=== PATIENT | female | born 1990 | race Caucasian/White ===

== ENCOUNTER 2023-06-12 14:37 | Emergency (ER) | payer MEDICAID, SELFPAY ==
[2023-06-12 14:58] VITALS: BP 135/92; PULSE 94; TEMP 36.7; O2SAT 99; BMI 22.5
--- NOTE | 2023-06-12 15:12 | US_ITS ---
The [address] [address] Patient Name: ELIDIA LEMA MRN: [id number] date: 1990 Sex: F Assigned Patient Location: ER Current Patient Location: ER Accession/Order Number: [id number] Exam Date: 06/12/2023 16:05 Report Date: 06/12/2023 17:15 At the request of: SILVA GUAJARDO Procedure: US pelvis transvaginal PROCEDURE: US pelvis transvaginal, US vas organ single comp, 06/12/2023 4:05 PM EDT CLINICAL INDICATIONS: Right pelvic pain, evaluation for adnexal torsion, prior section 2 para 1 LMP 05/16/2023 COMPARISON: None TECHNIQUE: Transabdominal, transvaginal pelvic sonogram, grayscale, color and spectral evaluation. FINDINGS: Uterus: 8.5 x 5.6 x 4.6 cm. The endometrial echo complex is normal 0.8 cm. 1.5 x 1.3 x 1.2 cm hypoechoic intramural ventral body uterine fibroid is seen. Right ovary: 3.9 x 2.8 x 3.7 cm, volume 21 mL. Subcentimeter follicles are seen. A dominant 2.7 x 1.1 x 1.1 cm right ovarian follicle identified. Left ovary: 3.5 x 1.5 x 2.3 cm, volume 6 mL. Normal sonographic morphology. No focal abnormality demonstrated. DUPLEX PELVIC VASCULATURE: There is intact flow within the ovarian tissue bilaterally by color-flow assessment. Arterial and venous spectral tracing is identified from within. Right resistive index 0.47, left 0.59. No significant pelvic free fluid. US/US pelvis transvaginal IMPRESSION: 1. 1.5 cm intramural ventral body uterine fibroid 2. 2.7 cm right ovarian dominant follicle. 3. Normal left ovarian sonographic morphology 4. No sonographic criteria for adnexal torsion 5. No pelvic free fluid Electronically authenticated by: YOKASTA CABRAL Date: 06/12/2023 17:15
--- NOTE | 2023-06-12 15:13 | ED.ABDPAIN1 ---
HPI - Abdominal Pain General Chief Complaint: Abdominal Pain Stated Complaint: RIGHT SIDE PAIN Time Seen by Provider: 06/12/23 15:07 Source: patient Mode of arrival: Wheelchair History of Present Illness HPI narrative: 33-year-old female presents to the emergency department for pain in the right lower abdomen. It started off mild last night and has gotten worse since then. She has a history of endometriosis and has had about 18 abdominal surgeries. She also reports that she had left ovarian torsion and had surgery for it. No vaginal bleeding or dysuria or back pain. She has been nauseous and the pain is severe and continuous. Related Data Previous Rx's ?Medication ?Instructions ?Recorded hydrocodone 5 mg-acetaminophen 325 1 tab PO Q6H PRN pain 5 days #20 06/12/23 mg tablet tabs Allergies Allergy/AdvReac Type Severity Reaction Status Date / Time Penicillins AdvReac Severe Verified 06/12/23 15:01 Sulfa (Sulfonamide AdvReac Unknown Verified 06/12/23 15:01 Antibiotics) Review of Systems ROS Narrative A ten point review of systems is negative except as noted above. Exam Narrative Exam Narrative: Nurses note and vital signs reviewed and patient is not hypoxic. General: The patient appears uncomfortable. She is lying on her right side with her hips and knees flexed Skin: Warm, dry, no pallor noted. There is no rash noted. Head: Normocephalic, atraumatic Eye: Normal conjunctiva, no drainage Ears, Nose, Mouth, and Throat: oral mucosa is moist. Nares patent. Cardiovascular: Regular Rate and Rhythm Respiratory: Patient is in no distress, no accessory muscle use, lungs are clear to auscultation, no wheezing, rales or rhonchi Back: non-tender, no CVA tenderness bilaterally to percussion. GI: Nondistended, tenderness present in the right lower quadrant. Musculoskeletal: No joint swelling Neurological: A&O, normal speech Psychiatric: Cooperative, tearful Constitutional Vital Signs, click to edit/add: Last Vital Signs Temp 98.0 F 06/12/23 14:58 Pulse 94 H 06/12/23 14:58 Resp 20 06/12/23 14:58 BP 135/92 H 06/12/23 14:58 Pulse Ox 99 06/12/23 14:58 O2 Del Method Room Air 06/12/23 14:58 Course Vital Signs Vital signs: Vital Signs Temperature 98.0 F 06/12/23 14:58 Pulse Rate 94 H 06/12/23 14:58 Respiratory Rate 20 06/12/23 14:58 Blood Pressure 135/92 H 06/12/23 14:58 Pulse Oximetry 99 06/12/23 14:58 Oxygen Delivery Method Room Air 06/12/23 14:58 Temperature 98.0 F 06/12/23 14:58 Pulse Rate 94 H 06/12/23 14:58 Respiratory Rate 20 06/12/23 14:58 Blood Pressure 135/92 H 06/12/23 14:58 Pulse Oximetry 99 06/12/23 14:58 Oxygen Delivery Method Room Air 06/12/23 14:58 MDM - Abdominal Pain MDM Narrative Medical decision making narrative: Workup including pelvic ultrasound and CT abdomen is negative. 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 Treatment diagnosis and follow-up were discussed with the patient and her mother. Differential Diagnosis Differential diagnosis: Likely abdominal pain, acute appendicitis, constipation, endometriosis and gastroenteritis Lab Data Attestation: I reviewed the patient's lab results. Labs: Lab Results 06/12/23 06/12/23 Range/Units 15:17 17:46 WBC 11.5 H (4.0-11.0) 10^3/uL RBC 4.24 (4.20-5.40) 10^6/uL Hgb 11.0 L (12.0-16.0) g/dL Hct 34.8 L (36.0-48.0) % MCV 82.1 (81.0-99.0) fL MCH 25.9 L (26.7-34.0) pg MCHC 31.6 (29.9-35.2) g/dL RDW 16.0 H (11.0-15.0) % Plt Count 266 (150-450) 10^3/uL MPV 10.5 (9.5-13.5) fL Neut % (Auto) 80.2 H (43.0-75.0) % Lymph % (Auto) 14.4 L (20.5-60.0) % [place] % (Auto) 4.4 (1.7-12.0) % Eos % (Auto) 0.3 L (0.9-7.0) % Baso % (Auto) 0.4 (0.2-2.0) % Neut # (Auto) 9.3 H (1.4-6.5) 10^3/uL Lymph # (Auto) 1.7 (1.2-3.8) 10^3/uL [place] # (Auto) 0.5 (0.3-0.8) 10^3/uL Eos # (Auto) 0.0 (0.0-0.7) 10^3/uL Baso # (Auto) 0.1 (0.0-0.1) 10^3/uL Abs Immat Gran (auto) 0.03 (0.00-0.03) 10^3/uL Imm/Tot Granulo (auto) 0.3 (0.0-0.5) % Sodium 140 (136-145) mmol/L Potassium 3.9 (3.5-5.1) mmol/L Chloride 103 (98-107) mmol/L Carbon Dioxide 24.1 (21.0-32.0) mmol/L Anion Gap 16.8 BUN 9.0 (7.0-18.0) mg/dL Creatinine 0.68 (0.55-1.02) mg/dL Est GFR ( Amer) >60 (>=60) Est GFR (Non-Af Amer) >60 (>=60) BUN/Creatinine Ratio 13.2 Glucose 94 (74-106) mg/dL Calcium 8.9 (8.5-10.1) mg/dL Serum HCG, Qual Negative (NEGATIVE) Urine Color Lt. yellow (YELLOW) Urine Clarity Clear (CLEAR) Urine pH 5.5 (5.0-9.0) Ur Specific [place] 1.010 (1.005-1.025) Urine Protein Negative (NEG/TRACE) mg/dL Urine Glucose (UA) Negative (NEGATIVE) mg/dL Urine Ketones Trace A (NEGATIVE) mg/dL Urine Occult Blood Negative (NEGATIVE) Urine Nitrite Negative (NEGATIVE) Urine Bilirubin Negative (NEGATIVE) Urine Urobilinogen 0.2 (0.2-1.0) EU/dL Ur Leukocyte Esterase Negative (NEGATIVE) Urine RBC None seen (0-2) #/HPF Urine WBC None seen (NONE SEEN) #/HPF Ur Squamous Epith Cells Few A (NONE/RARE) #/LPF Urine Crystals None seen (None Seen) #/HPF Urine Bacteria None seen (NONE SEEN) #/HPF Urine Casts None seen (NONE SEEN) #/LPF Urine Mucus None seen (NONE SEEN) Imaging Data CT scan - abdomen: Radiologist's impression: ITS Impressions Transvaginal US 06/12/23 15:12 IMPRESSION: 1. 1.5 cm intramural ventral body uterine fibroid 2. 2.7 cm right ovarian dominant follicle. 3. Normal left ovarian sonographic morphology 4. No sonographic criteria for adnexal torsion 5. No pelvic free fluid Electronically authenticated by: YOKASTA CABRAL Date: 06/12/2023 17:15 Abdomen/Pelvis CT 06/12/23 16:31 IMPRESSION: Small area of nonspecific mild segmental right hepatic lobe periportal edema. Normal appendix. Electronically authenticated by: JUVENCIO ROSS Date: 06/12/2023 17:51 Discharge Plan Discharge Stand Alone Forms: Portal Instructions Chief Complaint: Abdominal Pain Clinical Impression: Abdominal pain Patient Disposition: Home, Self-Care Time of Disposition Decision: 18:07 Condition: Good Mode of Transportation: Private Vehicle Prescriptions / Home Meds: New hydrocodone-acetaminophen 5-325 mg tablet 1 tab PO Q6H PRN (Reason: pain) 5 Days Qty: 20 0RF Print Language: Czech Instructions: Abdominal Pain (ED) Additional Instructions: Call Dr. Painter's office in the morning Referrals: Riley Lackey MD [Primary Care Provider] - 1 week
[2023-06-12] MEDS: ONDANSETRON PF 4 MG/2 ML VIAL IV ×2 (15:23→18:43)
[2023-06-12] MEDS: MORPHINE SULFATE 4 MG/ML VIAL IV ×2 (15:23→18:36)
[2023-06-12 15:28] LABS: Basophils Absolute Auto 0.1 10^3/uL (0.0-0.1); Basophils Percent Auto 0.4 % (0.2-2.0); Eosinophils Percent Auto 0.3 % (0.9-7.0); Hematocrit 34.8 % (36.0-48.0); Immature Granulocytes Abs Auto 0.03 10^3/uL (0.00-0.03); Immature Granulocytes Pct Auto 0.3 % (0.0-0.5); Lymphocytes Absolute Auto 1.7 10^3/uL (1.2-3.8); Lymphocytes Percent Auto 14.4 % (20.5-60.0); Mean Corpuscular HGB Conc 31.6 g/dL (29.9-35.2); Mean Corpuscular Hemoglobin 25.9 pg (26.7-34.0); Mean Corpuscular Volume 82.1 fL (81.0-99.0); Mean Platelet Volume 10.5 fL (9.5-13.5); Monocytes Absolute Auto 0.5 10^3/uL (0.3-0.8); Monocytes Percent Auto 4.4 % (1.7-12.0); Neutrophils Absolute Auto 9.3 10^3/uL (1.4-6.5); Neutrophils Percent Auto 80.2 % (43.0-75.0); Platelet Count 266 10^3/uL (150-450); Red Blood Count 4.24 10^6/uL (4.20-5.40); White Blood Count 11.5 10^3/uL (4.0-11.0)
[2023-06-12 15:34] LABS: Anion Gap 16.8; BUN Creatinine Ratio 13.2; Calcium 8.9 mg/dL (8.5-10.1); Carbon Dioxide 24.1 mmol/L (21.0-32.0); Chloride 103 mmol/L (98-107); Estimated GFR (African America >60 (>=60); Estimated GFR (Non-African Ame >60 (>=60); Glucose 94 mg/dL (74-106); Potassium 3.9 mmol/L (3.5-5.1); Sodium 140 mmol/L (136-145)
[2023-06-12 15:56] LABS: HCG Qualitative NEGATIVE (NEGATIVE)
--- NOTE | 2023-06-12 16:31 | CT_ITS ---
The [address] [address] Patient Name: ELIDIA LEMA MRN: [id number] date: 1990 Sex: F Assigned Patient Location: ER Current Patient Location: ER Accession/Order Number: [id number] Exam Date: 06/12/2023 17:02 Report Date: 06/12/2023 17:51 At the request of: SILVA GUAJARDO Procedure: CT abdomen pelvis w con EXAMINATION: CT abdomen pelvis w con, 06/12/2023 2:02 PM PDT HISTORY: Right lower quadrant abdominal pain, neg US COMPARISON: 09/20/2019 TECHNIQUE: CT scan of the abdomen and pelvis was performed with IV contrast. CT dose reduction technique was used, including Automated Exposure Control. FINDINGS: Lung: No significant finding. Liver: Segmental right hepatic lobe. Portal edema, for example series 3 image 16 through 23. Gallbladder: No significant finding. Spleen: No significant finding. Pancreas: No significant finding. Adrenal glands: No significant finding. Kidneys, ureters and bladder: No significant finding. Bowel: Colonic diverticulosis without diverticulitis. No evidence of bowel obstruction. Normal appendix. Peritoneum/retroperitoneum: No significant finding. Lymph nodes: No significant finding. Vessels: As above. Body wall: No significant finding. Reproductive: Right-sided corpus luteal cyst. Bones: No significant finding. CT/CT abdomen pelvis w con IMPRESSION: Small area of nonspecific mild segmental right hepatic lobe periportal edema. Normal appendix. Electronically authenticated by: JUVENCIO ROSS Date: 06/12/2023 17:51
[2023-06-12 17:59] LABS: Bilirubin Urine NEGATIVE (NEGATIVE); Blood Urine NEGATIVE (NEGATIVE); Clarity Urine CLEAR (CLEAR); Color Urine LT. YELLOW (YELLOW); Glucose Urine UA NEGATIVE (NEGATIVE); Ketones Urine TRACE mg/dL (NEGATIVE); Leukocyte Esterase Urine NEGATIVE (NEGATIVE); Nitrite Urine NEGATIVE (NEGATIVE); Protein Urine NEGATIVE (NEG/TRACE); Urobilinogen Urine 0.2 EU/dL (0.2-1.0); pH Urine 5.5 (5.0-9.0)
[2023-06-12 18:01] LABS: Bacteria Urine NONE SEEN #/HPF (NONE SEEN); Cast Seen? NONE SEEN #/LPF (NONE SEEN); Crystals Seen? None Seen #/HPF (None Seen); Mucus Urine NONE SEEN (NONE SEEN); RBC Urine NONE SEEN #/HPF (0-2); Squamous Epithelial Cell Urine FEW #/LPF (NONE/RARE); WBC Urine NONE SEEN #/HPF (NONE SEEN)
[2023-06-12 18:16] VITALS: O2SAT 98
== END 2023-06-12 18:53 | disposition home or self-care (01) ==
PROVIDERS: Emergency Provider Emergency Medicine; PCP Family Medicine
DX: R10.9 Unspecified abdominal pain (principal); Z98.890 Other specified postprocedural states
CPT/HCPCS: 36415; 74177; 76830; 80048; 81001; 84703; 85025; 93975; 96374; 96375; 96376; 99285; Q9967

== ENCOUNTER 2023-07-18 09:59 | Outpatient (OUT) | payer MEDICAID, SELFPAY ==
--- OUTSIDE RECORDS SUMMARY | 2023-07-18 10:27 | XMS_ITS ---
Patient Summarization (C-CDA 2.1 CCD) Created on: July 18, 2023 MICHAEL LEMAN : 1990 Sex: Female Author Organization Sample organization Care Team Providers Care Garment Tag Stringer Name Role Phone System, Provider Not In Primary Care Provider Un available SYSTEM, PROVIDER NOT IN Primary Care Unavaila ble DURGA BREWSTER Consulting Unavailabl e CHAMBERS, DURGA NAVARRO Attending Unavailabl e CHAMBERSDURGA Admitting Unavailabl e KARASIK ., DR LOMELI Attending Unavailabl e SHARMAINE, [facility] Primary Care Unavailable KARASIK ., DR LOMELI Consulting Unavailabl e KARASIK ., DR LOMELI Admitting Unavailabl e ZIEBER, DR MELISSA Perez Consulting Unavailable KARASIK ., DR LOMELI Consulting Unavailabl e KARASIK ., DR LOMELI Admitting Unavailabl e KARASIK ., DR LOMELI Attending Unavailabl e REQUEST, DR NESS LISTED Primary Care Unavaila ble KARASIK ., DR LOMELI Attending Unavailabl e KARASIK ., DR LOMELI Consulting Unavailabl e KARASIK ., DR LOMELI Admitting Unavailabl e NADERER, DR KATIE Kulkarni Primary Care Unavailable KARASIK ., DR LOMELI Attending Unavailabl e SHARMAINE, [facility] Primary Care Unavailable KARASIK ., DR LOMELI Admitting Unavailabl e KARASIK ., DR LOMELI Procedure Practitioner Loretta vailable KARASIK ., DR LOMELI Consulting Unavailabl e DIANA ., DR NORMAN Consulting Unavailable ZIEBER, DR MELISSA Perez Consulting Unavailable ZEKE CONKLIN Consulting Unavailable MELISSA MEJIA Consulting Unavailable ABENA, DR FUAD Perez Consulting Unavailable ABENA, DR FUAD Perez Admitting Unavailable SHARAMINE, [facility] Primary Care Unavailable ABENA, DR FUAD Perez Attending Unavailable SHER THORPE Consulting Unavailable SHER THORPE Admitting Unavailable SHER THORPE Attending Unavailable SHARMAINE, [facility] Primary Care Unavailable SHARMAINE, [facility] Primary Care Unavailable KARASIK ., DR LOMELI Attending Unavailabl e KARASIK ., DR LOMELI Admitting Unavailtobias SCHMID, MAYRA Primary Care Unavailable ERICKA ., DR LOMELI Admitting Unavailtobias e ERICKA ., DR LOMELI Attending Unavailabl e ERICKA ., DR LOMELI Attending Unavailabl e SHARMAINE, MAYRA Primary Care Unavailable KARASIK ., DR LOMELI Consulting Unavailabl e ERICKA ., DR LOMELI Admitting UnavailRADHA Juan Attending Unavailable ESTER ORTIZ Attending Unavailable Allergies Allergy Classification Reported Allergen(s) Allergy Type Date of Onset Reaction(s) Facility (1 source) Codeine Drug Allergy 0 GI Intolerance (3 sources) Penicillins; Translations: [Unknown] Propensity to adverse reactions to drug 3 Anaphylaxis (1 source) Sulfonamides (Antibiotic) Propensity to adverse reactions to drug 0 Hives (1 source) Codeine Drug Allergy 3 [facility] (1 source) Sulfonamides (Antibiotic) Drug allergy (disorder) 3 [facility] Encounters Encounter Date Encounter Type Care Provider Facility Start: 07-05-2023 End: 07-05-2023 ambulatory ESTER ORTIZ Not Available Start: 06-15-2023 End: 06-15-2023 ambulatory RADHA VALENTIN Not Available Start: 05-25-2022 End: 05-26-[address] ARMANI CABRAL . Facility:[facility] Start: 08-24-2021 End: 02-22-2022 ambulatory MAYRA SCHMID Facility:[facility] Start: 08-21-2021 End: 09-08-2021 ambulatory MAYRA SCHMID Facility:[facility] Start: 08-13-2021 End: 08-17-2021 Evaluation and management of inpatient DR ARMANI CABRAL . Facility:[facility] Start: 06-29-2021 End: 06-29-2021 ambulatory SHER THORPE Facility:[facility] Start: 06-29-2021 End: 06-29-[address] FUAD PINEDO Facility:[facility] Start: 06-25-2021 End: 06-26-[address] ARMANI CABRAL . Facility:[facility] Start: 06-24-2021 End: 05-19-[address] ARMANI CABRAL . Facility: Start: 06-09-2021 End: 06-10-[address] ARMANI CABRAL . Facility: Start: 03-08-2019 End: 03-08-2019 Patient encounter procedure PROVIDER NOT IN SYSTEM [facility] Start: 03-08-2019 End: 03-08-2019 Emergency department patient visit Jean-Claude Gannon Work Phone: [facility] Comment on above: Torsion of left ovar y and ovarian pedicle (Primary Dx); Left ovarian cyst Medical Equipment Procedure Code Equipment Code Equipment Origin al Text Equipment Identifier Dates Hemostat 1gm Isauro sta - [id number] FDA Start: 03-08-2019 Medications Current Medications Medication Drug Class(es) Dates Sig (Normalized) Sig (Original) vitamin with Ca-Iron-FA 27-1 mg Tab (1 source) take 1 tablet by once daily vitamin with Ca-Iron-FA 27-1 mg Tab Take 1 tablet by mouth daily . 0 Active Completed/Discontinued Medications Medication Drug Class(es) Dates Sig (Normalized) Sig (Original) acetaminophen 325 mg / HYDROcodone bitartrate 5 mg oral tablet (2 sources) Opioid Agonist Start: 03-08-2019 End: 03-09-2019 take 1 tablet by mouth every four hours as needed HYDROcodone-aceta minophen (NORCO) 5-325 mg per tablet 1 tablet Start: 03-08-2019 End: 03-11-2019 take 1 tablet by mouth every four hours as needed for pain, then take 3 tablets by mouth as needed for pain HYDROcodone-acetaminophen (NORCO) 5-325 mg per tablet Indications: Torsion of left ovary and ovarian pedicle Take 1 (one) tablet by mouth every 4 (four) hours as needed for pain (Days supply per fill: 3) . 18 tablet 0 03/08/2019 03/11/2019 Active calcium chloride 0.0014 meq/ml / potassium chloride 0.004 meq/ml / sodium chloride 0.103 meq/ml / sodium lactate 0.028 meq/ml injectable solution (2 sources) Start: 03-08-2019 End: 03-09-2019 take 100 mL intravenous route every hour 100 mL/hr, Intravenous, Continuous, Starting Jemima 03/08/19 at 1900, PACU (only) Start: 03-08-2019 End: 03-09-2019 lactated Ringers infusion 1 ml HYDROmorphone hydrochloride 1 mg/ml injection (4 sources) Opioid Agonist Start: 03-08-2019 End: 03-08-2019 0.5 mg, Intravenous, Every 5 min PRN, Pain, Starting Jemima 03/08/19 at 1803, For 6 doses, PACU (only) [] Give if fentanyl not effective or not ordered. [] Do not give more than 3 mg total. Start: 03-08-2019 End: 03-08-2019 HYDROmorphone (DILAUDID) 1 m g/mL injection - ADS Override Pull Start: 03-08-2019 End: 03-09-2019 take 0.5 mg intravenous route every two hours as needed HYDROmorphone (DILAUDID) injection 0.5 mg Start: 03-08-2019 End: 03-08-2019 HYDROmorphone (DILAUDID) inj ection 1 mg 1 ml ketorolac tromethamine 30 mg/ml injection (1 source) Nonsteroidal Anti-inflammatory Drug, Cyclooxygenase Inhibitor Start: 03-08-2019 End: 03-08-2019 ketorolac (TORADOL) injection 30 mg Start: 03-08-2019 End: 03-08-2019 ketorolac (TORADOL) injectio n 30 mg 2 ml metoclopramide 5 mg/ml injection (1 source) Dopamine-2 Receptor Antagonist Start: 03-08-2019 End: 03-08-2019 metoclopramide (REGLAN) injection 10 mg 1 ml morphine sulfate 2 mg/ml prefilled syringe (1 source) Opioid Agonist Start: 03-08-2019 End: 03-08-2019 morphine injection 4 mg naloxone (NARCAN) injection 0.1 mg (1 source) Start: 03-08-2019 End: 03-09-2019 naloxone (NARCAN) injection 0.1 mg 2 ml ondansetron 2 mg/ml injection (2 sources) Serotonin-3 Receptor Antagonist Start: 03-08-2019 End: 03-09-2019 take 4 mg intravenous route every six hours as needed ondansetron (ZOFRAN) injection 4 mg Payers Date Payer Category Payer Medicaid [id number] 1990 Unknown [id number] 2.16.84 [id number] 1990 Unknown [id number] 2.16.84 [id number] 1990 Unknown [id number] 2.16.84 [id number] 1990 Unknown [id number] 2.16.84 [id number] 1990 Unknown [id number] 2.16.84 [id number] 1990 Unknown [id number] 2.16.84 [id number] 1990 Unknown [id number] 2.16.84 [id number] 1990 Unknown [id number] 2.16.84 [id number] 1990 Unknown [id number] 2.16.84 [id number] 1990 Unknown [id number] 2.16.84 [id number] 1990 Unknown [id number] 2.16.84 [id number] 1959 Unknown [id number] Plan of Treatment Date Care Activity Detail Author Start: 10-08-2018 Influenza vaccination given SE QUENTIAL INFLUENZA VACCINE (#1) Start: 1993 History and physical examination, annual for health maintenance Wellness Visit Start: 1990 Screening for malign ant neoplasm of cervix PAP SMEAR Start: 1990 Tetanus vaccination TETANUS EVERY 10 YR Procedure on tissue specimen Tis earle Exam Pathology and Cytology STAT Release Upon Ordering for 1 Occurrences starting 03/08/2019 Comment on above: Release Upon Orderin g for 1 Occurrences starting 03/08/2019 Problems Active Problems Problem Classification Problem Date Documented Da te Episodic/Chronic Mood disorders (4 sources) Mood disorders; Translations: [DEPRESSION UNSPECIFIED] Onset: 05-25-2022 Other female genital disorders (1 source) Torsion of ovary; Translations: [Torsion of left ovary and ovarian pedicle] Episodic Ovarian cyst (1 source) Cyst of left ovary; Translations: [Left ovarian cyst] Unclassified (1 source) CONTACT W/AND (SUSP) EXPOS COVID-19; Translations: [CONTACT W/AND (SUSP) EXPOS COVID-19] Onset: 08-24-2021 Past or Other Problems Problem Classification Problem Date Documented Da te Episodic/Chronic Abdominal pain (1 source) Unspecified abdominal pain; Translations: [UNSPECIFIED ABDOMINAL PAIN] Onset: 07-09-2021 Episodic Conditions associated with dizziness or vertigo (4 sources) Dizziness and giddiness; Translations: [DIZZINESS AND GIDDINESS] Onset: 06-29-2021 Episodic Hemorrhage during ; abruptio placenta; placenta previa (4 sources) Low lying placenta NOS or without hemorrhage, unspecified trimester; Translations: [Low lying placenta NOS or without hemorrhage, third trimester] Onset: 06-24-2021 Episodic Other complications of ; puerperium affecting management of mother (3 sources) Abnormality in heart rate and rhythm complicating labor and delivery; Translations: [ABN FETL HEART RATE RHYTHM COMP L AND D] Onset: 08-13-2021 Episodic Other complications of (5 sources) Unspecified infection of urinary tract in , third trimester; Translations: [UNS INF URINARY TRACT PREG 3RD TRI] Onset: 06-29-2021 Episodic Other complications of (5 sources) Other specified related conditions, third trimester; Translations: [OTH SPEC PREG RELATED COND 3RD TRI] Onset: 06-25-2021 Episodic Other and delivery including normal (4 sources) Encounter for care and examination of lactating mother; Translations: [ENC CARE AND EXAM LACTATING MOTHER] Onset: 08-24-2021 Episodic Other screening for suspected conditions (not mental disorders or infectious disease) (4 sources) Encounter for screening for diabetes mellitus; Translations: [ENCOUNTER FOR SCREENING FOR DM] Onset: 06-09-2021 Episodic Residual codes; unclassified (1 source) 35 weeks gestation of ; Translations: [35 WEEKS GESTATION OF ] Onset: 08-24-2021 Episodic Residual codes; unclassified (1 source) 29 weeks gestation of ; Translations: [29 WEEKS GESTATION OF ] Onset: 07-09-2021 Episodic Residual codes; unclassified (1 source) Unspecified blood type, Rh negative; Translations: [UNSPECIFIED BLOOD TYPE RH NEGATIVE] Onset: 06-29-2021 Episodic Residual codes; unclassified (1 source) 28 weeks gestation of ; Translations: [28 WEEKS GESTATION OF ] Onset: 06-30-2021 Episodic Spondylosis; intervertebral disc disorders; other back problems (1 source) Dorsalgia, unspecified; Translations: [DORSALGIA UNSPECIFIED] Onset: 07-09-2021 Episodic Urinary tract infections (1 source) Urinary tract infection, site not specified; Translations: [UTI SITE NOT SPECIFIED] Onset: 07-09-2021 Episodic Procedures Date Procedure Procedure Detail Performing Clinician Start: 08-13-2021 Extraction of Products of Conception, Low Cervical, Open Approach DR ARMANI CABRAL . Start: 03-08-2019 Transvaginal doppler ultrasonography of pelvis Jean-Claude Adam [employer] Work Phone: Start: 03-08-2019 Choriogonadotropin ( test) [Presence] in Urine Jean-Claudekeisha Adam [employer] Work Phone: Start: 03-08-2019 Urinalysis Jean-Claude Adam [employer] Work Phone: Start: 03-08-2019 Basic metabolic 2000 panel - Serum or Plasma Jean-Claudekeisha Adam [employer] Work Phone: Start: 03-08-2019 Complete blood count with white cell differential, automated Jean-Claude Adam [employer]gal Work Phone: Start: 03-08-2019 Complete blood count with white cell differential, manual Jean-Claude Adam [employer] Work Phone: Results Test Name Value Interpretation Reference Range Facility TSHon 05-25-2022 TSH 1.146 uIU/mL Normal 0.358-3.740 [facility] Comment on above: Performed By: #### C BC #### [facility] [address] [place] [address] Dr. Vale Russell ANTIBODY ID PANELon 08-20-19 ANTIBODY ID PANEL Antibody ID Anti-D Blood Bank Notes possibly due to rhogam given on 06/26/21 Normal [facility] Comment on above: Performed By: #### C BC #### [facility] [address] [place] [address] Dr. Vale Russell CBC AUTO DIFFon 08-14-2021 BASO # 0.0 103/ul Normal 0.0-0.1 [facility] Comment on above: Performed By: #### C BC #### [facility] [address] [place] [address] Dr. Vale Russell Basophils/100 WBC (Bld) 0.2 % Normal 0.2-2.0 [facility] Comment on above: Performed By: #### C BC #### [facility] [address] [place] [address] Dr. Vale Russell EO # 0.0 103/ul Normal 0.0-0.7 [facility] Comment on above: Performed By: #### C BC #### [facility] [address] [place] [address] Dr. Vale Russell Eosinophils/100 WBC (Bld) 0.2 % Critically low 0.9-7.0 [facility] Comment on above: Performed By: #### C BC #### [facility] [address] [place] [address] Dr. Vale Russell Erythrocyte distribution width (RBC) [Ratio] 13.5 % Normal 11.0-15.0 [facility] Comment on above: Performed By: #### C BC #### [facility] [address] [place] [address] Dr. Vale Russell Hematocrit (Bld) [Volume fraction] 29.9 % Critically low 36.0-48.0 [facility] Comment on above: Performed By: #### C BC #### [facility] [address] [place] [address] Dr. Vale Russell Hemoglobin (Bld) [Mass/Vol] 10.1 g/dL Critically low 12.0-16.0 [facility] Comment on above: Performed By: #### C BC #### [facility] [address] [address] [address] Vale Russell IG # 0.13 10e3/ul Critically high 0.00-0.03 [facility] Comment on above: Performed By: #### C BC #### [facility] [address] [address] [address] Vale Russell IG % 0.8 % Critically high 0.0-0.5 [facility] Comment on above: Performed By: #### C BC #### [facility] [address] [address] [address] Vale Russell LYMPH # 1.8 103/ul Normal 1.2-3.8 [facility] Comment on above: Performed By: #### C BC #### [facility] [address] [place] [address] Dr. Vale Russell Lymphocytes/100 WBC (Bld) 11.0 % Critically low 20.5-60.0 [facility] Comment on above: Performed By: #### C BC #### [facility] [address] [place] [address] Dr. Vale Russell MANUAL DIFF REQ NO Normal [facility] Comment on above: Performed By: #### C BC #### [facility] [address] [place] [address] Dr. Vale Russell MCH (RBC) [Entitic mass] 31.2 pg Normal 26.7-34.0 [facility] Comment on above: Performed By: #### C BC #### [facility] [address] [place] [address] Dr. Vale Russell MCHC (RBC) [Mass/Vol] 33.8 g/dL Normal 29.9-35.2 [facility] Comment on above: Performed By: #### C BC #### [facility] [address] [place] [address] Dr. Vale Russell MCV (RBC) [Entitic vol] 92.3 fL Normal 81.0-99.0 [facility] Comment on above: Performed By: #### C BC #### [facility] [address] [address] [address] Vale Russell MONO # 1.0 103/ul Critically high 0.3-0.8 [facility] Comment on above: Performed By: #### C BC #### [facility] [address] [place] [address] Dr. Vale Russell Monocytes/100 WBC (Bld) 6.3 % Normal 1.7-12.0 [facility] Comment on above: Performed By: #### C BC #### [facility] [address] [place] [address] Dr. Vale Russell NEUT # 13.4 103/ul Critically high 1.4-6.5 [facility] Comment on above: Performed By: #### C BC #### [facility] [address] [place] [address] Dr. Vale Russell Neutrophils/100 WBC (Bld) 81.5 % Critically high 43.0-75.0 [facility] Comment on above: Performed By: #### C BC #### [facility] [address] [place] [address] Dr. Vale Russell Platelet mean volume (Bld) [Entitic vol] 10.2 fL Normal 9.5-13.5 [facility] Comment on above: Performed By: #### C BC #### [facility] [address] [place] [address] Dr. Vale Russell PLT 162 103/ul Normal 150-450 [facility] Comment on above: Performed By: #### C BC #### [facility] [address] [place] [address] Dr. Vale Russell RBC 3.24 106/ul Critically low 4.20-5.40 [facility] Comment on above: Performed By: #### C BC #### [facility] [address] [place] [address] Dr. Vale Russell WBC 16.4 103/ul Critically high 4.0-11.0 [facility] Comment on above: Performed By: #### C BC #### [facility] [address] [place] [address] Dr. Vale Russell CBC AUTO DIFFon 08-13-2021 BASO # 0.0 103/ul Normal 0.0-0.1 [facility] Comment on above: Performed By: #### C BC #### [facility] [address] [address] [address] Vale Russell Basophils/100 WBC (Bld) 0.3 % Normal 0.2-2.0 [facility] Comment on above: Performed By: #### C BC #### [facility] [address] [address] [address] Vale Russell EO # 0.1 103/ul Normal 0.0-0.7 [facility] Comment on above: Performed By: #### C BC #### [facility] [address] [place] [address] Dr. Vale Russell Eosinophils/100 WBC (Bld) 1.1 % Normal 0.9-7.0 [facility] Comment on above: Performed By: #### C BC #### [facility] [address] [place] [address] Dr. Vale Russell Erythrocyte distribution width (RBC) [Ratio] 13.3 % Normal 11.0-15.0 [facility] Comment on above: Performed By: #### C BC #### [facility] [address] [place] [address] Dr. Vale Russell Hematocrit (Bld) [Volume fraction] 36.4 % Normal 36.0-48.0 [facility] Comment on above: Performed By: #### C BC #### [facility] [address] [place] [address] Dr. Vale Russell Hemoglobin (Bld) [Mass/Vol] 12.1 g/dL Normal 12.0-16.0 [facility] Comment on above: Performed By: #### C BC #### [facility] [address] [place] [address] Dr. Vale Russell IG # 0.12 10e3/ul Critically high 0.00-0.03 [facility] Comment on above: Performed By: #### C BC #### [facility] [address] [place] [address] Dr. Vale Russell IG % 1.1 % Critically high 0.0-0.5 [facility] Comment on above: Performed By: #### C BC #### [facility] [address] [place] [address] Dr. Vale Russell LYMPH # 1.4 103/ul Normal 1.2-3.8 [facility] Comment on above: Performed By: #### C BC #### [facility] [address] [place] [address] Dr. Vale Russell Lymphocytes/100 WBC (Bld) 12.8 % Critically low 20.5-60.0 [facility] Comment on above: Performed By: #### C BC #### [facility] [address] [place] [address] Dr. Vale Russell MANUAL DIFF REQ NO Normal [facility] Comment on above: Performed By: #### C BC #### [facility] [address] [place] [address] Dr. Vale Russell MCH (RBC) [Entitic mass] 30.6 pg Normal 26.7-34.0 [facility] Comment on above: Performed By: #### C BC #### [facility] [address] [place] [address] Dr. Vale Russell MCHC (RBC) [Mass/Vol] 33.2 g/dL Normal 29.9-35.2 [facility] Comment on above: Performed By: #### C BC #### [facility] [address] [place] [address] Dr. Vale Russell MCV (RBC) [Entitic vol] 92.2 fL Normal 81.0-99.0 [facility] Comment on above: Performed By: #### C BC #### [facility] [address] [place] [address] Dr. Vale Russell MONO # 0.4 103/ul Normal 0.3-0.8 [facility] Comment on above: Performed By: #### C BC #### [facility] [address] [place] [address] Dr. Vale Russell Monocytes/100 WBC (Bld) 3.6 % Normal 1.7-12.0 [facility] Comment on above: Performed By: #### C BC #### [facility] [address] [place] [address] Dr. Vale Russell NEUT # 8.7 103/ul Critically high 1.4-6.5 [facility] Comment on above: Performed By: #### C BC #### [facility] [address] [place] [address] Dr. Vale Russell Neutrophils/100 WBC (Bld) 81.1 % Critically high 43.0-75.0 [facility] Comment on above: Performed By: #### C BC #### [facility] [address] [place] [address] Dr. Vale Russell Platelet mean volume (Bld) [Entitic vol] 10.2 fL Normal 9.5-13.5 [facility] Comment on above: Performed By: #### C BC #### [facility] [address] [place] [address] Dr. Vale Russell PLT 134 103/ul Critically low 150-450 [facility] Comment on above: Performed By: #### C BC #### [facility] [address] [place] [address] Dr. Vale Russell RBC 3.95 106/ul Critically low 4.20-5.40 [facility] Comment on above: Performed By: #### C BC #### [facility] [address] [place] [address] Dr. Vale Russell WBC 10.7 103/ul Normal 4.0-11.0 [facility] Comment on above: Performed By: #### C BC #### [facility] [address] [place] [address] Dr. Vale Russell [facility]on SARS-CoV-2 (COVID-19) RNA VIGNESH+probe Ql (Unsp spec) Not detected Normal NOT DETECTED [facility] Comment on above: Result Comment: When diagnostic testing is negative, the possibility of a false negative should be considered in the context of a patient's recent exposures and the presence of clinical signs and symptoms consistent with SARS-CoV-2. This test is not yet approved or cleared by the [place] FDA. When there are no FDA-approved or cleared tests available, and other criteria are met, FDA can make tests available under an emergency access mechanism called an Emergency Use Authorization (EUA). The EUA for this test is supported by the [place] of Health and Human Service's declaration that circumstances exist to justify the emergency use of in vitro diagnostics for the detection and/or diagnosis of the virus that causes COVID-19. This EUA will remain in effect for the duration of the COVID-19 declaration justifying emergency of IVDs, unless it is terminated or revoked by the FDA (after which the test may no longer be used). Performed By: #### C VDTBH #### [facility] [address] [place] [address] Dr. Vale Russell DRUG SCREEN RAPID (URINE)on 08-13-2021 AMP Negative Normal NEGATIVE [facility] Comment on above: Performed By: #### D RUGRPD #### [facility] [address] [place] [address] Dr. Vale Russell BAR Negative Normal NEGATIVE [facility] Comment on above: Performed By: #### D RUGRPD #### [facility] [address] [place] [address] Dr. Vale Russell BUP Negative Normal NEGATIVE [facility] Comment on above: Performed By: #### D RUGRPD #### [facility] [address] [place] [address] Dr. Vale Russell BZO Negative Normal NEGATIVE [facility] Comment on above: Performed By: #### D RUGRPD #### [facility] [address] [place] [address] Dr. Vale Russell HANH Negative Normal NEGATIVE [facility] Comment on above: Performed By: #### D RUGRPD #### [facility] [address] [place] [address] Dr. Vale Russell CUT-OFFS SEE BELOW Normal [facility] Comment on above: Result Comment: AMP (Amphetamine): 500ng/mL, BAR (Barbituates): 200 ng/mL, BZO (Benzodiazepines): 150 ng/mL, BUP (Buprenorphine): 10 ng/mL, HANH (Cocaine): 150 ng/mL, mAMP (Methamphetamine): 500 ng/mL, MTD (Methadone): 200 ng/mL, OPI (Opiates): 100 ng/mL, OXY (Oxycodone): 100 ng/mL, PCP (Phencyclidine): 25 ng/mL, PPX (Propoxyphene): 300 ng/mL, THC (Cannabinoids): 50 ng/mL, TCA (Trycyclic Antidepressants): 300 ng/mL Performed By: #### D RUGRPD #### [facility] [address] [place] [address] Dr. Vale Russell DRUG CUT HEADER DRUG CLASS TEST SYST EM CUT-OFF CONCENTRATIONS ARE FOLLOWS: Normal [facility] Comment on above: Performed By: #### D RUGRPD #### [facility] [address] [place] [address] Dr. Vale Russell mAMP Negative Normal NEGATIVE [facility] Comment on above: Performed By: #### D RUGRPD #### [facility] [address] [place] [address] Dr. Vale Russell MTD Negative Normal NEGATIVE [facility] Comment on above: Performed By: #### D RUGRPD #### [facility] [address] [place] [address] Dr. Vale Russell OPI Negative Normal NEGATIVE [facility] Comment on above: Performed By: #### D RUGRPD #### [facility] [address] [place] [address] Dr. Vale Russell OXY Negative Normal NEGATIVE [facility] Comment on above: Performed By: #### D RUGRPD #### [facility] [address] [place] [address] Dr. Vale Russell PCP Negative Normal NEGATIVE [facility] Comment on above: Performed By: #### D RUGRPD #### [facility] [address] [place] [address] Dr. Vale Russell PPX Negative Normal NEGATIVE [facility] Comment on above: Performed By: #### D RUGRPD #### [facility] [address] [place] [address] Dr. Vale Russell TCA Negative Normal NEGATIVE [facility] Comment on above: Performed By: #### D RUGRPD #### [facility] [address] [place] [address] Dr. Vale Russell THC Negative Normal NEGATIVE [facility] Comment on above: Performed By: #### D RUGRPD #### [facility] [address] [place] [address] Dr. Vale Russell TYPE AND SCREENon 08-13-2021 TYPE AND SCREEN Negative Normal [facility] Comment on above: Performed By: #### T NS #### [facility] [address] [place] [address] Dr. Vale Russell UA (CLEAN/CATCH) [employer] PROFESSOR/MICRO I F IND.on 08-13-2021 Bilirubin Ql (U) Negative Normal NEGATIVE [facility] Comment on above: Performed By: #### D RUGRPD #### [facility] [address] [place] [address] Dr. Vale Russell Clarity (U) CLEAR Normal CLEAR [facility] Comment on above: Performed By: #### D RUGRPD #### [facility] [address] [place] [address] Dr. Vale Russell Color (U) LT. YELLOW Normal YELLOW [facility] Comment on above: Performed By: #### D RUGRPD #### [facility] [address] [place] [address] Dr. Vale Russell Glucose Ql (U) Negative Normal NEGATIVE [facility] Comment on above: Performed By: #### D RUGRPD #### [facility] [address] [place] [address] Dr. Vale Russell Hemoglobin Ql (U) SMALL Abnormal NEGATIVE [facility] Comment on above: Performed By: #### D RUGRPD #### [facility] [address] [place] [address] Dr. Vale Russell Ketones Ql (U) Negative Normal NEGATIVE [facility] Comment on above: Performed By: #### D RUGRPD #### [facility] [address] [place] [address] Dr. Vale Russell LEUKOCYTES LARGE Abnormal NEGATIVE [facility] Comment on above: Performed By: #### D RUGRPD #### [facility] [address] [place] [address] Dr. Vale Russell Nitrite Ql (U) Negative Normal NEGATIVE [facility] Comment on above: Performed By: #### D RUGRPD #### [facility] [address] [place] [address] Dr. Vale Russell pH (U) 6.0 [pH] Normal 5-9 [facility] Comment on above: Performed By: #### D RUGRPD #### [facility] [address] [place] [address] Dr. Vale Russell SPEC GRAVITY 1.015 Normal 1.005-<=1.025 [facility] Comment on above: Performed By: #### D RUGRPD #### [facility] [address] [place] [address] Dr. Vale Russell UA PROTEIN Negative Normal NEGATIVE/ TRACE [facility] Comment on above: Performed By: #### D RUGRPD #### [facility] [address] [place] [address] Dr. Vale Russell UR MICRO IND INDICATED Normal [facility] Comment on above: Performed By: #### D RUGRPD #### [facility] [address] [place] [address] Dr. Vale Russell Urobilinogen Qn (U) 0.2 {Carlie'U}/dL Normal 0.2 - 1. 0 [facility] Comment on above: Performed By: #### D RUGRPD #### [facility] [address] [place] [address] Dr. Vale Russell URINE MICROSCOPIC ONLYon BACTERIA TRACE Abnormal NONE SEEN [facility] Comment on above: Performed By: #### D RUGRPD #### [facility] [address] [place] [address] Dr. Vale Russell Bacteria identified Cx Nom (U) NOT INDICATED Normal [facility] Comment on above: Performed By: #### D RUGRPD #### [facility] [address] [address] [address] Vale Russell CAST NONE SEEN Normal NONE SEEN [facility] Comment on above: Performed By: #### D RUGRPD #### [facility] [address] [place] [address] Dr. Vale Russell Crystals LM Nom (Urine sed) NONE SEEN Normal NONE SEEN [facility] Comment on above: Performed By: #### D RUGRPD #### [facility] [address] [place] [address] Dr. Vale Russell Epithelial cells LM Ql (Urine sed) FEW Abnormal NONE SEEN /RARE [facility] Comment on above: Performed By: #### D RUGRPD #### [facility] [address] [place] [address] Dr. Vale Russell MUCOUS NONE SEEN Normal NONE SEEN [facility] Comment on above: Performed By: #### D RUGRPD #### [facility] [address] [place] [address] Dr. Vale Russell RBC 2-5 Abnormal 0-2 [facility] Comment on above: Performed By: #### D RUGRPD #### [facility] [address] [place] [address] Dr. Vale Russell WBC 5-10 Abnormal NONE SEEN [facility] Comment on above: Performed By: #### D RUGRPD #### [facility] [address] [place] [address] Dr. Vale Russell US PREG BIOPHY W NON STRESSo n 08-13-2021 US PREG BIOPHY W NON STRESS EXAMINATION: US PREG BIOPHY W NON STRESS HISTORY: heart deceleration COMPARISON: No relevant comparison available. TECHNIQUE: Ultrasound biophysical profile was performed. FINDINGS: BREATHING MOVEMENTS: 2.0 GROSS BODY MOVEMENTS: 2.0 TONE: 2.0 QUALITATIVE AMNIOTIC FLUID VOLUME: 2.0 PRESENTATION: Cephalic HEART RATE: 133.0 bpm bpm. AMNIOTIC FLUID VOLUME: 18.2 cm GESTATIONAL AGE: 35 weeks 3 days CONCLUSION: Total biophysical profile score 8.0. Electronically authenticated by: MELISSA GOLDSTEIN Date: 2021-08-13 07:38 Normal [facility] US PREG PLACENTAon US PREG PLACENTA EXAMINATION: US PREG PLACENTA HISTORY: heart deceleration COMPARISON: Ultrasound placenta 06/24/2021 FINDINGS: PLACENTA: Posterior, grade 2, with lower margin 7.8 cm from os. No evidence of abruption or subchorionic hematoma. CERVIX LENGTH: Not measured. HEART RATE: 136 bpm OTHER: JASON 18.2 cm IMPRESSION: 1. Posterior placenta without previa or acute abnormality. Numerous calcifications consistent with grade 2. 2. Single live intrauterine with normal JASON. 3. No nuchal cord on today's study. Electronically authenticated by: MELISSA GOLDSTEIN Date: 2021-08-13 07:42 Normal [facility] CBC AUTO DIFFon 06-29-2021 BASO # 0.0 103/ul Normal 0.0-0.1 [facility] Comment on above: Performed By: #### C BC #### [facility] [address] [place] [address] Dr. Vale Russell Basophils/100 WBC (Bld) 0.2 % Normal 0.2-2.0 [facility] Comment on above: Performed By: #### C BC #### [facility] [address] [place] [address] Dr. Vale Russell EO # 0.1 103/ul Normal 0.0-0.7 [facility] Comment on above: Performed By: #### C BC #### [facility] [address] [place] [address] Dr. Vale Russell Eosinophils/100 WBC (Bld) 1.1 % Normal 0.9-7.0 [facility] Comment on above: Performed By: #### C BC #### [facility] [address] [place] [address] Dr. Vale Russell Erythrocyte distribution width (RBC) [Ratio] 13.0 % Normal 11.0-15.0 [facility] Comment on above: Performed By: #### C BC #### [facility] [address] [place] [address] Dr. Vale Russell Hematocrit (Bld) [Volume fraction] 37.3 % Normal 36.0-48.0 [facility] Comment on above: Performed By: #### C BC #### [facility] [address] [address] [address] Vale Russell Hemoglobin (Bld) [Mass/Vol] 12.3 g/dL Normal 12.0-16.0 [facility] Comment on above: Performed By: #### C BC #### [facility] [address] [address] [address] Vale Russell IG # 0.11 10e3/ul Critically high 0.00-0.03 [facility] Comment on above: Performed By: #### C BC #### [facility] [address] [place] [address] Dr. Vale Russell IG % 0.9 % Critically high 0.0-0.5 [facility] Comment on above: Performed By: #### C BC #### [facility] [address] [place] [address] Dr. Vale Russell LYMPH # 2.0 103/ul Normal 1.2-3.8 [facility] Comment on above: Performed By: #### C BC #### [facility] [address] [place] [address] Dr. Vale Russell Lymphocytes/100 WBC (Bld) 16.0 % Critically low 20.5-60.0 [facility] Comment on above: Performed By: #### C BC #### [facility] [address] [place] [address] Dr. Vale Russlel MANUAL DIFF REQ NO Normal [facility] Comment on above: Performed By: #### C BC #### [facility] [address] [place] [address] Dr. Vale Russell MCH (RBC) [Entitic mass] 30.7 pg Normal 26.7-34.0 [facility] Comment on above: Performed By: #### C BC #### [facility] [address] [place] [address] Dr. Vale Russell MCHC (RBC) [Mass/Vol] 33.0 g/dL Normal 29.9-35.2 [facility] Comment on above: Performed By: #### C BC #### [facility] [address] [address] [address] Vale Russell MCV (RBC) [Entitic vol] 93.0 fL Normal 81.0-99.0 [facility] Comment on above: Performed By: #### C BC #### [facility] [address] [address] [address] Vale Russell MONO # 0.8 103/ul Normal 0.3-0.8 [facility] Comment on above: Performed By: #### C BC #### [facility] [address] [address] [address] Vale Russell Monocytes/100 WBC (Bld) 6.2 % Normal 1.7-12.0 [facility] Comment on above: Performed By: #### C BC #### [facility] [address] [address] [address] Vale Russell NEUT # 9.5 103/ul Critically high 1.4-6.5 [facility] Comment on above: Performed By: #### C BC #### [facility] [address] [address] [address] Vale Russell Neutrophils/100 WBC (Bld) 75.6 % Critically high 43.0-75.0 [facility] Comment on above: Performed By: #### C BC #### [facility] [address] [address] [address] Vale Russell Platelet mean volume (Bld) [Entitic vol] 9.9 fL Normal 9.5-13.5 [facility] Comment on above: Performed By: #### C BC #### [facility] [address] [address] [address] Vale Russell PLT 167 103/ul Normal 150-450 [facility] Comment on above: Performed By: #### C BC #### [facility] [id number] Vale Russell RBC 4.01 106/ul Critically low 4.20-5.40 [facility] Comment on above: Performed By: #### C BC #### [facility] [address] [place] [address] Dr. Vale Russell WBC 12.5 103/ul Critically high 4.0-11.0 [facility] Comment on above: Performed By: #### C BC #### [facility] [address] [place] [address] Dr. Vale Russell CULTURE URINEon 06-29-2021 CULTURE URINE Culture Observations : MODERATE GROWTH OF MIXED GENITAL CHU. NO POTENTIAL PATHOGENS SEEN. Normal [facility] Comment on above: Performed By: #### C BC #### [facility] [address] [place] [address] Dr. Vale Russell ER URINE PROFILEon Bilirubin Ql (U) Negative Normal NEGATIVE [facility] Comment on above: Performed By: #### Brielle BAEZ UMICRO #### [facility] [address] [place] [address] Dr. Vale Russell Clarity (U) CLEAR Normal CLEAR [facility] Comment on above: Performed By: #### Brielle BAEZ UMICRO #### [facility] [address] [place] [address] Dr. Vale Russell Color (U) LT. YELLOW Normal YELLOW [facility] Comment on above: Performed By: #### Brielle BAEZ UMICRO #### [facility] [address] [place] [address] Dr. Vale PATINOBonilla A micrscopic examination will be performed if indicated. Normal [facility] Comment on above: Performed By: #### Brielle BAEZ UMICRO #### [facility] [address] [place] [address] Dr. Vale Russell Glucose Ql (U) Negative Normal NEGATIVE [facility] Comment on above: Performed By: #### LISSETTE ELKINSRO #### [facility] [address] [place] [address] Dr. Vale Russell Hemoglobin Ql (U) Negative Normal NEGATIVE [facility] Comment on above: Performed By: #### Brielle BAEZ UMKHADARRO #### [facility] [address] [place] [address] Dr. Vale Russell Ketones Ql (U) Negative Normal NEGATIVE [facility] Comment on above: Performed By: #### Brielle BAEZ UMICRO #### [facility] [address] [place] [address] Dr. Vale Russell LEUKOCYTES MODERATE Abnormal NEGATIVE [facility] Comment on above: Performed By: #### Brielle BAEZ UMICRO #### [facility] [address] [place] [address] Dr. Vale Russell Nitrite Ql (U) Negative Normal NEGATIVE [facility] Comment on above: Performed By: #### Brielle BAEZ UMICRO #### [facility] [address] [place] [address] Dr. Vale Russell pH (U) 6.5 [pH] Normal 5-9 [facility] Comment on above: Performed By: #### Brielle BAEZ UMICRO #### [facility] [address] [place] [address] Dr. Vale Russell SPEC GRAVITY <=1.005 Abnormal 1.005-<=1.025 [facility] Comment on above: Performed By: #### Brielle BAEZ UMICRO #### [facility] [address] [place] [address] Dr. Vale Russell UA PROTEIN Negative Normal NEGATIVE/ TRACE [facility] Comment on above: Performed By: #### Brielle BAEZ UMICRO #### [facility] [address] [place] [address] Dr. Vale Russell UR MICRO IND INDICATED Normal [facility] Comment on above: Performed By: #### Brielle BAEZ UMICRO #### [facility] [address] [place] [address] Dr. Vale Russell Urobilinogen Qn (U) 0.2 {Carlie'U}/dL Normal 0.2 - 1. 0 [facility] Comment on above: Performed By: #### Brielle BAEZ UMICRO #### [facility] [address] [place] [address] Dr. Vale Russell PROF 14(COMP METB)on 022 Albumin [Mass/Vol] 3.0 g/dL Critically low 3.4-5.0 [facility] Comment on above: Performed By: #### C MP #### [facility] [address] [place] [address] Dr. Vale Russell Albumin/Globulin [Mass ratio] 0.8 {ratio} Normal [facility] Comment on above: Performed By: #### C MP #### [facility] [address] [address] [address] Vale Russell ALP [Catalytic activity/Vol] 86 U/L Normal 46-116 [facility] Comment on above: Performed By: #### C MP #### [facility] [address] [place] [address] Dr. Vale Russell ALT [Catalytic activity/Vol] 21 U/L Normal 14-59 [facility] Comment on above: Performed By: #### C MP #### [facility] [address] [place] [address] Dr. Vale Russell Anion gap [Moles/Vol] 11.1 mmol/L Normal [facility] Comment on above: Performed By: #### C MP #### [facility] [address] [place] [address] Dr. Vale Russell AST [Catalytic activity/Vol] 16 U/L Normal 15-37 [facility] Comment on above: Performed By: #### C MP #### [facility] [address] [place] [address] Dr. Vale Russell Bilirubin [Mass/Vol] 0.3 mg/dL Normal 0.2-1.0 [facility] Comment on above: Performed By: #### C MP #### [facility] [address] [place] [address] Dr. Vale Russell Calcium [Mass/Vol] 9.0 mg/dL Normal 8.5-10.1 [facility] Comment on above: Performed By: #### C MP #### [facility] [address] [place] [address] Dr. Vale Russell Chloride [Moles/Vol] 106 mmol/L Normal 98-107 [facility] Comment on above: Performed By: #### C MP #### [facility] [address] [address] [address] Vale Russell CO2 [Moles/Vol] 25.6 mmol/L Normal 21.0-32.0 [facility] Comment on above: Performed By: #### C MP #### [facility] [address] [address] [address] Vale Russell Creatinine [Mass/Vol] 0.60 mg/dL Normal 0.55-1.02 [facility] Comment on above: Performed By: #### C MP #### [facility] [address] [address] [address] aVle Russell EGFR-AF [place] >60 Normal >=60 [facility] Comment on above: Performed By: #### C MP #### [facility] [address] [place] [address] Dr. Vale Russell EGFR-NON AF [place] >60 Normal >=60 [facility] Comment on above: Performed By: #### C MP #### [facility] [address] [place] [address] Dr. Vale Russell Globulin (S) [Mass/Vol] 3.8 g/dL Normal [facility] Comment on above: Performed By: #### C MP #### [facility] [address] [place] [address] Dr. Vale Russell Glucose [Mass/Vol] 79 mg/dL Normal 74-106 [facility] Comment on above: Performed By: #### C MP #### [facility] [address] [place] [address] Dr. Vale Russell Potassium [Moles/Vol] 3.7 mmol/L Normal 3.5-5.1 [facility] Comment on above: Performed By: #### C MP #### [facility] [address] [place] [address] Dr. Vale Russell Protein [Mass/Vol] 6.8 g/dL Normal 6.4-8.2 [facility] Comment on above: Performed By: #### C MP #### [facility] [address] [address] [address] Vale Russell Sodium [Moles/Vol] 139 mmol/L Normal 136-145 [facility] Comment on above: Performed By: #### C MP #### [facility] [address] [place] [address] Dr. Vale Russell Urea nitrogen [Mass/Vol] 9.0 mg/dL Normal 7.0-18.0 [facility] Comment on above: Performed By: #### C MP #### [facility] [address] [place] [address] Dr. Vale Russell Urea nitrogen/Creatinine [Mass ratio] 15.0 mg/mg Normal [facility] Comment on above: Performed By: #### C MP #### [facility] [address] [place] [address] Dr. Vale Russell URINE MICROSCOPIC ONLYon BACTERIA TRACE Abnormal NONE SEEN [facility] Comment on above: Performed By: #### Brielle BAEZ UMICRO #### [facility] [address] [place] [address] Dr. Vale Russell Bacteria identified Cx Nom (U) INDICATED Normal [facility] Comment on above: Performed By: #### Brielle BAEZ UMICRO #### [facility] [address] [place] [address] Dr. Vale Russell CAST NONE SEEN Normal NONE SEEN [facility] Comment on above: Performed By: #### Brielle BAEZ UMICRO #### [facility] [address] [place] [address] Dr. Vale Russell Crystals LM Nom (Urine sed) NONE SEEN Normal NONE SEEN [facility] Comment on above: Performed By: #### Brielle BAEZ UMICRO #### [facility] [address] [place] [address] Dr. Vale Russell Epithelial cells LM Ql (Urine sed) FEW Abnormal NONE SEEN /RARE [facility] Comment on above: Performed By: #### Brielle BAEZ UMICRO #### [facility] [address] [place] [address] Dr. Vale Russell MUCOUS NONE SEEN Normal NONE SEEN [facility] Comment on above: Performed By: #### Brielle BAEZ UMICRO #### [facility] [address] [place] [address] Dr. Vale Russell RBC 2-5 Abnormal 0-2 [facility] Comment on above: Performed By: #### E SASHA UMICRO #### [facility] [address] [place] [address] Dr. Vale Russell WBC 50-75 Abnormal NONE SEEN [facility] Comment on above: Performed By: #### E SASHA UMICRO #### [facility] [address] [place] [address] Dr. Vale Russell RHOGAMon 06-26-2021 RHOGAM Status Information Issued Quantity 1 Product ID Rh Immune Globulin Lot Number [id number] Issue Date/Time [id number] Normal [facility] Comment on above: Performed By: #### R HOG #### [facility] [address] [place] [address] Dr. Vale Russell TYPE AND SCREENon 06-25-2021 TYPE AND SCREEN Negative Normal [facility] Comment on above: Performed By: #### C BC #### [facility] [address] [place] [address] Dr. Vale Russell US PREG TVon 06-24-2021 US PREG TV EXAMINATION: US PREG PLACENTA, US PREG TV HISTORY: Low lying placenta COMPARISON: Ultrasound anatomy 04/28/2021 FINDINGS: Presentation: Cephalic Placenta: Posterior with lower margin 4.8 cm from os. Heart rate: 154 bpm Cervix: 4.8 cm, closed. Gestational age: 28 weeks, 2 days YING: 09/14/2021 IMPRESSION: 1. Single live intrauterine . 2. Posterior placenta which is no longer low-lying. Electronically authenticated by: MELISSA GOLDSTEIN Date: 2021-06-24 09:07 Normal [facility] GLUCOSE - 1HRon 06-09-2021 Glucose [Mass/Vol] 130 mg/dL Critically high 74-106 [facility] Comment on above: Performed By: #### C BC #### [facility] [address] [place], [place] [id number] Dr. Vale Russell HEMOGRAM AND PLATELon 2021 Hematocrit (Bld) [Volume fraction] 35.6 % Critically low 36.0-48.0 [facility] Comment on above: Performed By: #### H H #### [facility] [address] [place] [address] Dr. Vale Russell Hemoglobin (Bld) [Mass/Vol] 11.8 g/dL Critically low 12.0-16.0 [facility] Comment on above: Performed By: #### H H #### [facility] [address] [place] [address] Dr. Vale Russell MCH (RBC) [Entitic mass] 31.0 pg Normal 26.7-34.0 [facility] Comment on above: Performed By: #### H H #### [facility] [address] [place] [address] Dr. Vale Russell MCHC (RBC) [Mass/Vol] 33.1 g/dL Normal 29.9-35.2 [facility] Comment on above: Performed By: #### H H #### [facility] [address] [place] [address] Dr. Vale Russell MCV (RBC) [Entitic vol] 93.4 fL Normal 81.0-99.0 [facility] Comment on above: Performed By: #### H H #### [facility] [address] [place] [address] Dr. Vale Russell PLT 180 103/ul Normal 150-450 [facility] Comment on above: Performed By: #### H H #### [facility] [address] [place] [address] Dr. Vale Russell RBC 3.81 106/ul Critically low 4.20-5.40 [facility] Comment on above: Performed By: #### H H #### [facility] [address] [place] [address] Dr. Vale Russell WBC 10.1 103/ul Normal 4.0-11.0 [facility] Comment on above: Performed By: #### H H #### [facility] [address] [address] [address] Vale Russell Consenton 12-03-2020 Consent [id number]. 00CD:127 [facility] Registrationon 12-03-2020 Registration [id number]. 00CD:127 [facility] CNCOon 05-05-2020 CNCO Letter Text Normal [facility] CNOVon 05-05-2020 CNOV Office Visit (REIAV) GIANELIDIA MARIN ([id number]) 1990 F Date Time Provider Department 05/05/20 8:45 AM MEG RODRIGUEZ During your visit today, we recorded the following information about you: Pulse Blood pressure Weight Height 73/minute 126/74 57.2 kg 1.6 m Last Period 05/04/20 Ara Handy MD 05/05/2020 6:04 PM Signed [facility] Date: 05/05/2020 Consultation Requested By: Dr Yuli Pulliam Elidia Lema is a 30 year old female presenting with the following history: HISTORY OF PRESENT ILLNESS: Elidia Lema is a 30 year old female with Refer to us by Dr. Pulliam for stage 4 endometriosis s/p 4 surgery. +bowel involvement. S/p lupron injection from -01/2020. She just have 1 normal period in April. Here to discuss about TTC. Irregular period. has 3 children from previous relationship. Started TTC May 2018. August 2018 Obstetric History T0 L0 SAB1 TAB0 Ectopic0 Multiple0 Live Births0 Fertility Evaluations and Treatments: Eval Checklist Results Date Comments HSG Hysteroscopy Laparoscopy OPK (Ovulation Predictor Kit) Ovarian [place] Saline Ultrasound Semen Analysis Ultrasound Other (See comments) MENSTRUAL HISTORY: Menarche Age: [age] year old Length of Cycle: qvaries, alot of breakthrough bleeding Irregular Days: 4-5 days Menstrual Flow: Light Menstrual Symptoms: Breast Tenderness,Mood Changes,Bloating,Cramp ing Patient's last menstrual period was 05/04/2020. PAST MEDICAL HISTORY Diagnosis Date - Endometriosis PAST SURGICAL HISTORY Procedure Laterality Date - PAST SURGICAL HISTORY OF 09/2019 ruptured pelvic cysts - PAST SURGICAL HISTORY OF 02/2019 ruptured pelvic cyst - PAST SURGICAL HISTORY OF ~2003, ~2014, 10/2018 pelvic surgery - removal of endometrosis - PAST SURGICAL HISTORY OF Bilateral 2017 breast implants - PAST SURGICAL HISTORY OF 10/05/2019 ROBOTIC FULGURATION OR EXCISION OF LESIONS OF THE OVARY PELVIC VISCERA OR PERITONEAL SURFACE BY ANY METHOD - PAST SURGICAL HISTORY OF 10/05/2019 CHROMOTUBATION OVIDUCT No family history on file. 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 - ibuprofen (MOTRIN) 600 mg tablet Take 1 tablet by mouth every 6 hours as needed for Pain. - acetaminophen (TYLENOL EXTRA STRENGTH) 500 mg tablet Take 2 tablets by mouth every 6 hours as needed for Pain. (Patient taking differently: Take 1,000 mg by mouth as needed for Pain. ) - ondansetron orally disintegrating (ZOFRAN ODT) 4 mg disintegrating tablet Take 4 mg by mouth every 8 hours as needed for Nausea/Vomiting. No current facility-administered medications on file prior to visit. ALLERGIES: Penicillins, Sulfa (Sulfonamide Antibiotics), and Codeine [facility] PAP Results: Normal Date: 2017 Comments: due for another pap exam in 05-06-2020 HPV Results: Negative Date: 2017 Blood Type: O NEGATIVE No results found for this basename: violeta hopper ASSESSMENT: Assessment: endometriosis, here to discuss fertility options. PLAN: Discuss with pt of options. I think it is reasonable to start TTC on her own. We discuss possible start fertility med vs. IVF after TTC for 3-6 months. Pt to call as needed. I spent 20 minutes in the visit, with more than 50% of the total wlvv-od-sqek time of the visit in counseling / coordination of care. Consultation requested by Dr. Pulliam for an opinion regarding endometriosis and my recommendations will be communicated back to the requesting physician by way of shared Medical record or letter via US mail , MD norton -Ara Handy, MD Ara Handy, MD Ara Handy MD 05/05/2020 9:25 AM Signed Consider clomid IUI or IVF if you are not by August. Dear Elidia, Thank you for seeing me today at the [facility]. I want to welcome you to my practice and answer some frequently asked questions. I know that we have discussed several things today and it can be overwhelming. I hope this information will help answer some of your questions. 1. How mami (more content not included)... Normal [facility] CONSULT PROGon 05-05-2020 CONSULT PROG HNO ID: [id number] Author: Meg Rodriguez Service: ? Author Type: Physician Type: Consult Progress Note Filed: 05/05/2020 6:04 PM Note Text: [facility] Date: 05/05/2020 Consultation Requested By: Dr Yuli Pulliam Elidia Lema is a 30 year old female presenting with the following history: HISTORY OF PRESENT ILLNESS: Elidia Lema is a 30 year old female with Refer to us by Dr. Pulliam for stage 4 endometriosis s/p 4 surgery. +bowel involvement. S/p lupron injection from -01/2020. She just have 1 normal period in April. Here to discuss about TTC. Irregular period. has 3 children from previous relationship. Started TTC May 2018. SAB August 2018 Obstetric History T0 L0 SAB1 TAB0 Ectopic0 Multiple0 Live Births0 Fertility Evaluations and Treatments: Eval Checklist Results Date Comments HSG Hysteroscopy Laparoscopy OPK (Ovulation Predictor Kit) Ovarian [place] Saline Ultrasound Semen Analysis Ultrasound Other (See comments) MENSTRUAL HISTORY: Menarche Age: [age] year old Length of Cycle: qvaries, alot of breakthrough bleeding Irregular Days: 4-5 days Menstrual Flow: Light Menstrual Symptoms: Breast Tenderness,Mood Changes,Bloating,Cramp ing Patient's last menstrual period was 05/04/2020. PAST MEDICAL HISTORY Diagnosis Date - Endometriosis PAST SURGICAL HISTORY Procedure Laterality Date - PAST SURGICAL HISTORY OF 09/2019 ruptured pelvic cysts - PAST SURGICAL HISTORY OF 02/2019 ruptured pelvic cyst - PAST SURGICAL HISTORY OF ~2003, ~2014, 10/2018 pelvic surgery - removal of endometrosis - PAST SURGICAL HISTORY OF Bilateral 2017 breast implants - PAST SURGICAL HISTORY OF 10/05/2019 ROBOTIC FULGURATION OR EXCISION OF LESIONS OF THE OVARY PELVIC VISCERA OR PERITONEAL SURFACE BY ANY METHOD - PAST SURGICAL HISTORY OF 10/05/2019 CHROMOTUBATION OVIDUCT No family history on file. 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 - ibuprofen (MOTRIN) 600 mg tablet Take 1 tablet by mouth every 6 hours as needed for Pain. - acetaminophen (TYLENOL EXTRA STRENGTH) 500 mg tablet Take 2 tablets by mouth every 6 hours as needed for Pain. (Patient taking differently: Take 1,000 mg by mouth as needed for Pain. ) - ondansetron orally disintegrating (ZOFRAN ODT) 4 mg disintegrating tablet Take 4 mg by mouth every 8 hours as needed for Nausea/Vomiting. No current facility-administered medications on file prior to visit. ALLERGIES: Penicillins, Sulfa (Sulfonamide Antibiotics), and Codeine [facility] PAP Results: Normal Date: 2017 Comments: due for another pap exam in 05-06-2020 HPV Results: Negative Date: 2017 Blood Type: O NEGATIVE No results found for this basename: rubqnt,vzvg ASSESSMENT: Assessment: endometriosis, here to discuss fertility options. PLAN: Discuss with pt of options. I think it is reasonable to start TTC on her own. We discuss possible start fertility med vs. IVF after TTC for 3-6 months. Pt to call as needed. I spent 20 minutes in the visit, with more than 50% of the total qvei-nt-hoev time of the visit in counseling / coordination of care. Consultation requested by Dr. Pulliam for an opinion regarding endometriosis and my recommendations will be communicated back to the requesting physician by way of shared Medical record or letter via US mail , MD signature -MD Ara Fritz MD [facility]COon 04-14-2020 CNCO Letter Text [facility]OVon 04-14-2020 CNOV Office Visit (GMIGFV ) GIANTANIAELIDIA ([id number]) 1990 F Date Time Provider Department 04/14/20 1:30 PM YULI PULLIAM GMIGFV During your visit today, we recorded the following information about you: Blood pressure Weight Height Last Period 122/62 56.2 kg 1.6 m 04/05/20 Yuli Pulliam MD 04/14/2020 2:04 PM Signed Elidia Lema is a 30 year old female who presents for a follow up for endometriosis. HPI: 30yo with hx of endometriosis and CPP Pt travels from [place] and receives primary starchmaker care with her local provider. Underwent RA-lsc excision fo endo in Sep Has been on Lupron post-op (monthly injections) Last injection end of Jan. Had irreg bleeding while on Lupron. Had first period in Mar - heavy bleeding (states normal for her) Some pain with menses - but improved from pre-op. States period was manageable. Desires and is TTC Has been tracking menses and ovulation with OPKs and ankit. Past month + ovulation days immediately following menses. She expresses concern regarding ovulation timing, and expediting given severity of pain off suppression. PAST MEDICAL HISTORY Diagnosis Date - Endometriosis PAST SURGICAL HISTORY Procedure Laterality Date - PAST SURGICAL HISTORY OF 09/2019 ruptured pelvic cysts - PAST SURGICAL HISTORY OF 02/2019 ruptured pelvic cyst - PAST SURGICAL HISTORY OF ~2003, ~2014, 10/2018 pelvic surgery - removal of endometrosis - PAST SURGICAL HISTORY OF Bilateral 2017 breast implants No family history on file. Social History Tobacco Use - Smoking status: Never Smoker - Smokeless tobacco: Never Used Substance Use Topics - Alcohol use: Yes Comment: Social - 2 drinks per month - Drug use: Never Current Outpatient Medications Medication Sig - 25/iron fum/folic/dha (-1 ORAL) Take by mouth. - ibuprofen (MOTRIN) 600 mg tablet Take 1 tablet by mouth every 6 hours as needed for Pain. - acetaminophen (TYLENOL EXTRA STRENGTH) 500 mg tablet Take 2 tablets by mouth every 6 hours as needed for Pain. - ondansetron orally disintegrating (ZOFRAN ODT) 4 mg disintegrating tablet DIS 1 T ON THE TONGUE Q 6 H PRN - polyethylene glycol 3350 (MIRALAX, GLYCOLAX) 17 gram/dose powder DISSOLVE 1 CAPFUL (17 GRAMS) IN 4 TO 8 OUNCES OF LIQUID AND DRINK SOLUTION ONCE DAILY NEEDED FOR CONSTIPATION - docusate sodium (COLACE) 100 mg capsule Take 1 capsule by mouth twice daily. - traMADol 200 mg 24 hr tablet TK 1 T PO QD No current facility-administered medications for this visit. Allergies As of Date: 04/14/2020 Allergen Noted Reaction PENICILLINS 08/23/2019 Anaphylaxis SULFA (SULFONAMIDE ANTIBIOTICS) 08/23/2019 Hives Fully Assessed 04/14/2020 I have reviewed, confirmed, and edited as needed the patient's HPI, history and review of systems. Yuli Pulliam MD EXAM: BP 122/62 Ht 5' 3 (1.60m) Wt 124 lb (56.2kg) LMP 04/05/2020 BMI 21.97 kg/(m2). GENERAL: pleasant, female in no apparent distress HEENT: Normocephalic, atraumatic CHEST: Normal inspiratory effort PELVIC: deferred NEURO: alert and oriented x3,exam grossly non-focal EXTREMITIES: normal ASSESSMENT AND PLAN: Encounter Diagnosis ICD-10-CM 1. Endometriosis N80.9 CONSULT TO INFERTILITY CLINIC 2. Chronic pelvic pain in female R10.2 CONSULT TO INFERTILITY CLINIC G89.29 - Endometriosis - stable. Discontinued Lupron due to desire to conceive. - Discussed intra-op findings including dye spill with chromopertubation - Preconception counseling. Encouraged to continue PNV - ENRICO referral for further eval/management in context of severe endometriosis. I spent a total of 30 minutes on the date of the service which included preparing to see the patient, reiv-no-egnj patient care, completing clinical documentation and counseling and educating the patient/family/caregiv er Medical Decision Making Yuli Pulliam MD Referring Provider: SELF [200] Allergies As of Date: 04/14/2020 Noted Allergy Reaction PENICILLINS 08/23/2019 10 - Anaphylaxis SULFA (SULFONAMIDE ANTIBIOTICS) 08/23/2019 4 - Hives Date Reviewed: 04/14/2020 Reviewed by: Sandhya (Rn) WILL Adrian - Fully Assessed Reason for Visit: Established Patient [175] Primary Visit Diagnosis:Endometriosi s [N80.9] Other Visit Diagnosis:Chronic pelvic pain in female [R10.2, G89.29] Order(s):CONSULT TO INFERTILITY CLINIC [[id number]] Order #: [id number]: 1 FUTURE Prescriptions as of 04/14/2020 Sig: -1 ORAL Take by mouth. IBUPROFEN 600 MG TABLET Take 1 tablet by mouth every * ACETAMINOPHEN 500 MG TABLET Take 2 tablets by mouth every* ONDANSETRON 4 MG DISINTEGRATI* DIS 1 T ON THE TONGUE Q 6 H P* DOCUSATE SODIUM 100 MG CAPSULE Take 1 capsule by mouth twice* Problem List As Of Date 04/14/2020 Noted Resolved Endometriosis [N80.9] Medications Discontinued During This Encounter Pr (more content not included)... Normal [facility] BMPon 03-08-2019 Anion gap [Moles/Vol] 12 mmol/L 10 - 20 mmol/L Calcium [Mass/Vol] 8.9 mg/dL 8.4 - 10. 2 mg/dL Chloride [Moles/Vol] 104 mmol/L 98 - 108 mmol/L Creatinine [Mass/Vol] 0.85 mg/dL 0.4 - 1.1 mg/dL GFR/1.73 sq M predicted among non-blacks MDRD (S/P/Bld) [Vol rate/Area] The eGFR should be used for monitoring renal function only and not for medication dosing. GFR/1.73 sq M.predicted CKD-EPI (S/P/Bld) [Vol rate/Area] 93 >=60 mL/min/1.73 m2 Glucose [Mass/Vol] 136 mg/dL High 65 - 99 mg/dL [facility] HCO3 [Moles/Vol] 25 mmol/L 21 - 32 mmol/L [facility] Potassium [Moles/Vol] 3.6 mmol/L 3.5 - 5.1 mmol/L Sodium [Moles/Vol] 137 mmol/L 135 - 145 mmol/L Urea nitrogen [Mass/Vol] 11 mg/dL 8 - 25 mg/dL Urea nitrogen/Creatinine [Mass ratio] 12.9 mg/mg CBC WITH AUTO DIFFERENTIALon 03-08-2019 Basophils (Bld) [#/Vol] 0.03 10*3/uL Basophils/100 WBC (Bld) 0.2 % Eosinophils (Bld) [#/Vol] 0.03 10*3/uL Eosinophils/100 WBC (Bld) 0.2 % Erythrocyte distribution width (RBC) [Entitic vol] 14.0 % 11.6 - 14.8 % Hematocrit (Bld) [Volume fraction] 40.3 % 36 - 46 % Hemoglobin (Bld) [Mass/Vol] 13.3 g/dL 12 - 16 g/dL Immature granulocytes (Bld) [#/Vol] 0.05 10*3/uL Immature granulocytes/100 WBC (Bld) 0.40 % Comment on above: The IG parameter is the percentage of metamyelocytes, myelocytes, and promyelocytes. Lymphocytes (Bld) [#/Vol] 1.64 10*3/uL Lymphocytes/100 WBC (Bld) 12.6 % MCH (RBC) [Entitic mass] 29.0 pg 26 - 34 pg MCHC (RBC) [Mass/Vol] 33.0 g/dL 31 - 37 g/dL MCV (RBC) [Entitic vol] 87.8 fL 80 - 100 fL Monocytes (Bld) [#/Vol] 0.73 10*3/uL Monocytes/100 WBC (Bld) 5.6 % Neutrophils (Bld) [#/Vol] 10.50 10*3/uL High Neutrophils/100 WBC (Bld) 81.0 % Nucleated RBC (Bld) [#/Vol] 0.00 10*3/uL Nucleated RBC/100 WBC (Bld) [Ratio] 0.0 % Platelet mean volume (Bld) [Entitic vol] 10.2 fL 9 - 15.5 fL Platelets (Bld) [#/Vol] 235 10*3/uL RBC (Bld) [#/Vol] 4.59 10*6/uL [facility] WBC (Bld) [#/Vol] 12.98 10*3/uL [facility] Otheron 03-08-2019 Interpretation and review of laboratory results Abnormal URINALYSISon 03-08-2019 Bacteria Auto Ql (U) Rare Abnormal None Seen /hpf Bilirubin Ql (U) Negative Negative [facility] Clarity Refractometry automated (U) Hazy Abnormal Clear Color (U) Yellow Colorless, Yellow Crystals.amorphous Computer assisted (U) [#/Area] Many Abnormal None Seen, Rare /hpf Epithelial cells.squamous Auto (Urine sed) [#/Area] 1 Glucose Auto test strip (U) [Mass/Vol] Negative Negative mg/dL Hemoglobin Auto test strip Ql (U) Small Abnormal Negative Interpretation and review of laboratory results Abnormal Ketones (U) [Mass/Vol] >=80 Abnormal Negative mg/dL Leukocyte esterase Auto test strip Ql (U) Negative Negative Nitrite Auto test strip Ql (U) Negative Negative pH (U) 6.0 [pH] Protein (U) [Mass/Vol] Negative Negative mg/dL RBC Auto (Urine sed) [#/Area] 5 High Specific gravity (U) [Rel density] 1.027 High Urobilinogen (U) [Mass/Vol] <2.0 <2.0 mg/dL Microscopic examination is performed on all urinalysis samples and only positive findings are reported. The test for blood on the chemical analytic portion of urinalysis may also be positive due to hemoglobinuria and myoglobinuria and if red blood cells are present they are quantified by microscopic examination. [facility] PELVIC TRANSVAGINAL WITH COLOR FLOWon 03-08-2019 Appearance (U) Enlarged globular appearance of the left ovary measuring 9.0 x 4.8 x 5.1 cm with an associated 3.7 x 2.8 x 3.7 cm cystic structure. The aldridge-scale findings are suspicious for left ovarian torsion. There is arterial and venous blood flow within the anterior periphery of the left ovary, however, this may be associated with blood flow within paraovarian varices or the twisted suspensory ligament as there is no blood flow on color Doppler imaging centrally within the left ovary. Critical results were called by Dr. Buck Paul to Dr. JEAN-CLAUDE GANNON on 03/08/2019 at 12:58. [employer] Workstation ID: [id number] [facility] PELVIC TRANSVAGINAL WITH COLOR FLOW EXAMINATION: US PELVIC TRANSVAGINAL WITH COLOR FLOW HISTORY: ORDERING SYSTEM PROVIDED HISTORY: Concern about ovarian torsion, ovarian cyst or other intrapelvic processes, TECHNOLOGIST PROVIDED HISTORY: Illness/Other Reason for exam: Pelvic pain since this AM-hx endometriosis-pelvic surgery for cysts Cancer History: unknown Surgery, RadiationHistory: pelvic-endometriosis Encounter Type: Ongoing Additional signs and symptoms: no ORDERING SYSTEM PROVIDED DIAGNOSIS CODES: COMPARISON: None. TECHNIQUE: Multiple aldridge-scale sonographic images of the pelvic viscera were obtained. Color and spectral Doppler imaging was performed for dedicated evaluation of the ovarian vasculature. FINDINGS: The uterus measures 6.9 x 4.1 x 4.6 cm. Uterine myometrium is homogeneous. Endometrium measures 8 mm in thickness. The right ovary measures 4.1 x 3.8 x 3.4 cm. There is a 3.2 x 1.7 x 2.7 cm right ovarian follicle. Normal arterial and venous blood flow to the right ovary and color and spectral Doppler imaging. Enlarge relatively homogeneously hyperechoic left ovary measuring 9.0 x 4.8 x 5.1 cm with an associated 3.7 x 2.8 x 3.7 cm cystic structure with beaking towards the left ovary. There is arterial and venous blood flow at the periphery of the left ovary, however, this may be within the feeding vessels or surrounding varices as there is no significant color Doppler flow more centrally within the left ovary. No free fluid in the pelvis. IMPRESSION: Enlarged globular appearance of the left ovary measuring 9.0 x 4.8 x 5.1 cm with an associated 3.7 x 2.8 x 3.7 cm cystic structure. The aldridge-scale findings are suspicious for left ovarian torsion. There is arterial and venous blood flow within the anterior periphery of the left ovary, however, this may be associated with blood flow within paraovarian varices or the twisted suspensory ligament as there is no blood flow on color Doppler imaging centrally within the left ovary. Critical results were called by Dr. Buck Paul to Dr. JEAN-CLAUDE GANNON on 03/08/2019 at 12:58. [employer] Workstation ID: [id number] Dictated by: BUCK PAUL on TueMar 08, 2019 12:58:47 PM EST Transcribed by: PATT OROZCO on TueMar 08, 2019 1:22:21 PM EST Finalized by: BUCK PAUL on TueMar 08, 2019 1:35:11 PM EST Normal [facility] Comment on above: Order Comment: Injur y/Trauma or Illness?:Illness/Other How long have you had these symptoms (acute/chronic)?:Acute Reason for exam?:Pelvic pain since this AM-hx endometiosis - pelvic surgery for cysts History of cancer?:unknown Surgeries, chemotherapy, or radiation?:pelvic-endometriosis Type of Exam?:Ongoing Additional signs and symptoms?:no Interface, Rad In Willam ji Speechq - 03/08/2019 1:37 PM EST EXAMINATION: US PELVIC TRANSVAGINAL WITH COLOR FLOW HISTORY: ORDERING SYSTEM PROVIDED HISTORY: Concern about ovarian torsion, ovarian cyst or other intrapelvic processes, TECHNOLOGIST PROVIDED HISTORY: Illness/Other Reason for exam: Pelvic pain since this AM-hx endometriosis-pelvic surgery for cysts Cancer History: unknown Surgery, RadiationHistory: pelvic-endometriosis Encounter Type: Ongoing Additional signs and symptoms: no ORDERING SYSTEM PROVIDED DIAGNOSIS CODES: COMPARISON: None. TECHNIQUE: Multiple aldridge-scale sonographic images of the pelvic viscera were obtained. Color and spectral Doppler imaging was performed for dedicated evaluation of the ovarian vasculature. FINDINGS: The uterus measures 6.9 x 4.1 x 4.6 cm. Uterine myometrium is homogeneous. Endometrium measures 8 mm in thickness. The right ovary measures 4.1 x 3.8 x 3.4 cm. There is a 3.2 x 1.7 x 2.7 cm right ovarian follicle. Normal arterial and venous blood flow to the right ovary and color and spectral Doppler imaging. Enlarge relatively homogeneously hyperechoic left ovary measuring 9.0 x 4.8 x 5.1 cm with an associated 3.7 x 2.8 x 3.7 cm cystic structure with beaking towards the left ovary. There is arterial and venous blood flow at the periphery of the left ovary, however, this may be within the feeding vessels or surrounding varices as there is no significant color Doppler flow more centrally within the left ovary. No free fluid in the pelvis. IMPRESSION: Enlarged globular appearance of the left ovary measuring 9.0 x 4.8 x 5.1 cm with an associated 3.7 x 2.8 x 3.7 cm cystic structure. The aldridge-scale findings are suspicious for left ovarian torsion. There is arterial and venous blood flow within the anterior periphery of the left ovary, however, this may be associated with blood flow within paraovarian varices or the twisted suspensory ligament as there is no blood flow on color Doppler imaging centrally within the left ovary. Critical results were called by Dr. Buck Paul to Dr. JEAN-CLAUDE GANNON on 03/08/2019 at 12:58. [employer] Workstation ID: [id number] EXAMINATION: US PELV IC TRANSVAGINAL WITH COLOR FLOW HISTORY: ORDERING SYSTEM PROVIDED HISTORY: Concern about ovarian torsion, ovarian cyst or other intrapelvic processes, TECHNOLOGIST PROVIDED HISTORY: Illness/Other Reason for exam: Pelvic pain since this AM-hx endometriosis-pelvic surgery for cysts Cancer History: unknown Surgery, RadiationHistory: pelvic-endometriosis Encounter Type: Ongoing Additional signs and symptoms: no ORDERING SYSTEM PROVIDED DIAGNOSIS CODES: COMPARISON: None. TECHNIQUE: Multiple aldridge-scale sonographic images of the pelvic viscera were obtained. Color and spectral Doppler imaging was performed for dedicated evaluation of the ovarian vasculature. FINDINGS: The uterus measures 6.9 x 4.1 x 4.6 cm. Uterine myometrium is homogeneous. Endometrium measures 8 mm in thickness. The right ovary measures 4.1 x 3.8 x 3.4 cm. There is a 3.2 x 1.7 x 2.7 cm right ovarian follicle. Normal arterial and venous blood flow to the right ovary and color and spectral Doppler imaging. Enlarge relatively homogeneously hyperechoic left ovary measuring 9.0 x 4.8 x 5.1 cm with an associated 3.7 x 2.8 x 3.7 cm cystic structure with beaking towards the left ovary. There is arterial and venous blood flow at the periphery of the left ovary, however, this may be within the feeding vessels or surrounding varices as there is no significant color Doppler flow more centrally within the left ovary. No free fluid in the pelvis. Urine Pregnancyon 03-08-2019 HCG ( test) Ql (U) Negative Negative Interpretation and review of laboratory results Normal Basic Metabolic Panelon Calcium mass conc 9.2 mg/dL Normal 8.2-10.2 [facility] Comment on above: Performed By: #### D DIMER, CBC, BMP, CK, CKMB, TROP #### [facility] [address] [id number] [place] Chloride molar conc 106 mmol/L Normal 95-114 [facility] Comment on above: Performed By: #### D DIMER, CBC, BMP, CK, CKMB, TROP #### [facility] [address] [place] [address] [place] CO2 molar conc 23.4 mmol/L Normal 22.0-30.0 [facility] Comment on above: Performed By: #### D DIMER, CBC, BMP, CK, CKMB, TROP #### [facility] [address] [place] [address] [place] Creatinine mass conc 0.70 mg/dL Normal 0.44-1.03 [facility] Comment on above: Performed By: #### D DIMER, CBC, BMP, CK, CKMB, TROP #### [facility] [address] [id number] [place] Creatinine mass conc 98.5083165945 mg/dL Normal [facility] Comment on above: Result Comment: PERF ORMED BY: [place] [address] PATHOLOGIST [employer] SHERYL NOLAND M.D. Performed By: #### D DIMER, CBC, BMP, CK, CKMB, TROP #### [address] Estimated GFR ( Margaret > 60 Normal [facility] Comment on above: Result Comment: GFR estimated reference range: According to KDOQI guidelines, <60 ml/min/1.73m2 is sufficient to diagnose a patient with chronic kidney disease. Performed By: #### D DIMER, CBC, BMP, CK, CKMB, TROP #### [address] Estimated GFR (Non- Am > 60 Normal [facility] Comment on above: Performed By: #### D DIMER, CBC, BMP, CK, CKMB, TROP #### [address] Glucose mass conc 91 mg/dL Normal 70-100 [facility] Comment on above: Result Comment: [place] Glucose Reference Range is dependent on time and content of last meal. Glucose of more than 200 mg/dL in a nonstressed, ambulatory subject supports the diagnosis of Diabetes Mellitus. ADA recommended reference range Performed By: #### D DIMER, CBC, BMP, CK, CKMB, TROP #### [address] Potassium molar conc 3.4 mmol/L Low 3.5-5.1 [facility] Comment on above: Performed By: #### D DIMER, CBC, BMP, CK, CKMB, TROP #### [address] Sodium molar conc 142 mmol/L Normal 136-146 [facility] Comment on above: Performed By: #### D DIMER, CBC, BMP, CK, CKMB, TROP #### [address] Urea nitrogen mass conc 3 mg/dL Low 9-23 [facility] Comment on above: Performed By: #### D DIMER, CBC, BMP, CK, CKMB, TROP #### [address] Complete Blood Count Auto Di ffon 06-14-2018 Basophils #/vol (Bld) 0.0 10*3/uL Normal 0.0-0.2 [facility] Comment on above: Result Comment: PERF ORMED BY: [place] [address] PATHOLOGIST [employer] SHERYL NOLAND M.D. Performed By: #### D DIMER, CBC, BMP, CK, CKMB, TROP #### [address] Basophils/100 WBC (Bld) 0.2 % Normal . [facility] Comment on above: Performed By: #### D DIMER, CBC, BMP, CK, CKMB, TROP #### [address] Eosinophils #/vol (Bld) 0.1 10*3/uL Normal 0.0-0.45 [facility] Comment on above: Performed By: #### D DIMER, CBC, BMP, CK, CKMB, TROP #### [address] Eosinophils/100 WBC (Bld) 0.8 % Normal . [facility] Comment on above: Performed By: #### D DIMER, CBC, BMP, CK, CKMB, TROP #### [address] Erythrocyte distribution width Ratio (RBC) 14.4 % Normal 11.9-15.3 [facility] Comment on above: Performed By: #### D DIMER, CBC, BMP, CK, CKMB, TROP #### [address] Hematocrit Volume Fraction (Bld) 39.3 % Normal 34.0-46.4 [facility] Comment on above: Performed By: #### D DIMER, CBC, BMP, CK, CKMB, TROP #### [address] Hemoglobin mass conc (Bld) 13.3 g/dL Normal 11.8-15.4 [facility] Comment on above: Performed By: #### D DIMER, CBC, BMP, CK, CKMB, TROP #### [address] Lymphocytes #/vol (Bld) 2.0 10*3/uL Normal 1.00-4.8 [facility] Comment on above: Performed By: #### D DIMER, CBC, BMP, CK, CKMB, TROP #### [address] Lymphocytes/100 WBC (Bld) 22.8 % Normal . [facility] Comment on above: Performed By: #### D DIMER, CBC, BMP, CK, CKMB, TROP #### [address] MCH Entitic mass (RBC) 33.7 g/dL Normal 32.0-35.0 [facility] Comment on above: Performed By: #### D DIMER, CBC, BMP, CK, CKMB, TROP #### [address] [facility] Entitic mass (RBC) 29.6 pg Normal 24.7-34.3 [facility] Comment on above: Performed By: #### D DIMER, CBC, BMP, CK, CKMB, TROP #### [address] MCV Entitic volume (RBC) 87.7 fL Normal 80-100 [facility] Comment on above: Performed By: #### D DIMER, CBC, BMP, CK, CKMB, TROP #### [address] Monocytes #/vol (Bld) 0.6 10*3/uL Normal 0.0-0.8 [facility] Comment on above: Performed By: #### D DIMER, CBC, BMP, CK, CKMB, TROP #### [address] Monocytes/100 WBC (Bld) 6.6 % Normal . [facility] Comment on above: Performed By: #### D DIMER, CBC, BMP, CK, CKMB, TROP #### [address] Neutrophils #/vol (Bld) 6.2 10*3/uL Normal 1.8-7.7 [facility] Comment on above: Performed By: #### D DIMER, CBC, BMP, CK, CKMB, TROP #### [address] Neutrophils/100 WBC (Bld) 69.6 % Normal . [facility] Comment on above: Performed By: #### D DIMER, CBC, BMP, CK, CKMB, TROP #### [address] Nucleated RBC/100 WBC Ratio (Bld) 0.1 % Normal 0-0.5 [facility] Comment on above: Performed By: #### D DIMER, CBC, BMP, CK, CKMB, TROP #### [address] Platelet mean volume Entitic volume (Bld) 8.6 fL Normal 6.3-10.7 [facility] Comment on above: Performed By: #### D DIMER, CBC, BMP, CK, CKMB, TROP #### [address] Platelets #/vol (Bld) 225 10*3/uL Normal 150-450 [facility] Comment on above: Performed By: #### D DIMER, CBC, BMP, CK, CKMB, TROP #### [address] RBC #/vol (Bld) 4.49 10*6/uL Normal 3.60-5.00 [facility] Comment on above: Performed By: #### D DIMER, CBC, BMP, CK, CKMB, TROP #### [address] WBC #/vol (Bld) 8.9 10*3/uL Normal 4.5-11.0 [facility] Comment on above: Performed By: #### D DIMER, CBC, BMP, CK, CKMB, TROP #### [facility] [address] Creatine Kinaseon 06-14-2018 CK enzyme act/vol 52 U/L Normal 22-269 [facility] Comment on above: Performed By: #### D DIMER, CBC, BMP, CK, CKMB, TROP #### [facility] [address] Creatinine Kinase MBon 06-14 CK.MB mass conc 1.5 ng/mL Normal 0.00-2.50 [facility] Comment on above: Performed By: #### D DIMER, CBC, BMP, CK, CKMB, TROP #### [address] CK.MB mass conc 0.8 ng/mL Normal 0.6-6.3 [facility] Comment on above: Performed By: #### D DIMER, CBC, BMP, CK, CKMB, TROP #### [address] D-Dimer High Sensitivityon 0 06-14-2018 D-Dimer High Sensitivity < 200 Normal 0-243 [facility] Comment on above: Result Comment: The reference range for D-dimer is <243 ng/mL D-dimer units. D-dimer results must be used in conjunction with a clinical pretest probability (PTP) assessment model for deep vein thrombosis (DVT) and pulmonary embolism (PE). Results <230 ng/mL d-dimer units can be used as a negative predictor in patients with low or moderate probability for DVT/PE. Results above the exclusion threshold of 230 ng/ml D-dimer units for DVT/PE may indicate the need for further diagnostic testing. D-Dimer can be increased in hospitalized patients due to co-morbid conditions. PERFORMED BY: [place] [address] PATHOLOGIST [employer] SHERYL NOLAND M.D. Performed By: #### D DIMER, CBC, BMP, CK, CKMB, TROP #### [facility] [address] [place] [address] ECG 12 lead ECGon 06-14-2018 ECG 12 lead ECG [facility] [address] Electrocardiograph Report Signed Patient: Elidia Hill MR#: [id number] 76 : 1990 Acct:[id number] Age/Sex: 28 / F ADM Date: 06/14/18 Loc: ER Room: Type: [facility] ER Attending Dr: Ordering Provider: Siri Pinedo MD Date of Service: 06/14/18 ECG/ECG 12 lead ECG: Chest Pain Copies to: Test Reason : Blood Pressure : / mmHG Vent. Rate : 106 BPM Atrial Rate : 106 BPM P-R Int : 136 ms QRS Dur : 080 ms QT Int : 362 ms P-R-T Axes : 084 078 060 degrees QTc Int : 480 ms Sinus tachycardia Biatrial enlargement Abnormal ECG No previous ECGs available Confirmed by SIRI PINEDO MD ([id number]) on 06/14/2018 10:43:05 PM Referred By: Electronically Signed By:SIRI PINEDO MD Transcribed By: MUS Dictated By: Siri Pinedo MD 06/14/181919 Signed By: 06/14/18 2243 Normal [facility] Troponin I(TnI)on 06-14-2018 Troponin I.cardiac mass conc ng/mL Normal 0-0.02 [facility] Comment on above: Result Comment: [place] Cut off value > or equal to 0.03 ng/mL in conjunction with clinical conditions of myocardial infarction. (www.escardio.org/guidelines) PERFORMED BY: [place] [address] PATHOLOGIST [employer] SHERYL NOLAND M.D. Performed By: #### D DIMER, CBC, BMP, CK, CKMB, TROP #### [facility] [address] [place] [address] [place] XR chest 2V*on 06-14-2018 XR chest 2V* [facility] [place] [address] XRay Report Signed Patient: Elidia Hill MR#: [id number] [birth year] : 1990 Acct:[id number] Age/Sex: 28 / F ADM Date: 06/14/18 Loc: ER Room: Type: [facility] ER Attending Dr: Ordering Provider: Siri Pinedo MD Date of Service: 06/14/18 XR/XR chest 2V*: Chest Pain Copies to: Siri Pinedo MD 2 view chest COMPARISON: 05/18/2018 HISTORY: Chest pain with radiation into the left shoulder. Started yesterday. Cardiac and mediastinal silhouettes are stable. No vascular congestion. No acute lung process, pleural effusion or pneumothorax is seen. Pectus excavatum deformity identified. XR/XR chest 2V* IMPRESSION: No acute cardiopulmonary disease. Impression dictated by: Riki Mack M.D.06/14/2018 8:08 PM Dictation Location: [id number] Transcribed By: [facility] 06/14/182007 Dictated By: Riki Mack DO 06/14/182001 Signed By: 06/14/182007 [facility] XR chest 2V*on 05-18-2018 XR chest 2V* [facility] [place] [address] [place], [place] [id number] XRay Report Signed Patient: Elidia Hill MR#: [id number] : 1990 Acct:[id number] Age/Sex: 28 / F ADM Date: 05/18/18 Loc: XDUCLY Room: Type: [facility] CLI Attending Dr: Ranjana SCHULTZ Ordering Provider: Ranjana Durant Date of Service: 05/18/18 XR/XR chest 2V*: Painful cough Copies to: Ranjana Durant Chest 05/18/2018. CLINICAL DATA: Cough and shortness of breath. FINDINGS: 2 views of the chest were obtained and are compared with a prior study 10/20/2011. The cardiac silhouette is normal in size. The pulmonary vasculature is within normal limits. No pulmonary consolidation or collapse is identified. No pneumothorax or pleural effusion is seen. XR/XR chest 2V* IMPRESSION: No acute cardiopulmonary disease. Impression dictated by: Buck Miranda Jr., M.D.05/18/2018 5:42 PM Dictation Location: [facility] Transcribed By: [facility] 05/18/18 1742 Dictated By: Buck Miranda MD 05/18/18 1738 Signed By: 05/18/18 174 [facility] Social History Date Type Detail Facility Start: 03-08-2019 Tobacco smoking status NHIS Never sm oker Start: 03-08-2019 Alcohol intake Lifetime non-d watson (finding) Start: 03-08-2019 History SDOH Alcohol Frequency 1 Sex Assigned At Not on file [facility] Vital Signs Date Time Vital Sign Value Performing Clinician Faci lity 03-08-2019 21:22-0500 Body Temperature 98.49 [degF] [facility] 03-08-2019 21:22-0500 BP Diastolic 80 mm[Hg] [facility] 03-08-2019 21:22-0500 BP Systolic 122 mm[Hg] [facility] 03-08-2019 21:22-0500 Pulse (Heart Rate) 96 /min [facility] 03-08-2019 21:22-0500 Pulse Oximetry 95 % [facility] 03-08-2019 21:22-0500 Respiratory Rate 14 /min [facility] 03-08-2019 16:27-0500 BMI (Body Mass Index) 23.9 kg/m2 [facility] 03-08-2019 16:27-0500 Body weight 61.2 kg [facility] 03-08-2019 16:27-0500 Height 160 cm [facility] Progress note 04-14-2020 Note Date & Type Note Facility 04-14-2020 Note HNO ID: [id number] Author: Yuli Pulliam Service: ? Author Type: Physician Type: Progress Notes Filed: 04/14/2020 2:04 PM Note Text: Elidia Lema is a 30 year old female who presents for a follow up for endometriosis. HPI: 30yo with hx of endometriosis and CPP Pt travels from [place] and receives primary starchmaker care with her local provider. Underwent RA-lsc excision fo endo in Sep Has been on Lupron post-op (monthly injections) Last injection end of Jan. Had irreg bleeding while on Lupron. Had first period in Mar - heavy bleeding (states normal for her) Some pain with menses - but improved from pre-op. States period was manageable. Desires and is TTC Has been tracking menses and ovulation with OPKs and ankit. Past month + ovulation days immediately following menses. She expresses concern regarding ovulation timing, and expediting given severity of pain off suppression. PAST MEDICAL HISTORY Diagnosis Date - Endometriosis PAST SURGICAL HISTORY Procedure Laterality Date - PAST SURGICAL HISTORY OF 09/2019 ruptured pelvic cysts - PAST SURGICAL HISTORY OF 02/2019 ruptured pelvic cyst - PAST SURGICAL HISTORY OF ~2003, ~2014, 10/2018 pelvic surgery - removal of endometrosis - PAST SURGICAL HISTORY OF Bilateral 2017 breast implants No family history on file. Social History Tobacco Use - Smoking status: Never Smoker - Smokeless tobacco: Never Used Substance Use Topics - Alcohol use: Yes Comment: Social - 2 drinks per month - Drug use: Never Current Outpatient Medications Medication Sig - 25/iron fum/folic/dha (-1 ORAL) Take by mouth. - ibuprofen (MOTRIN) 600 mg tablet Take 1 tablet by mouth every 6 hours as needed for Pain. - acetaminophen (TYLENOL EXTRA STRENGTH) 500 mg tablet Take 2 tablets by mouth every 6 hours as needed for Pain. - ondansetron orally disintegrating (ZOFRAN ODT) 4 mg disintegrating tablet DIS 1 T ON THE TONGUE Q 6 H PRN - polyethylene glycol 3350 (MIRALAX, GLYCOLAX) 17 gram/dose powder DISSOLVE 1 CAPFUL (17 GRAMS) IN 4 TO 8 OUNCES OF LIQUID AND DRINK SOLUTION ONCE DAILY NEEDED FOR CONSTIPATION - docusate sodium (COLACE) 100 mg capsule Take 1 capsule by mouth twice daily. - traMADol 200 mg 24 hr tablet TK 1 T PO QD No current facility-administered medications for this visit. Allergies As of Date: 04/14/2020 Allergen Noted Reaction PENICILLINS 08/23/2019 Anaphylaxis SULFA (SULFONAMIDE ANTIBIOTICS) 08/23/2019 Hives Fully Assessed 04/14/2020 I have reviewed, confirmed, and edited as needed the patient's HPI, history and review of systems. Yuli Pulliam MD EXAM: BP 122/62 Ht 5' 3 (1.60m) Wt 124 lb (56.2kg) LMP 04/05/2020 BMI 21.97 kg/(m2). GENERAL: pleasant, female in no apparent distress HEENT: Normocephalic, atraumatic CHEST: Normal inspiratory effort PELVIC: deferred NEURO: alert and oriented x3,exam grossly non-focal EXTREMITIES: normal ASSESSMENT AND PLAN: Encounter Diagnosis ICD-10-CM 1. Endometriosis N80.9 CONSULT TO INFERTILITY CLINIC 2. Chronic pelvic pain in female R10.2 CONSULT TO INFERTILITY CLINIC G89.29 - Endometriosis - stable. Discontinued Lupron due to desire to conceive. - Discussed intra-op findings including dye spill with chromopertubation - Preconception counseling. Encouraged to continue PNV - ENRICO referral for further eval/management in context of severe endometriosis. I spent a total of 30 minutes on the date of the service which included preparing to see the patient, [id number] patient care, completing clinical documentation and counseling and educating the patient/family/caregiver Medical Decision Making Yuli Pulliam MD [facility] Summary Purpose Family History No Family History Records FoundNo Family History Records FoundNo Family History Records FoundNo Family History Records FoundNo Family History Records FoundNo Family History Records Found Advance Directives No Advanced Directives Records FoundDocuments on File Type Date 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 PT able to eat and take pain medication without nausea/emesis. Pt voids without difficulty. Ambulates around room. Family at bedside to take pt home. * Pretty Walker RN - 03/08/2019 7:30 PM EST Return to room from PACU, up to bathroom, voids without difficulty. Assist to bed, repositions selffor comfort. VS and assessment obtained. documented in this encounter Assessments Diagnosis Torsion of left ovary and ovarian pedicle Left ovarian cyst Other and unspecified ovarian cyst Additional Source Comments INFORMATION SOURCE (unrecogn ized section and content) DATE CREATED AUTHOR 06/29/2018 [facility] DATE CREATED AUTHOR AUTHOR'S ORGANIZ ATION 03/15/2019 [facility] DATE CREATED AUTHOR AUTHOR'S ORGANIZ ATION 12/04/2020 [facility] DATE CREATED AUTHOR AUTHOR'S ORGANIZ ATION 04/01/2021 [facility] DATE CREATED AUTHOR AUTHOR'S ORGANIZ ATION 05/30/2022 [facility] DATE CREATED AUTHOR AUTHOR'S ORGANIZ ATION 07/05/2023 [facility] EPIC Reason for Visit (unrecogniz ed section and content) Reason Comments Pelvic Pain STARTED THIS AM Durga Brewster MD - 03/08/2019 5:26 PM Durga Angeles MD - 03/08/2019 5:23 PM EST H&P Notes (unrecognized sect ion and content) INTERVAL HISTORY AND PHYSICAL Patient Name: Elidia Hill Admit Date: MR #: [id number] : 1990 The H&P has been reviewed and the patient has been examined. I concur with the findings of the H&P. There are no significant changes. It is appropriate to proceed with the planned procedure. Durga Brewster MD 03/08/2019 5:26 PM Assessment/Plan: Assessment: 29yo with left ovarian torsion for laparoscopic left cystectomy/possible LSO. Plan: 1. Discussed the risk of surgery including loss of left ovary, and the risks of general anesthetic including NV, CVA, sudden or even reaction to anesthetic medications. The patient understands the risks, any and all questions were answered to the patient's satisfaction. 2. Discussed endometriosis diagnosis 3. Follow up: 1 week. Date of Surgery Update (To be completed by Attending Surgeon day of surgery.) There have been no significant clinical changes since the completion of the above H&P. Subjective Elidia Hill is a 29 y.o. female who presents for evaluation of LLQ pain. The pain is described as severe and is 10/10 in intensity. Onset was several hours ago. Symptoms have been gradually worsening since. Aggravating factors: movement. Alleviating factors: rest. Associated symptoms: cramping. The patient denies . The following portions of the patient's history were reviewed and updated as appropriate: allergies, current medications, past family history, past medical history, past social history, past surgical history and problem list. Review of Systems Pertinent items are noted in HPI. Objective BP 123/74 Pulse 97 Temp 98.3 F (36.8 C) Resp 16 Ht 5' 3 Wt 61.2 kg (134 lb 14.7 oz) LMP 03/08/2019 SpO2 100% BMI 23.90 kg/m General: alert, appears stated age and cooperative Skin: normal Eyes: conjunctivae/corneas clear. PERRL, EOM's intact. Fundi benign. Mouth: MMM no lesions Lymph Nodes: Cervical, supraclavicular, and axillary nodes normal. Lungs: clear to auscultation bilaterally Heart: regular rate and rhythm, S1, S2 normal, no murmur, click, rub or gallop Abdomen: soft, non-tender; bowel sounds normal; no masses, no organomegaly and tender and mildly distended CVA: absent Genitourinary: defer exam Extremities: extremities normal, atraumatic, no cyanosis or edema Neurologic: negative Psychiatric: normal mood, behavior, speech, dress, and thought processes documented in this encounter Taj Rojas RN - 03/08/2019 1:30 PM Yesi Thomas RN - 03/08/2019 12:00 PM Yesi Thomas RN - 03/08/2019 11:43 AM Jean-Claude Mckeon MD - 03/08/2019 10:53 AM EST ED Notes (unrecognized secti on and content) Called report to Patricia SOLIS OB ULTRASOUND STAFF NOTIFIED THAT THIS PT HAS BEEN MEDICATED TWICE FOR PAIN AND NAUSEA AND IS NOW ABLE TO HAVE ULTRASOUND COMPLETED - SHE AGREED TO OBTAIN PT BHAVANA PT VOMITED SMALL AMOUNT INTO EMESIS BAG - C/O CONTINUED PELVIC PAIN 08/16 - THAT MORPHINE JUST TOOK THE EDGE OFF - DR GANNON MADE AWARE - NEW ORDERS FOR MEDS RECEIVED ED PROVIDER NOTE [facility] EMERGENCY DEPARTMENT NAME: Elidia Hill AGE: 29 y.o. : 1990 VISIT DATE: 03/08/2019 CSN: [id number] PCP: Provider Not in System Chief Complaint Patient presents with Pelvic Pain STARTED THIS AM This is a 29-year-old who states she has a history of endometriosis and history of ovarian cyst brought into the emergency room from work via EMS for acute nontraumatic mid to lower abdominal pain which started this morning and seems to have progressively gotten worse. The majority of the pain is now below the umbilicus where patient is holding her hand. Patient states she has been nauseous and vomited early this morning. She states she is currently in her. Patient denies history of ovarian torsion. Patient denies history of sexually transmitted disease. She denies dysuria flank or lower back pain pain Past Medical History: Diagnosis Date Endometriosis Past Surgical History: Procedure Laterality Date LAPROSCOPE 2019 History reviewed. No pertinent family history. Social History Socioeconomic History Marital status: Single Spouse name: Not on file Number of children: Not on file Years of education: Not on file Highest education level: Not on file Occupational History Not on file Social Needs Financial resource strain: Not on file Food insecurity Worry: Not on file Inability: Not on file Transportation needs Medical: Not on file Non-medical: Not on file Tobacco Use Smoking status: Never Smoker Smokeless tobacco: Never Used Substance and Sexual Activity Alcohol use: Never Frequency: Never Drug use: Never Sexual activity: Not on file Lifestyle Physical activity Days per week: Not on file Minutes per session: Not on file Stress: Not on file Relationships Social connections Talks on phone: Not on file Gets together: Not on file Attends jainism service: Not on file Active member of club or organization: Not on file Attends meetings of clubs or organizations: Not on file Relationship status: Not on file Other Topics Concern Not on file Social History Narrative Not on file No current outpatient medications on file prior to encounter. Allergies Allergen Reactions Codeine GI Intolerance Penicillins Sulfa (Sulfonamide Antibiotics) Review of Systems Constitutional: Negative for chills and fever. Gastrointestinal: Positive for abdominal pain, nausea and vomiting. Negative for diarrhea. Genitourinary: Positive for vaginal bleeding. All other systems reviewed and are negative. Patient Vitals for the past 24 hrs: BP Temp Temp src Pulse Resp SpO2 Height Weight 03/08/19 1147 120/81 65 12 100 % 03/08/19 1103 (!) 142/93 97.5 F (36.4 C) Oral 63 14 100 % 03/08/19 1058 5' 3 61.2 kg (135 lb) Physical Exam Vitals signs and nursing note reviewed. Constitutional: General: She is not in acute distress. Appearance: Normal appearance. She is not ill-appearing, toxic-appearing or diaphoretic. HENT: Head: Normocephalic and atraumatic. Neck: Musculoskeletal: Normal range of motion and neck supple. No neck rigidity or muscular tenderness. Cardiovascular: Rate and Rhythm: Normal rate and regular rhythm. Pulses: Normal pulses. Heart sounds: Normal heart sounds. No murmur. No friction rub. Pulmonary: Effort: Pulmonary effort is normal. No respiratory distress. Breath sounds: Normal breath sounds. No stridor. No wheezing, rhonchi or rales. Chest: Chest wall: No tenderness. Abdominal: General: Abdomen is flat. Palpations: Abdomen is soft. Tenderness: There is no right CVA tenderness or left CVA tenderness. Hernia: No hernia is present. Comments: Decreased bowel sounds on auscultation. Significant mid to lower abdominal tenderness on the slightest touch of patient's abdominal area with patient certainly crying Musculoskeletal: Normal range of motion. General: No swelling or deformity. Neurological: General: No focal deficit present. Laboratory & Radiographic Imaging (if done): Results for orders placed or performed during the hospital encounter of 03/08/19 BMP Result Value Ref Range Sodium 137 135 - 145 mmol/L Potassium 3.6 3.5 - 5.1 mmol/L Chloride 104 98 - 108 mmol/L Bicarbonate 25 21 - 32 mmol/L Anion Gap 12 10 - 20 mmol/L Glucose 136 (H) 65 - 99 mg/dL BUN 11 8 - 25 mg/dL Creatinine 0.85 0.40 - 1.10 mg/dL eGFR 93 >=60 mL/min/1.73 m2 BUN/Creatinine Ratio 12.9 10.0 - 20.0 Calcium 8.9 8.4 - 10.2 mg/dL CBC Auto Differential Result Value Ref Range WBC 12.98 (H) 4.50 - 11.00 K/mcL RBC 4.59 4.00 - 5.20 M/mcL Hemoglobin 13.3 12.0 - 16.0 g/dL Hematocrit 40.3 36.0 - 46.0 % MCV 87.8 80.0 - 100.0 fL MCH 29.0 26.0 - 34.0 pg MCHC 33.0 31.0 - 37.0 g/dL Platelets 235 150 - 400 K/mcL RDW - CV 14.0 11.6 - 14.8 % MPV 10.2 9.0 - 15.5 fL Neutrophils 81.0 % Lymphocytes 12.6 % Monocytes 5.6 % Eosinophils 0.2 % Basophils 0.2 % IG Percent 0.40 % Neutrophils Abs 10.50 (H) 1.70 - 7.00 K/mcL Lymphocytes Abs 1.64 0.90 - 4.00 K/mcL Monocytes Abs 0.73 0.30 - 0.90 K/mcL Eosinophils Abs 0.03 0.00 - 0.50 K/mcL Basophils Abs 0.03 0.00 - 0.30 K/mcL IG Absolute 0.05 0.00 - 0.30 K/mcL Nucleated RBC 0.0 % Nucleated RBC Abs 0.00 0.00 - 0.00 K/mcL US Pelvic Transvaginal With Color Flow Non-public Result Enlarged globular appearance of the left ovary measuring 9.0 by 4.8 x 5.1 cm with associated 3.7 x 2.8 x 3.7 cm cystic structure. The grayscale findings are suspicious for left ovarian torsion. There is arterial and venous blood flow within the anterior periphery of the left ovary, however, this may be associated with blood flow within paraovarian varices or the twisted suspensory ligament as there is no blood flow on color Doppler imaging centrally within the left ovary. Critical results were called by Dr. Buck Paul to Dr. JEAN-CLAUDE GANNON on 03/08/2019 at 12:58. Workstation ID: [id number] Procedures MDM Number of Diagnoses or Management Options Left ovarian cyst: Torsion of left ovary and ovarian pedicle: Diagnosis management comments: Patient presents emergency room with complaints of acute severe rather sudden onset of mid to lower abdominal pain worse at the suprapubic to below the umbilicus. She has a rather dramatic pain reaction to the slightest touch on the abdominal wall but there is no obvious abdominal wall rigidity or involuntary guarding. Patient is currently in her menstrual period raising the possibility of. Related to cram as a cause of her symptoms. Other causes such as ovarian torsion, ovarian cyst or endometrial related pain or other acute intrapelvic processes are concerned. PID seems less likely due to the fact that patient states this symptoms started rather suddenly and she is afebrile. So basic labs along with pelvic ultrasound with color Doppler obtained and patient received Zofran for nauseous feeling as well as morphine 4 mg IV push for pain control. Radiologist states the ultrasound consistent with left ovarian torsion with left ovarian cyst. Patient's OB service is at [facility], Dr. Cabral. After consultation with appeals court associate justice on-call, Dr. Brewster patient is admitted under her care and is sent to OB floor as ordered by Dr. Brewster. Patient still me now the pain is better after the Dilaudid. Patient discussed with work-up finding i.e. possible left ovarian torsion which can potentially lead to necrosis of the left ovary and loss of the organ. The patient has been informed that they may have pre-hypertension or hypertension based on a blood pressure reading in the Emergency Department. I recommend that the patient call the primary care provider listed on their discharge instructions or a physician of their choice as soon as possible to arrange follow-up in the next 4 weeks for further evaluation of possible pre-hypertension or hypertension. . Clinical Impression: 1. Torsion of left ovary and ovarian pedicle 2. Left ovarian cyst ED Disposition ED Disposition Condition Comment Hospitalize Phone call required?: No Follow-up Information Follow-up information has not been specified. Contact information for after-discharge care Follow-up information has not been specified. Jean-Claude Gannon MD 03/08/19 1312 HISTORY OF ENDOMETRIOSIS - PAIN IN LOWER ABD/ PELVIC AREA - STARTED MENSES THIS AM AND PAIN BEGAN THEREAFTER Bed: 19 Expected date: Expected time: Means of arrival: Comments: EMS documented in this encounter Quick Note - Pretty Walker RN - 03/08/2019 9:50 PM ESTQuick Note - Pretty Walker RN - 03/08/2019 9:35 PM ESTED Attestation Note - Jean-Claude Gannon MD - 03/08/2019 7:48 PM EST Miscellaneous Notes (unrecog nized section and content) Discharge home ambulatory with family driving. In stable condition. Discharge instructions reviewed with pt. Family already got script for pt. PT verbalizes understanding. IV d/c. Pt to dress for d/c. ED Attestation I was in the emergency department available for consultation Brief Post Operative Note Patient Name: Elidia Hill : 1990 (29 y.o.) Date of Service: 03/08/2019 CSN: [id number] Procedure(s): Left Ovarian Cystectomy, Lysis of Adhesions Pre-Operative Diagnoses: * Left Ovarian Torsion Post-Operative Diagnoses: Surgeon(s) and Role: * Durga Brewster MD - Primary Anesthesiologist: Pedro Dejesus MD COOK STARCH: Radha López CRNA; Shy Ahn CRNA Director Of Physical Security: Radha Juan RN; Ara Cervantes RN Scrub Person: Bridget Joya RN Nurse Float: Radha Andrews RN Operative findings: bilateral ovarian cysts, pelvic adhesions Intra and immediate post-operative complications: none Type of anesthesia used: General Estimated blood loss: 5 mL Estimated urine output: Refer to surgical log 100 mL Specimen(s): ID Type Source Tests Collected by Time Destination A : Portion Left Ovary Tissue Ovary, Left TISSUE EXAM Durga Brewster MD 03/08/2019 1752 Implant(s): Implant Name Type Inv. Item Serial No. Service Crew Leader Lot No. LRB No. Used Action HEMOSTAT 1GM AMANDA - [id number] HEMOSTAT 1GM AMANDA [id number] Left 1 Implanted Drain(s): * No LDAs found * Wound(s): Wound 03/08/19 Surgical Wound Vagina (Active) Wound 03/08/19 Surgical Wound Abdomen Left (Active) Durga Brewster MD 03/08/2019 6:00 PM documented in this encounter FOR RECORDS PERTAINING TO PATIENTS WHO ARE OR HAVE BEEN ENROLLED IN A CHEMICAL DEPENDENCY/SUBSTANCEABUSE PROGRAM, SOME INFORMATION MAY BE OMITTED. This clinical summary was aggregated from multiple sources. Caution should be exercised in using it in the provision of clinical care. This summary normalizes information from multiple sources, and as a consequence, information in this document may materially change the coding, format and clinical context of patient data. In addition, data may be omitted in some cases. CLINICAL DECISIONS SHOULD BE BASED ON THE PRIMARY CLINICAL RECORDS. [email or web address] provides no warranty or guarantee of the accuracy or completeness of information in this document.
== END 2023-07-18 10:00 | disposition home or self-care (01) ==
LOC: PST 10:00
PROVIDERS: PCP Family Medicine; Visit Provider Obstetrics & Gynecology
DX: Z01.818 Encounter for other preprocedural examination (principal); R10.2 Pelvic and perineal pain; N80.9 Endometriosis, unspecified; N92.0 Excessive and frequent menstruation with regular cycle

== ENCOUNTER 2023-07-28 06:13 | Day surgery (SDC) | payer MEDICAID, SELFPAY ==
[2023-07-18 10:06] VITALS: BP 118/78; PULSE 110; TEMP 36.3; O2SAT 100; BMI 23.1
[2023-07-28] VITALS (14 sets, daily range): BP systolic 106–135; BP diastolic 53–87; PULSE 55–84; TEMP 36.1–36.8; O2SAT 97–100; BMI 22.7
--- OUTSIDE RECORDS SUMMARY | 2023-07-28 06:17 | XMS_ITS | CCD ---
Author Organization [facility] Care Team Providers Care Engine Hostler Name Role Phone System, Provider Not In Primary Care Provider Un available SYSTEM, PROVIDER NOT IN Primary Care Unavaila ble DURGA BREWSTER Consulting Unavailabl e IMANI, DURGA NAVARRO Attending Unavailabl e DURGA BREWSTER Admitting Unavailabl e KARASIK ., DR LOMELI Attending Unavailabl e SHARMAINE, [facility] Primary Care Unavailable KARASIK ., DR LOMELI [...] ., DR LOMELI Attending Unavailabl e SHARMAINE, [facility] Primary Care Unavailable KARASIK ., DR LOMELI Admitting Unavailabl e KARASIK ., DR LOMELI Procedure Practitioner Loretta vailable KARASIK ., DR LOMELI Consulting Unavailabl e DIANA ., DR NORMAN Consulting Unavailable ZIEBER, DR MELISSA Perez Consulting Unavailable ZEKE CONKLIN Consulting Unavailable MELISSA MEJIA Consulting Unavailable ABENA, DR FUAD Perez Consulting Unavailable ABENA, DR FUAD Perez Admitting Unavailable SHARMAINE, MAYRA Primary Care Unavailable ABENA, DR FUAD Perez Attending Unavailable SHER THORPE Consulting Unavailable SHER THORPE Admitting Unavailable SHER THORPE Attending Unavailable SHARMAINE, [facility] Primary Care Unavailable SHARMAINE, [facility] Primary Care Unavailable KARASIK ., DR LOMELI Attending Unavailabl e KARASIK ., DR LOMELI Admitting Andrey SCHMID [facility] Primary [facility] Unavailable KARFRANKLIN ., DR LOMELI Admitting Andrey CABRAL ., [facility] LOMELI [facility] Un[facility] KARASIK ., DR LOMELI Consulting [facility] CAB[facility]AL ., [facility] LOMELI [facility] Attending Unavailable ESTER ORTIZ Attending Unavailable Allergies Allergy Classification Reported Allergen(s) Allergy Type Date of Onset Reaction(s) Facility (1 source) Codeine Drug Allergy [address] [facility] (3 sources) Penicillins; Translations: [Unknown] Propensity to adverse reactions to drug [address] [facility] (1 source) Sulfonamides (Antibiotic) Propensity to adverse reactions to drug [address] [facility] (1 source) Codeine Drug Allergy 3 [facility] (1 source) Sulfonamides (Antibiotic) Drug allergy (disorder) 3 [facility] Medications Current Medications Medication Drug Class(es) Dates Sig (Normalized) Sig (Original) vitamin with Ca-Iron-FA 27-1 mg Tab (1 source) take 1 tablet by saqib th once daily vitamin with Ca-Iron-FA 27-1 mg [...] as needed ondansetron (ZOFRAN) injection 4 mg Problems Active Problems Problem Classification Problem Date [...] [UTI SITE NOT SPECIFIED] Onset: 07-09-2021 Episodic Results Test Name Value Interpretation Reference Range Facility TSHon 05-25-2022 TSH 1.146 uIU/mL Normal 0.358-3.740 [facility] Comment on above: Performed By: #### C BC #### [facility] [address] [place] [address] Dr. Vale Russell ANTIBODY ID PANELon 08-20-19 ANTIBODY ID PANEL Antibody ID Anti-D Blood Bank Notes possibly due to rhogam given on 06/26/21 Normal [facility] Comment on above: Performed By: #### C BC #### [facility] [address] [place] [address] Dr. Vale Russell CBC AUTO DIFFon 08-14-2021 BASO # 0.0 103/ul Normal 0.0-0.1 [facility] Comment on above: Performed By: #### C BC #### [facility] [address] [place] [address] Dr. Vale Russell Basophils/100 WBC (Bld) 0.2 % Normal 0.2-2.0 [facility] Comment on above: Performed By: #### C BC #### [facility] [address] [address] [address] Vale Russell EO # 0.0 103/ul Normal 0.0-0.7 [facility] Comment on above: Performed By: #### C BC #### [facility] [address] [address] [address] Vale Russell Eosinophils/100 WBC (Bld) 0.2 % Critically low 0.9-7.0 [facility] Comment on above: Performed By: #### C BC #### [facility] [address] [place] [address] Dr. Vale Russell Erythrocyte distribution width (RBC) [Ratio] 13.5 % Normal 11.0-15.0 [facility] Comment on above: Performed By: #### C BC #### [facility] [address] [place] [address] Dr. Vale Russell Hematocrit (Bld) [Volume fraction] 29.9 % Critically low 36.0-48.0 [facility] Comment on above: Performed By: #### C BC #### [facility] [address] [place] [address] Dr. Vale Russell Hemoglobin (Bld) [Mass/Vol] 10.1 g/dL Critically low 12.0-16.0 [facility] Comment on above: Performed By: #### C BC #### [facility] [address] [place] [address] Dr. Vale Russell IG # 0.13 10e3/ul Critically high 0.00-0.03 [facility] Comment on above: Performed By: #### C BC #### [facility] [address] [place] [address] Dr. Vale Russell IG % 0.8 % Critically high 0.0-0.5 [facility] Comment on above: Performed By: #### C BC #### [facility] [address] [place] [address] Dr. Vale Russell LYMPH # 1.8 103/ul Normal 1.2-3.8 [facility] Comment on above: Performed By: #### C BC #### [facility] [address] [address] [address] Vale Russell Lymphocytes/100 WBC (Bld) 11.0 % Critically low 20.5-60.0 [facility] Comment on above: Performed By: #### C BC #### [facility] [address] [place] [address] Dr. Vale Russell MANUAL DIFF REQ NO Normal [facility] Comment on above: Performed By: #### C BC #### [facility] [address] [place] [address] Dr. Vale Russell MCH (RBC) [Entitic mass] 31.2 pg Normal 26.7-34.0 [facility] Comment on above: Performed By: #### C BC #### [facility] [address] [place] [address] Dr. Vale Russell MCHC (RBC) [Mass/Vol] 33.8 g/dL Normal 29.9-35.2 [facility] Comment on above: Performed By: #### C BC #### [facility] [address] [place] [address] Dr. Vale Russell MCV (RBC) [Entitic vol] 92.3 fL Normal 81.0-99.0 [facility] Comment on above: Performed By: #### C BC #### [facility] [address] [place] [address] Dr. Vale Russell MONO # 1.0 103/ul Critically high 0.3-0.8 [facility] Comment on above: Performed By: #### C BC #### [facility] [address] [place] [address] Dr. Vale Russell Monocytes/100 WBC (Bld) 6.3 % Normal 1.7-12.0 [facility] Comment on above: Performed By: #### C BC #### [facility] [address] [place] [address] Dr. Vale Russell NEUT # 13.4 103/ul Critically high 1.4-6.5 [facility] Comment on above: Performed By: #### C BC #### [facility] [address] [place] [address] Dr. Vale Russell Neutrophils/100 WBC (Bld) 81.5 % Critically high 43.0-75.0 [facility] Comment on above: Performed By: #### C BC #### [facility] [address] [place] [address] Dr. Vale Russell Platelet mean volume (Bld) [Entitic vol] 10.2 fL Normal 9.5-13.5 [facility] Comment on above: Performed By: #### C BC #### [facility] [address] [place] [address] Dr. Vale Russell PLT 162 103/ul Normal 150-450 [facility] Comment on above: Performed By: #### C BC #### [facility] [address] [place] [address] Dr. Vale Russell RBC 3.24 106/ul Critically low 4.20-5.40 [facility] Comment on above: Performed By: #### C BC #### [facility] [address] [place] [address] Dr. Vale Russell WBC 16.4 103/ul Critically high 4.0-11.0 [facility] Comment on above: Performed By: #### C BC #### [facility] [address] [place] [address] Dr. Vale Russell CBC AUTO DIFFon 08-13-2021 BASO # 0.0 103/ul Normal 0.0-0.1 [facility] Comment on above: Performed By: #### C BC #### [facility] [address] [place] [address] Dr. Vale Russell Basophils/100 WBC (Bld) 0.3 % Normal 0.2-2.0 [facility] Comment on above: Performed By: #### C BC #### [facility] [address] [place] [address] Dr. Vale Russell EO # 0.1 103/ul Normal 0.0-0.7 [facility] Comment on above: Performed By: #### C BC #### [facility] [address] [place] [address] Dr. Vale Russell Eosinophils/100 WBC (Bld) 1.1 % Normal 0.9-7.0 [facility] Comment on above: Performed By: #### C BC #### [facility] [address] [place] [address] Dr. Vale Russell Erythrocyte distribution width (RBC) [Ratio] 13.3 % Normal 11.0-15.0 [facility] Comment on above: Performed By: #### C BC #### [facility] [address] [place] [address] Dr. Vale Russell Hematocrit (Bld) [Volume fraction] 36.4 % Normal 36.0-48.0 [facility] Comment on above: Performed By: #### C BC #### [facility] [address] [place] [address] Dr. Vale Russell Hemoglobin (Bld) [Mass/Vol] 12.1 g/dL Normal 12.0-16.0 [facility] Comment on above: Performed By: #### C BC #### [facility] [address] [place] [address] Dr. Vale Russell IG # 0.12 10e3/ul Critically high 0.00-0.03 [facility] Comment on above: Performed By: #### C BC #### [facility] [address] [place] [address] Dr. Vale Russell IG % 1.1 % Critically high 0.0-0.5 [facility] Comment on above: Performed By: #### C BC #### [facility] [address] [place] [address] Dr. Vale Russell LYMPH # 1.4 103/ul Normal 1.2-3.8 [facility] Comment on above: Performed By: #### C BC #### [facility] [address] [place] [address] Dr. Vale Russell Lymphocytes/100 WBC (Bld) 12.8 % Critically low 20.5-60.0 [facility] Comment on above: Performed By: #### C BC #### [facility] [address] [place] [address] Dr. Vale Russell MANUAL DIFF REQ NO Normal [facility] Comment on above: Performed By: #### C BC #### [facility] [address] [place] [address] Dr. Vale Russell MCH (RBC) [Entitic mass] 30.6 pg Normal 26.7-34.0 [facility] Comment on above: Performed By: #### C BC #### [facility] [address] [place] [address] Dr. Vale Russell MCHC (RBC) [Mass/Vol] 33.2 g/dL Normal 29.9-35.2 [facility] Comment on above: Performed By: #### C BC #### [facility] [address] [place] [address] Dr. Vale Russell MCV (RBC) [Entitic vol] 92.2 fL Normal 81.0-99.0 [facility] Comment on above: Performed By: #### C BC #### [facility] [address] [place] [address] Dr. Vale Russell MONO # 0.4 103/ul Normal 0.3-0.8 [facility] Comment on above: Performed By: #### C BC #### [facility] [address] [place] [address] Dr. Vale Russell Monocytes/100 WBC (Bld) 3.6 % Normal 1.7-12.0 [facility] Comment on above: Performed By: #### C BC #### [facility] [address] [place] [address] Dr. Vale Russell NEUT # 8.7 103/ul Critically high 1.4-6.5 [facility] Comment on above: Performed By: #### C BC #### [facility] [address] [place] [address] Dr. Vale Russell Neutrophils/100 WBC (Bld) 81.1 % Critically high 43.0-75.0 [facility] Comment on above: Performed By: #### C BC #### [facility] [address] [place] [address] Dr. Vale Russell Platelet mean volume (Bld) [Entitic vol] 10.2 fL Normal 9.5-13.5 [facility] Comment on above: Performed By: #### C BC #### [facility] [address] [place] [address] Dr. Vale Russell PLT 134 103/ul Critically low 150-450 [facility] Comment on above: Performed By: #### C BC #### [facility] [address] [id number] [address] Vale Russell RBC 3.95 106/ul Critically low 4.20-5.40 [facility] Comment on above: Performed By: #### C BC #### [facility] [address] [place], [place] [id number] Dr. Vale Russell WBC 10.7 103/ul Normal 4.0-11.0 [facility] Comment on above: Performed By: #### C BC #### [facility] [address] [place] [address] Dr. Vale Russell Covid-19 PCR ([facility])on SARS-CoV-2 (COVID-19) RNA VIGNESH+probe Ql (Unsp spec) Not detected Normal NOT DETECTED [facility] Comment on above: Result Comment: When diagnostic [...] for this test is supported by the [place] of Health and Human Service's declaration that [...] used). Performed By: #### C VDTBH #### [facility] [address] [address] [address] Vale Russell DRUG SCREEN RAPID (URINE)on 08-13-2021 AMP Negative Normal NEGATIVE [facility] Comment on above: Performed By: #### D RUGRPD #### [facility] [address] [address] [address] Vale Russell BAR Negative Normal NEGATIVE [facility] Comment on above: Performed By: #### D RUGRPD #### [facility] [address] [address] [address] Vale Russell BUP Negative Normal NEGATIVE [facility] Comment on above: Performed By: #### D RUGRPD #### [facility] [address] [place] [address] Dr. Vale Russell BZO Negative Normal NEGATIVE [facility] Comment on above: Performed By: #### D RUGRPD #### [facility] [address] [place] [address] Dr. Vale Russell HANH Negative Normal NEGATIVE [facility] Comment on above: Performed By: #### D RUGRPD #### [facility] [address] [address] [address] Vale Russell CUT-OFFS SEE BELOW Normal [facility] Comment on above: Result Comment: AMP [...] ng/mL Performed By: #### D RUGRPD #### [facility] [address] [place] [address] Dr. Vale Russell DRUG CUT HEADER DRUG CLASS TEST SYST EM CUT-OFF CONCENTRATIONS ARE FOLLOWS: Normal [facility] Comment on above: Performed By: #### D RUGRPD #### [facility] [address] [place] [address] Dr. Vale Russell mAMP Negative Normal NEGATIVE [facility] Comment on above: Performed By: #### D RUGRPD #### [facility] [address] [place] [address] Dr. Vale Russell MTD Negative Normal NEGATIVE [facility] Comment on above: Performed By: #### D RUGRPD #### [facility] [address] [place] [address] Dr. Vale Russell OPI Negative Normal NEGATIVE [facility] Comment on above: Performed By: #### D RUGRPD #### [facility] [address] [place] [address] Dr. Vale Russell OXY Negative Normal NEGATIVE [facility] Comment on above: Performed By: #### D RUGRPD #### [facility] [address] [place] [address] Dr. Vale Russell PCP Negative Normal NEGATIVE [facility] Comment on above: Performed By: #### D RUGRPD #### [facility] [address] [place] [address] Dr. Vale Russell PPX Negative Normal NEGATIVE [facility] Comment on above: Performed By: #### D RUGRPD #### [facility] [address] [place] [address] Dr. Vale Russell TCA Negative Normal NEGATIVE [facility] Comment on above: Performed By: #### D RUGRPD #### [facility] [address] [place] [address] Dr. Vale Russell THC Negative Normal NEGATIVE [facility] Comment on above: Performed By: #### D RUGRPD #### [facility] [address] [place] [address] Dr. Vale Russell TYPE AND SCREENon 08-13-2021 TYPE AND SCREEN Negative Normal [facility] Comment on above: Performed By: #### T NS #### [facility] [address] [place] [address] Dr. Vale Russell UA (CLEAN/CATCH) DIRECTOR EMERGENCY DEPARTMENT/MICRO I F IND.on 08-13-2021 Bilirubin Ql (U) Negative Normal NEGATIVE [facility] Comment on above: Performed By: #### D RUGRPD #### [facility] [address] [place] [address] Dr. Vale Russell Clarity (U) CLEAR Normal CLEAR [facility] Comment on above: Performed By: #### D RUGRPD #### [facility] [address] [place] [address] Dr. Vale Russell Color (U) LT. YELLOW Normal YELLOW [facility] Comment on above: Performed By: #### D RUGRPD #### [facility] [address] [place] [address] Dr. Vale Russell Glucose Ql (U) Negative Normal NEGATIVE [facility] Comment on above: Performed By: #### D RUGRPD #### [facility] [address] [place] [address] Dr. Vale Russell Hemoglobin Ql (U) SMALL Abnormal NEGATIVE [facility] Comment on above: Performed By: #### D RUGRPD #### [facility] [address] [place] [address] Dr. Vale Russell Ketones Ql (U) Negative Normal NEGATIVE [facility] Comment on above: Performed By: #### D RUGRPD #### [facility] [address] [place] [address] Dr. Vale Russell LEUKOCYTES LARGE Abnormal NEGATIVE [facility] Comment on above: Performed By: #### D RUGRPD #### [facility] [address] [place] [address] Dr. Vale Russell Nitrite Ql (U) Negative Normal NEGATIVE [facility] Comment on above: Performed By: #### D RUGRPD #### [facility] [address] [place] [address] Dr. Vale Russell pH (U) 6.0 [pH] Normal 5-9 [facility] Comment on above: Performed By: #### D RUGRPD #### [facility] [address] [place] [address] Dr. Vale Russell SPEC GRAVITY 1.015 Normal 1.005-<=1.025 [facility] Comment on above: Performed By: #### D RUGRPD #### [facility] [address] [place] [address] Dr. Vale Russell UA PROTEIN Negative Normal NEGATIVE/ TRACE [facility] Comment on above: Performed By: #### D RUGRPD #### [facility] [address] [place] [address] Dr. Vale Russell UR MICRO IND INDICATED Normal [facility] Comment on above: Performed By: #### D RUGRPD #### [facility] [address] [place] [address] Dr. Vale Russell Urobilinogen Qn (U) 0.2 {Carlie'U}/dL Normal 0.2 - 1. 0 [facility] Comment on above: Performed By: #### D RUGRPD #### [facility] [address] [place] [address] Dr. Vale Russell URINE MICROSCOPIC ONLYon BACTERIA TRACE Abnormal NONE SEEN [facility] Comment on above: Performed By: #### D RUGRPD #### [facility] [address] [place] [address] Dr. Vale Russell Bacteria identified Cx Nom (U) NOT INDICATED Normal [facility] Comment on above: Performed By: #### D RUGRPD #### [facility] [address] [place] [address] Dr. Vale Russell CAST NONE SEEN Normal NONE SEEN [facility] Comment on above: Performed By: #### D RUGRPD #### [facility] [address] [place] [address] Dr. Vale Russell Crystals LM Nom (Urine sed) NONE SEEN Normal NONE SEEN [facility] Comment on above: Performed By: #### D RUGRPD #### [facility] [address] [place] [address] Dr. Vale Russell Epithelial cells LM Ql (Urine sed) FEW Abnormal NONE SEEN /RARE [facility] Comment on above: Performed By: #### D RUGRPD #### [facility] [address] [address] [address] Vale Russell MUCOUS NONE SEEN Normal NONE SEEN [facility] Comment on above: Performed By: #### D RUGRPD #### [facility] [address] [address] [address] Vale Russell RBC 2-5 Abnormal 0-2 [facility] Comment on above: Performed By: #### D RUGRPD #### [facility] [address] [address] [address] Vale Russell WBC 5-10 Abnormal NONE SEEN [facility] Comment on above: Performed By: #### D RUGRPD #### [facility] [address] [address] [address] Vale Russell US PREG BIOPHY W [...] MELISSA GOLDSTEIN Date: 2021-08-13 07:38 Normal [facility] US PREG PLACENTAon US PREG PLACENTA EXAMINATION: [...] MELISSA GOLDSTEIN Date: 2021-08-13 07:42 Normal [facility] CBC AUTO DIFFon 06-29-2021 BASO # 0.0 103/ul Normal 0.0-0.1 [facility] Comment on above: Performed By: #### C BC #### [facility] [address] [address] [address] Vale Russell Basophils/100 WBC (Bld) 0.2 % Normal 0.2-2.0 [facility] Comment on above: Performed By: #### C BC #### [facility] [address] [address] [address] Vale Russell EO # 0.1 103/ul Normal 0.0-0.7 [facility] Comment on above: Performed By: #### C BC #### [facility] [address] [place] [address] Dr. Vale Russell Eosinophils/100 WBC (Bld) 1.1 % Normal 0.9-7.0 [facility] Comment on above: Performed By: #### C BC #### [facility] [address] [place] [address] Dr. Vale Russell Erythrocyte distribution width (RBC) [Ratio] 13.0 % Normal 11.0-15.0 [facility] Comment on above: Performed By: #### C BC #### [facility] [address] [place] [address] Dr. Vale Russell Hematocrit (Bld) [Volume fraction] 37.3 % Normal 36.0-48.0 [facility] Comment on above: Performed By: #### C BC #### [facility] [address] [place] [address] Dr. Vale Russell Hemoglobin (Bld) [Mass/Vol] 12.3 g/dL Normal 12.0-16.0 [facility] Comment on above: Performed By: #### C BC #### [facility] [address] [place] [address] Dr. Vale Russell IG # 0.11 10e3/ul Critically high 0.00-0.03 [facility] Comment on above: Performed By: #### C BC #### [facility] [address] [place] [address] Dr. Vale Russell IG % 0.9 % Critically high 0.0-0.5 [facility] Comment on above: Performed By: #### C BC #### [facility] [address] [place] [address] Dr. Vale Russell LYMPH # 2.0 103/ul Normal 1.2-3.8 [facility] Comment on above: Performed By: #### C BC #### [facility] [address] [place] [address] Dr. Vale Russell Lymphocytes/100 WBC (Bld) 16.0 % Critically low 20.5-60.0 [facility] Comment on above: Performed By: #### C BC #### [facility] [address] [place] [address] Dr. Vale Russell MANUAL DIFF REQ NO Normal [facility] Comment on above: Performed By: #### C BC #### [facility] [address] [place] [address] Dr. Vale Russell MCH (RBC) [Entitic mass] 30.7 pg Normal 26.7-34.0 [facility] Comment on above: Performed By: #### C BC #### [facility] [address] [place] [address] Dr. Vale Russell MCHC (RBC) [Mass/Vol] 33.0 g/dL Normal 29.9-35.2 [facility] Comment on above: Performed By: #### C BC #### [facility] [address] [place] [address] Dr. Vale Russell MCV (RBC) [Entitic vol] 93.0 fL Normal 81.0-99.0 [facility] Comment on above: Performed By: #### C BC #### [facility] [address] [place] [address] Dr. Vale Russell MONO # 0.8 103/ul Normal 0.3-0.8 [facility] Comment on above: Performed By: #### C BC #### [facility] [address] [place] [address] Dr. Vale Russell Monocytes/100 WBC (Bld) 6.2 % Normal 1.7-12.0 [facility] Comment on above: Performed By: #### C BC #### [facility] [address] [address] [address] Vale Russell NEUT # 9.5 103/ul Critically high 1.4-6.5 [facility] Comment on above: Performed By: #### C BC #### [facility] [address] [address] [address] Vale Russell Neutrophils/100 WBC (Bld) 75.6 % Critically high 43.0-75.0 [facility] Comment on above: Performed By: #### C BC #### [facility] [address] [address] [address] Vale Russell Platelet mean volume (Bld) [Entitic vol] 9.9 fL Normal 9.5-13.5 [facility] Comment on above: Performed By: #### C BC #### [facility] [address] [address] [address] Vale Russell PLT 167 103/ul Normal 150-450 [facility] Comment on above: Performed By: #### C BC #### [facility] [address] [address] [address] Vale Russell RBC 4.01 106/ul Critically low 4.20-5.40 [facility] Comment on above: Performed By: #### C BC #### [facility] [address] [address] [address] Vale Russell WBC 12.5 103/ul Critically high 4.0-11.0 [facility] Comment on above: Performed By: #### C BC #### [facility] [address] [address] [address] Vale Russell CULTURE URINEon 06-29-2021 CULTURE URINE Culture Observations : MODERATE GROWTH OF MIXED GENITAL CHU. NO POTENTIAL PATHOGENS SEEN. Normal [facility] Comment on above: Performed By: #### C BC #### [facility] [address] [address] [address] Vale Russell ER URINE PROFILEon Bilirubin Ql (U) Negative Normal NEGATIVE [facility] Comment on above: Performed By: #### Brielle BAEZ UMICRO #### [facility] [address] [place] [address] Dr. Vale Russell Clarity (U) CLEAR Normal CLEAR [facility] Comment on above: Performed By: #### Brielle BAEZ UMICRO #### [facility] [address] [place] [address] Dr. Vale Russell Color (U) LT. YELLOW Normal YELLOW [facility] Comment on above: Performed By: #### Brielle BAEZ UMICRO #### [facility] [address] [place] [address] Dr. Vale BAINS A micrscopic examination will be performed if indicated. Normal [facility] Comment on above: Performed By: #### Brielle BAEZ UMICRO #### [facility] [address] [place] [address] Dr. Vale Russell Glucose Ql (U) Negative Normal NEGATIVE [facility] Comment on above: Performed By: #### Brielle BAEZ UMICRO #### [facility] [address] [place] [address] Dr. Vale Russell Hemoglobin Ql (U) Negative Normal NEGATIVE [facility] Comment on above: Performed By: #### LISSETTE ELKINSRO #### [facility] [address] [place] [address] Dr. Vale Russell Ketones Ql (U) Negative Normal NEGATIVE [facility] Comment on above: Performed By: #### LISSETTE ELKINSRO #### [facility] [address] [place] [address] Dr. Vale Russell LEUKOCYTES MODERATE Abnormal NEGATIVE [facility] Comment on above: Performed By: #### LISSETTE ELKINSRO #### [facility] [address] [place] [address] Dr. Vale Russell Nitrite Ql (U) Negative Normal NEGATIVE [facility] Comment on above: Performed By: #### Brielle BAEZ UMICRO #### [facility] [address] [place] [address] Dr. Vale Russell pH (U) 6.5 [pH] Normal 5-9 [facility] Comment on above: Performed By: #### LISSETTE ELKINSRO #### [facility] [address] [place] [address] Dr. Vale Russell SPEC GRAVITY <=1.005 Abnormal 1.005-<=1.025 [facility] Comment on above: Performed By: #### LISSETTE ELKINSRO #### [facility] [address] [place] [address] Dr. Vale Russell UA PROTEIN Negative Normal NEGATIVE/ TRACE [facility] Comment on above: Performed By: #### SUSY ELKINSICRO #### [facility] [address] [place] [address] Dr. Vale Russell UR MICRO IND INDICATED Normal [facility] Comment on above: Performed By: #### LISSETTE ELKINSRO #### [facility] [address] [place] [address] Dr. Vale Russell Urobilinogen Qn (U) 0.2 {Carlie'U}/dL Normal 0.2 - 1. 0 [facility] Comment on above: Performed By: #### LISSETTE ELKINSRO #### [facility] [address] [place] [address] Dr. Vale Russell PROF 14(COMP METB)on 022 Albumin [Mass/Vol] 3.0 g/dL Critically low 3.4-5.0 [facility] Comment on above: Performed By: #### C MP #### [facility] [address] [place] [address] Dr. Vale Russell Albumin/Globulin [Mass ratio] 0.8 {ratio} Normal [facility] Comment on above: Performed By: #### C MP #### [facility] [address] [place] [address] Dr. Vale Russell ALP [Catalytic activity/Vol] 86 U/L Normal 46-116 [facility] Comment on above: Performed By: #### C MP #### [facility] [address] [place] [address] Dr. Vale Russell ALT [Catalytic activity/Vol] 21 U/L Normal 14-59 [facility] Comment on above: Performed By: #### C MP #### [facility] [address] [place] [address] Dr. Vale Russell Anion gap [Moles/Vol] 11.1 mmol/L Normal [facility] Comment on above: Performed By: #### C MP #### [facility] [address] [address] [address] Vale Russell AST [Catalytic activity/Vol] 16 U/L Normal 15-37 [facility] Comment on above: Performed By: #### C MP #### [facility] [address] [address] [address] Vale Russell Bilirubin [Mass/Vol] 0.3 mg/dL Normal 0.2-1.0 [facility] Comment on above: Performed By: #### C MP #### [facility] [address] [place] [address] Dr. Vale Russell Calcium [Mass/Vol] 9.0 mg/dL Normal 8.5-10.1 [facility] Comment on above: Performed By: #### C MP #### [facility] [address] [place] [address] Dr. Vale Russell Chloride [Moles/Vol] 106 mmol/L Normal 98-107 [facility] Comment on above: Performed By: #### C MP #### [facility] [address] [address] [address] Vale Russell CO2 [Moles/Vol] 25.6 mmol/L Normal 21.0-32.0 [facility] Comment on above: Performed By: #### C MP #### [facility] [address] [place] [address] Dr. Vale Russell Creatinine [Mass/Vol] 0.60 mg/dL Normal 0.55-1.02 [facility] Comment on above: Performed By: #### C MP #### [facility] [address] [address] [address] Vale Russell EGFR-AF CITIZEN [place] >60 Normal >=60 [facility] Comment on above: Performed By: #### C MP #### [facility] [address] [address] [address] Vale Russell EGFR-NON AF CITIZEN OF [place] >60 Normal >=60 [facility] Comment on above: Performed By: #### C MP #### [facility] [address] [address] [address] Vale Russell Globulin (S) [Mass/Vol] 3.8 g/dL Normal [facility] Comment on above: Performed By: #### C MP #### [facility] [address] [address] [address] Vale Russell Glucose [Mass/Vol] 79 mg/dL Normal 74-106 The [facility] Comment on above: Performed By: #### C MP #### [facility] [address] [address] [address] Vale Russell Potassium [Moles/Vol] 3.7 mmol/L Normal 3.5-5.1 [facility] Comment on above: Performed By: #### C MP #### [facility] [address] [address] [address] Vale Russell Protein [Mass/Vol] 6.8 g/dL Normal 6.4-8.2 The [facility] Comment on above: Performed By: #### C MP #### [facility] [address] [address] [address] Vale Russell Sodium [Moles/Vol] 139 mmol/L Normal 136-145 The [facility] Comment on above: Performed By: #### C MP #### [facility] [address] [address] [address] Vale Russell Urea nitrogen [Mass/Vol] 9.0 mg/dL Normal 7.0-18.0 [facility] Comment on above: Performed By: #### C MP #### [facility] [address] [address] [address] Vale Russell Urea nitrogen/Creatinine [Mass ratio] 15.0 mg/mg Normal [facility] Comment on above: Performed By: #### C MP #### [facility] [address] [place] [address] Dr. Vale Russell URINE MICROSCOPIC ONLYon BACTERIA TRACE Abnormal NONE SEEN [facility] Comment on above: Performed By: #### LISSETTE ELKINSRO #### [facility] [address] [place] [address] Dr. Vael Russell Bacteria identified Cx Nom (U) INDICATED Normal [facility] Comment on above: Performed By: #### Brielle BAEZ UMICRO #### [facility] [address] [place] [address] Dr. Vale Russell CAST NONE SEEN Normal NONE SEEN [facility] Comment on above: Performed By: #### Brielle BAEZ UMICRO #### [facility] [address] [place] [address] Dr. Vale Russell Crystals LM Nom (Urine sed) NONE SEEN Normal NONE SEEN [facility] Comment on above: Performed By: #### SUSY ELKINSICRO #### [facility] [address] [place] [address] Dr. Vale Russell Epithelial cells LM Ql (Urine sed) FEW Abnormal NONE SEEN /RARE [facility] Comment on above: Performed By: #### SUSY ELKINSICRO #### [facility] [address] [place] [address] Dr. Vale Russell MUCOUS NONE SEEN Normal NONE SEEN [facility] Comment on above: Performed By: #### LISSETTE ELKINSRO #### [facility] [address] [place] [address] Dr. Vale Russell RBC 2-5 Abnormal 0-2 [facility] Comment on above: Performed By: #### Brielle BAEZ UMICRO #### [facility] [address] [place] [address] Dr. Vale Russell WBC 50-75 Abnormal NONE SEEN [facility] Comment on above: Performed By: #### Brielle BAEZ UMICRO #### [facility] [address] [place] [address] Dr. Vale Russell RHOGAMon 06-26-2021 RHOGAM Status Information Issued Quantity 1 Product ID Rh Immune Globulin Lot Number [id number] Issue Date/Time [id number] Normal [facility] Comment on above: Performed By: #### R HOG #### [facility] [address] [place] [address] Dr. Vale Russell TYPE AND SCREENon 06-25-2021 TYPE AND SCREEN Negative Normal [facility] Comment on above: Performed By: #### C BC #### [facility] [address] [place] [address] Dr. Vale Russell US PREG TVon 06-24-2021 [...] by: MELISSA GOLDSTEIN Date: 2021-06-24 09:07 Normal [facility] GLUCOSE - 1HRon 06-09-2021 Glucose [Mass/Vol] 130 mg/dL Critically high 74-106 [facility] Comment on above: Performed By: #### C BC #### [facility] [address] [place] [address] Dr. Vale Russell HEMOGRAM AND PLATELon 2021 Hematocrit (Bld) [Volume fraction] 35.6 % Critically low 36.0-48.0 [facility] Comment on above: Performed By: #### H H #### [facility] [address] [place] [address] Dr. Vale Russell Hemoglobin (Bld) [Mass/Vol] 11.8 g/dL Critically low 12.0-16.0 [facility] Comment on above: Performed By: #### H H #### [facility] [address] [place] [address] Dr. Vale Russell MCH (RBC) [Entitic mass] 31.0 pg Normal 26.7-34.0 [facility] Comment on above: Performed By: #### H H #### [facility] [address] [address] [address] Vale Russell MCHC (RBC) [Mass/Vol] 33.1 g/dL Normal 29.9-35.2 [facility] Comment on above: Performed By: #### H H #### [facility] [address] [address] [address] Vale Russell MCV (RBC) [Entitic vol] 93.4 fL Normal 81.0-99.0 [facility] Comment on above: Performed By: #### H H #### [facility] [address] [address] [address] Vale Russell PLT 180 103/ul Normal 150-450 [facility] Comment on above: Performed By: #### H H #### [facility] [address] [place] [address] Dr. Vale Russell RBC 3.81 106/ul Critically low 4.20-5.40 [facility] Comment on above: Performed By: #### H H #### [facility] [address] [address] [address] Vale Russell WBC 10.1 103/ul Normal 4.0-11.0 [facility] Comment on above: Performed By: #### H H #### [facility] [address] [place] [address] Dr. Vale Russell Consenton 12-03-2020 Consent [id number] 03 [id number]. 00CD:[address] [facility] Registrationon 12-03-2020 Registration [id number] 03 [id number]. 00CD:[address] [facility] CNCOon 05-05-2020 CNCO Letter Text Normal [facility] CNOVon 05-05-2020 CNOV Office Visit (REIAV) ELIDIA LEMA ([id number]) 1990 F Date Time Provider Department 05/05/20 8:45 AM MEG RODRIGUEZ During your visit today, we recorded the following information about you: Pulse Blood pressure Weight Height 73/minute 126/74 57.2 kg 1.6 m Last Period 05/04/20 Ara Handy MD 05/05/2020 6:04 PM Signed [facility] Date: 05/05/2020 Consultation Requested By: [...] Hysteroscopy Laparoscopy OPK (Ovulation Predictor Kit) O[facility] [place] Ultrasound Semen Analysis Ultrasound Other (See [...] pelvic cyst - PAST SURGICAL HISTORY OF ~2004, ~2015, 10/2018 pelvic surgery - removal of endometrosis [...] MRN: Partner's Ethnicity: Partner's Race: White Occupation: [employer] Legally ?: Yes Years together: 6 months, [...] with more than 50% of the total ummr-uj-qcul time of the visit in counseling / coordination of care. Consultation requested by Dr. Pulliam for an opinion regarding endometriosis and my recommendations will be communicated back to the requesting physician by way of shared Medical record or letter via [place] mail , MD signature -MD Ara Fritz MD Julie Tan, MD 05/05/2020 9:25 AM Signed Consider clomid IUI or IVF if you are not by August. Dear Elidia, Thank you for seeing me today at the [facility]. I want to welcome you to my practice and answer some frequently asked questions. I know that we have discussed several things today and it can be overwhelming. I hope this information will help answer some of your questions. 1. How mami (more content not included)... Normal [facility] CONSULT PROGon 05-05-2020 CONSULT PROG HNO ID: [id number] Author: Meg Rodriguez Service: ? Author Type: Physician Type: Consult Progress Note Filed: 05/05/2020 6:04 PM Note Text: [facility] Date: 05/05/2020 Consultation Requested By: [...] Hysteroscopy Laparoscopy OPK (Ovulation Predictor Kit) Ovarian [place] Ultrasound Semen Analysis Ultrasound Other (See [...] pelvic cyst - PAST SURGICAL HISTORY OF ~2004, ~2015, 10/2018 pelvic surgery - removal of endometrosis [...] MRN: Partner's Ethnicity: Partner's Race: White Occupation: [employer] Legally ?: Yes Years together: 6 months, [...] with more than 50% of the total joac-tv-jhsb time of the visit in counseling / coordination of care. Consultation requested by Dr. Pulliam for an opinion regarding endometriosis and my recommendations will be communicated back to the requesting physician by way of shared Medical record or letter via [place] mail , MD signature -MD Ara Fritz MD [facility] CNCOon 04-14-2020 CNCO Letter Text Normal [facility] CNOVon 04-14-2020 CNOV Office Visit (GMIGFV ) ELIDIA LEMA ([id number]) 1990 F Date Time Provider Department 04/14/20 [...] of endometriosis and CPP Pt travels from [place] and receives primary calenderer care with her local provider. Underwent RA-lsc [...] pelvic cyst - PAST SURGICAL HISTORY OF ~2004, ~2014, 10/2018 pelvic surgery - removal of [...] which included preparing to see the patient, eozf-ne-nfwb patient care, completing clinical documentation and counseling [...] female [R10.2, G89.29] Order(s):CONSULT TO INFERTILITY CLINIC [[id number]] Order #: [id number]: [id number] FUTURE Prescriptions as of 04/14/2020 Sig: [...] Encounter Pr (more content not included)... Normal [facility] BMPon 03-08-2019 Anion gap [Moles/Vol] 12 mmol/L 10 - 20 mmol/L [facility] Calcium [Mass/Vol] 8.9 mg/dL 8.4 - 10. 2 mg/dL [facility] Chloride [Moles/Vol] 104 mmol/L 98 - 108 mmol/L [facility] Creatinine [Mass/Vol] 0.85 mg/dL 0.4 - 1.1 mg/dL [facility] GFR/1.73 sq M predicted among non-blacks MDRD (S/P/Bld) [Vol rate/Area] The eGFR should be used for monitoring renal function only and not for medication dosing. [facility] GFR/1.73 sq M.predicted CKD-EPI (S/P/Bld) [Vol rate/Area] 93 >=60 mL/min/1.[address] [facility] Glucose [Mass/Vol] 136 mg/dL High 65 - 99 mg/dL [facility] HCO3 [Moles/Vol] 25 mmol/L 21 - 32 mmol/L [facility] Interpretation and review of laboratory results Abnormal [facility] Potassium [Moles/Vol] 3.6 mmol/L 3.5 - 5.1 mmol/L [facility] Sodium [Moles/Vol] 137 mmol/L 135 - 145 mmol/L [facility] Urea nitrogen [Mass/Vol] 11 mg/dL 8 - 25 mg/dL [facility] Urea nitrogen/Creatinine [Mass ratio] 12.9 mg/mg [facility] CBC WITH AUTO DIFFERENTIALon 03-08-2019 Basophils (Bld) [#/Vol] 0.03 10*3/uL [facility] Basophils/100 WBC (Bld) 0.2 % [facility] Eosinophils (Bld) [#/Vol] 0.03 10*3/uL [facility] Eosinophils/100 WBC (Bld) 0.2 % [facility] Erythrocyte distribution width (RBC) [Entitic vol] 14.0 % 11.6 - 14.8 % [facility] Hematocrit (Bld) [Volume fraction] 40.3 % 36 - 46 % [facility] Hemoglobin (Bld) [Mass/Vol] 13.3 g/dL 12 - 16 g/dL [facility] Immature granulocytes (Bld) [#/Vol] 0.05 10*3/uL [facility] Immature granulocytes/100 WBC (Bld) 0.40 % [facility] Comment on above: The IG parameter is the percentage of metamyelocytes, myelocytes, and promyelocytes. Interpretation and review of laboratory results Abnormal [facility] Lymphocytes (Bld) [#/Vol] 1.64 10*3/uL [facility] Lymphocytes/100 WBC (Bld) 12.6 % [facility] MCH (RBC) [Entitic mass] 29.0 pg 26 - [address] [facility] MCHC (RBC) [Mass/Vol] 33.0 g/dL 31 - 37 g/dL [facility] MCV (RBC) [Entitic vol] 87.8 fL 80 - [address] [facility] Monocytes (Bld) [#/Vol] 0.73 10*3/uL [facility] Monocytes/100 WBC (Bld) 5.6 % [facility] Neutrophils (Bld) [#/Vol] 10.50 10*3/uL High [facility] Neutrophils/100 WBC (Bld) 81.0 % [facility] Nucleated RBC (Bld) [#/Vol] 0.00 10*3/uL [facility] Nucleated RBC/100 WBC (Bld) [Ratio] 0.0 % [facility] Platelet mean volume (Bld) [Entitic vol] 10.2 fL 9 - 15.[address] [facility] Platelets (Bld) [#/Vol] 235 10*3/uL [facility] RBC (Bld) [#/Vol] 4.59 10*6/uL [facility] ealth WBC (Bld) [#/Vol] 12.98 10*3/uL [facility] URINALYSISon 03-08-2019 Bacteria Auto Ql (U) Rare Abnormal None Seen /hpf [facility] Bilirubin Ql (U) Negative Negative [facility] th Clarity Refractometry automated (U) Hazy Abnormal Clear [facility] Color (U) Yellow Colorless, Yellow [facility] Crystals.amorphous Computer assisted (U) [#/Area] Many Abnormal None Seen, Rare /hpf [facility] Epithelial cells.squamous Auto (Urine sed) [#/Area] 1 [facility] Glucose Auto test strip (U) [Mass/Vol] Negative Negative mg/dL [facility] Hemoglobin Auto test strip Ql (U) Small Abnormal Negative [facility] Interpretation and review of laboratory results Abnormal [facility] Ketones (U) [Mass/Vol] >=80 Abnormal Negative mg/dL [facility] Leukocyte esterase Auto test strip Ql (U) Negative Negative [facility] Nitrite Auto test strip Ql (U) Negative Negative [facility] pH (U) 6.0 [pH] [facility] Protein (U) [Mass/Vol] Negative Negative mg/dL [facility] RBC Auto (Urine sed) [#/Area] [address] [facility] Specific gravity (U) [Rel density] 1.[address] [facility] Urobilinogen (U) [Mass/Vol] <2.0 <2.0 mg/dL [facility] Microscopic examination is performed on all urinalysis samples and only positive findings are reported. The test for blood on the chemical analytic portion of urinalysis may also be positive due to hemoglobinuria and myoglobinuria and if red blood cells are present they are quantified by microscopic examination. [facility] PELVIC TRANSVAGINAL WITH COLOR FLOWon 03-08-2019 PELVIC TRANSVAGINAL WITH COLOR FLOW EXAMINATION: US [...] Dr. JEAN-CLAUDE GANNON on 03/08/2019 at 12:58. [employer]/DrAvailable Workstation ID: [id number] Dictated by: BUCK PAUL on TueMar 08, 2019 12:58:47 PM EST Transcribed by: PATT OROZCO on TueMar 08, 2019 1:22:21 PM EST Finalized by: BUCK PAUL on TueMar 08, 2019 1:35:11 PM EST Normal [facility] Comment on above: Order Comment: Injur y/Trauma or Illness?:Illness/Other How long have you had these symptoms (acute/chronic)?:Acute Reason for exam?:Pelvic pain since this AM-hx endometiosis - pelvic surgery for cysts History of cancer?:unknown Surgeries, chemotherapy, or radiation?:pelvic-endometriosis Type of Exam?:Ongoing Additional signs and symptoms?:no Appearance (U) Enlarged globular appearance of the [...] Dr. JEAN-CLAUDE GANNON on 03/08/2019 at 12:58. [employer] Workstation ID: [id number] [employer] [facility], Rad In Fu ji Speechq - 03/08/2019 1:37 PM EST [...] Dr. JEAN-CLAUDE GANNON on 03/08/2019 at 12:58. [employer] Workstation ID: [id number] [facility] EXAMINATION: US PELV IC TRANSVAGINAL WITH COLOR [...] ovary. No free fluid in the pelvis. [facility] Urine Pregnancyon 03-08-2019 HCG ( test) Ql (U) Negative Negative [facility] Interpretation and review of laboratory results Normal [facility] Basic Metabolic Panelon 05-0 Calcium mass conc 9.2 mg/dL Normal 8.2-10.2 [facility] Comment on above: Performed By: #### D DIMER, CBC, BMP, CK, CKMB, TROP #### [facility] [address] Chloride molar conc 106 mmol/L Normal 95-114 [facility] Comment on above: Performed By: #### D DIMER, CBC, BMP, CK, CKMB, TROP #### [address] CO2 molar conc 23.4 mmol/L Normal 22.0-30.0 [facility] Comment on above: Performed By: #### D DIMER, CBC, BMP, CK, CKMB, TROP #### [address] Creatinine mass conc 0.70 mg/dL Normal 0.44-1.03 [facility] Comment on above: Performed By: #### D DIMER, CBC, BMP, CK, CKMB, TROP #### [address] Creatinine mass conc 98.6683743622 mg/dL Normal [facility] Comment on above: Result Comment: PERF ORMED BY: [place] [address] PATHOLOGIST TECHNICAL SALES ADVISOR SHERYL NOLAND M.D. Performed By: #### D DIMER, CBC, BMP, CK, CKMB, TROP #### [address] Estimated GFR ( Margaret > 60 Normal [facility] Comment on above: Result Comment: GFR estimated reference range: According to KDOQI guidelines, <60 ml/min/1.73m2 is sufficient to diagnose a patient with chronic kidney disease. Performed By: #### D DIMER, CBC, BMP, CK, CKMB, TROP #### [address] Estimated GFR (Non- Am > 60 Normal [facility] Comment on above: Performed By: #### D DIMER, CBC, BMP, CK, CKMB, TROP #### [address] Glucose mass conc 91 mg/dL Normal 70-100 [facility] Comment on above: Result Comment: [place] Glucose Reference Range is dependent on time and content of last meal. Glucose of more than 200 mg/dL in a nonstressed, ambulatory subject supports the diagnosis of Diabetes Mellitus. ADA recommended reference range Performed By: #### D DIMER, CBC, BMP, CK, CKMB, TROP #### [address] Potassium molar conc 3.4 mmol/L Low 3.5-5.1 [facility] Comment on above: Performed By: #### D DIMER, CBC, BMP, CK, CKMB, TROP #### [address] Sodium molar conc 142 mmol/L Normal 136-146 [facility] Comment on above: Performed By: #### D DIMER, CBC, BMP, CK, CKMB, TROP #### [address] Urea nitrogen mass conc 3 mg/dL Low 9-23 [facility] Comment on above: Performed By: #### D DIMER, CBC, BMP, CK, CKMB, TROP #### [address] Complete Blood Count Auto Di ffon 06-14-2018 Basophils #/vol (Bld) 0.0 10*3/uL Normal 0.0-0.2 [facility] Comment on above: Result Comment: PERF ORMED BY: [place] [address] PATHOLOGIST TECHNICAL SALES ADVISOR SHERYL NOLAND M.D. Performed By: #### D DIMER, CBC, BMP, CK, CKMB, TROP #### [address] Basophils/100 WBC (Bld) 0.2 % Normal . [facility] Comment on above: Performed By: #### D DIMER, CBC, BMP, CK, CKMB, TROP #### [address] Eosinophils #/vol (Bld) 0.1 10*3/uL Normal 0.0-0.45 [facility] Comment on above: Performed By: #### D DIMER, CBC, BMP, CK, CKMB, TROP #### [address] Eosinophils/100 WBC (Bld) 0.8 % Normal . [facility] Comment on above: Performed By: #### D DIMER, CBC, BMP, CK, CKMB, TROP #### [address] Erythrocyte distribution width Ratio (RBC) 14.4 % Normal 11.9-15.3 [facility] Comment on above: Performed By: #### D DIMER, CBC, BMP, CK, CKMB, TROP #### [address] Hematocrit Volume Fraction (Bld) 39.3 % Normal 34.0-46.4 [facility] Comment on above: Performed By: #### D DIMER, CBC, BMP, CK, CKMB, TROP #### [address] Hemoglobin mass conc (Bld) 13.3 g/dL Normal 11.8-15.4 [facility] Comment on above: Performed By: #### D DIMER, CBC, BMP, CK, CKMB, TROP #### [address] Lymphocytes #/vol (Bld) 2.0 10*3/uL Normal 1.00-4.8 [facility] Comment on above: Performed By: #### D DIMER, CBC, BMP, CK, CKMB, TROP #### [address] Lymphocytes/100 WBC (Bld) 22.8 % Normal . [facility] Comment on above: Performed By: #### D DIMER, CBC, BMP, CK, CKMB, TROP #### [address] MCH Entitic mass (RBC) 33.7 g/dL Normal 32.0-35.0 [facility] Comment on above: Performed By: #### D DIMER, CBC, BMP, CK, CKMB, TROP #### [address] MCH Entitic mass (RBC) 29.6 pg Normal 24.7-34.3 [facility] Comment on above: Performed By: #### D DIMER, CBC, BMP, CK, CKMB, TROP #### [address] MCV Entitic volume (RBC) 87.7 fL Normal 80-100 [facility] Comment on above: Performed By: #### D DIMER, CBC, BMP, CK, CKMB, TROP #### [address] Monocytes #/vol (Bld) 0.6 10*3/uL Normal 0.0-0.8 [facility] Comment on above: Performed By: #### D DIMER, CBC, BMP, CK, CKMB, TROP #### [address] Monocytes/100 WBC (Bld) 6.6 % Normal . [facility] Comment on above: Performed By: #### D DIMER, CBC, BMP, CK, CKMB, TROP #### [address] Neutrophils #/vol (Bld) 6.2 10*3/uL Normal 1.8-7.7 [facility] Comment on above: Performed By: #### D DIMER, CBC, BMP, CK, CKMB, TROP #### [address] Neutrophils/100 WBC (Bld) 69.6 % Normal . [facility] Comment on above: Performed By: #### D DIMER, CBC, BMP, CK, CKMB, TROP #### [address] Nucleated RBC/100 WBC Ratio (Bld) 0.1 % Normal 0-0.5 [facility] Comment on above: Performed By: #### D DIMER, CBC, BMP, CK, CKMB, TROP #### [address] Platelet mean volume Entitic volume (Bld) 8.6 fL Normal 6.3-10.7 [facility] Comment on above: Performed By: #### D DIMER, CBC, BMP, CK, CKMB, TROP #### [address] Platelets #/vol (Bld) 225 10*3/uL Normal 150-450 [facility] Comment on above: Performed By: #### D DIMER, CBC, BMP, CK, CKMB, TROP #### [address] RBC #/vol (Bld) 4.49 10*6/uL Normal 3.60-5.00 [facility] Comment on above: Performed By: #### D DIMER, CBC, BMP, CK, CKMB, TROP #### [address] WBC #/vol (Bld) 8.9 10*3/uL Normal 4.5-11.0 [facility] Comment on above: Performed By: #### D DIMER, CBC, BMP, CK, CKMB, TROP #### [address] Creatine Kinaseon 06-14-2018 CK enzyme act/vol 52 U/L Normal 22-269 [facility] Comment on above: Performed By: #### D DIMER, CBC, BMP, CK, CKMB, TROP #### [address] Creatinine Kinase MBon 06-14 CK.MB mass conc 1.5 ng/mL Normal 0.00-2.50 [facility] Comment on above: Performed By: #### D DIMER, CBC, BMP, CK, CKMB, TROP #### [address] CK.MB mass conc 0.8 ng/mL Normal 0.6-6.3 [facility] Comment on above: Performed By: #### D DIMER, CBC, BMP, CK, CKMB, TROP #### [address] D-Dimer High Sensitivityon 0 06-14-2018 D-Dimer High Sensitivity < 200 Normal 0-243 [facility] Comment on above: Result Comment: The [...] patients due to co-morbid conditions. PERFORMED BY: [place] [address] PATHOLOGIST TECHNICAL SALES ADVISOR SHERYL NOLAND M.D. Performed By: #### D DIMER, CBC, BMP, CK, CKMB, TROP #### [address] ECG 12 lead ECGon 06-14-2018 ECG 12 lead ECG [facility] [place] [address] Electrocardiograph Report Signed Patient: Elidia Hill MR#: [id number] 76 : 1990 Acct:[id number] Age/Sex: 28 / F ADM Date: 06/14/18 Loc: ER Room: Type: [facility] ER Attending Dr: Ordering [...] Siri Pinedo MD 06/14/181919 Signed By: 06/14/18 8740 Normal [facility] Troponin I(TnI)on 06-14-2018 Troponin I.cardiac mass conc ng/mL Normal 0-0.02 [facility] Comment on above: Result Comment: EVANGELIST[place] Cut off value > or equal to 0.03 ng/mL in conjunction with clinical conditions of myocardial infarction. (www.escardio.org/guidelines) PERFORMED BY: [place] [address] PATHOLOGIST TECHNICAL SALES ADVISOR SHERYL NOLAND M.D. Performed By: #### D DIMER, CBC, BMP, CK, CKMB, TROP #### [address] XR chest 2V*on 06-14-2018 XR chest 2V* [facility] [place] [address] [place] [address] XRay Report Signed Patient: Elidia Hill MR#: [id number] 76 : 1990 Acct:[id number] Age/Sex: 28 / F ADM Date: 06/14/18 Loc: ER Room: Type: [facility] ER Attending Dr: Ordering Provider: Siri [...] Riki Mack M.D.06/14/2018 8:08 PM Dictation Location: [id number] Transcribed By: HOWARD 06/14/182007 Dictated By: Riki Mack DO 06/14/182001 Signed By: 06/14/182007 [facility] XR chest 2V*on 05-18-2018 XR chest 2V* [facility] [place] [address] [place] [address] XRay Report Signed Patient: Elidia Hill MR#: [id number] : 1990 Acct:[id number] Age/Sex: 28 / F ADM Date: 05/18/18 Loc: DUC Room: Type: [facility] Attending Dr: Ranjana SCHULTZ Ordering Provider: Ranjana [...] Miranda Jr., M.D.05/18/2018 5:42 PM Dictation Location: [facility] Transcribed By: HOWARD 05/18/18 174 Dictated By: Buck Miranda MD 05/18/18 1738 Signed By: 05/18/18 174 [facility] Vital Signs Date Time Vital Sign Value Performing Clinician Richardi janes 03-08-2019 21:22-0500 Body Temperature 98.49 [degF] [facility] 03-08-2019 21:22-0500 BP Diastolic 80 mm[Hg] Jean-Claude [facility] 03-08-2019 21:22-0500 BP Systolic 122 mm[Hg] Jean-Claude Egky [facility] 03-08-2019 21:22-0500 Pulse (Heart Rate) 96 /min Jean-Claudekeisha Gannon [facility] 03-08-2019 21:22-0500 Pulse Oximetry 95 % Jean-Claudekeisha Gannon [facility] 03-08-2019 21:22-0500 Respiratory Rate 14 /min Jean-Claudekeisha Gannon [facility] 03-08-2019 16:27-0500 BMI (Body Mass Index) 23.9 kg/m2 [facility] 16:27-0500 Body weight 61.2 kg Jean-Claudekeisha Gannon [facility] 03-08-2019 16:27-0500 Height 160 cm [facility] Encounters Encounter Date Encounter Type Care Provider [...] ARMANI CABRAL . Facility:[facility] Start: 06-24-2021 End: 06-25-[address] ARMANI CABRAL . Facility:[facility] Start: 06-09-2021 End: 06-10-[address] ARMANI CABRAL . Facility:[facility] Start: 03-08-2019 End: 03-08-2019 Patient encounter procedure PROVIDER NOT IN SYSTEM [facility] Start: 03-08-2019 End: 03-08-2019 Emergency department patient visit Jean-Claude Gannon Work Phone: [facility] Obstetrics Comment on above: Torsion of left ovar y and ovarian pedicle (Primary Dx); Left ovarian cyst Procedures Date Procedure Procedure Detail Performing Clinician Start: 08-13-2021 Extraction of Products of Conception, Low Cervical, Open Approach DR ARMANI CABRAL . Start: 03-08-2019 Transvaginal doppler ultrasonography of pelvis Jean-Claude [facility] Work Phone: Start: 03-08-2019 Choriogonadotropin ( test) [Presence] in Urine Jean-Claude [facility] Work Phone: Start: 03-08-2019 Urinalysis Jean-Claude [facility] Work Phone: Start: 03-08-2019 Basic metabolic 2000 panel - Serum or Plasma Jean-Claude [facility] Work Phone: Start: 03-08-2019 Complete blood count with white cell differential, automated Jean-Claude [facility] Work Phone: Start: 03-08-2019 Complete blood count with white cell differential, manual Jean-Claude [facility] Work Phone: Plan of Treatment Date Care Activity Detail Author Start: 10-08-2018 Influenza vaccination given SE QUENTIAL INFLUENZA VACCINE (#1) [facility] Start: 1993 History and physical examination, annual for health maintenance Wellness Visit [facility] Start: 1990 Screening for malign ant neoplasm of cervix PAP SMEAR [facility] Start: 1990 Tetanus vaccination TETANUS EVERY [address] [facility] Procedure on tissue specimen Tis earle Exam Pathology and Cytology STAT Release Upon Ordering for 1 Occurrences starting 03/08/2019 [facility] Comment on above: Release Upon Orderin g for 1 Occurrences starting 03/08/2019 Payers Date Payer Category Payer Medicaid [id number] 1990 Unknown [id number] 2.16.84 [id number] 1990 Unknown [id number] 2.16.84 [id number] 1990 Unknown [id number] 2.16.84 [id number] 1990 Unknown [id number] 2.16.84 [id number] 1990 Unknown [id number] 2.16.84 [id number] 1990 Unknown [id number] 2.16.84 [id number] 1990 Unknown [id number] 2.16.84 [id number] 1990 Unknown [id number] 2.16.84 [id number] 1990 Unknown [id number] 2.16.84 [id number] 1990 Unknown [id number] 2.16.84 [id number] 1990 Unknown [id number] 2.16.84 [id number] 1959 Unknown [id number] Social History Date Type Detail Facility Start: 03-08-2019 Tobacco smoking status NHIS Never sm oker [facility] Start: 03-08-2019 Alcohol intake Lifetime non-d watson (finding) [facility] Start: 03-08-2019 History SDOH Alcohol Frequency 1 [facility] Sex Assigned At Not on file [facility] Medical Equipment Procedure Code Equipment Code Equipment Origin al Text Equipment Identifier Dates Hemostat 1gm Isauro sta - [id number] FDA Start: 03-08-2019 Progress note 04-14-2020 Note Date & Type Note Facility 04-14-2020 Note HNO ID: [id number] Author: Yuli Pulliam Service: ? Author Type: Physician Type: Progress Notes Filed: 04/14/2020 2:04 PM Note Text: Elidia Lema is a 30 year old female who presents for a follow up for endometriosis. HPI: 30yo with hx of endometriosis and CPP Pt travels from [place] and receives primary calenderer care with her local provider. Underwent RA-lsc excision fo merlene in Sep Has been on Lupron post-op [...] which included preparing to see the patient, [id number] patient care, completing clinical documentation and counseling and educating the patient/family/caregiver Medical Decision Making Yuli Pulliam MD [facility] Summary Purpose Family History No Family History Records FoundNo Family History Records FoundNo Family History Records FoundNo Family History Records FoundNo Family History Records FoundNo Family History Records Found Advance Directives No Advanced Directives Records FoundDocuments on File Type Date Recorded Patient Collection Systems Consultant Expl anation Advance Directives and Livin g Will 03/08/2019 11:17 AM History of Present Illness * Pretyt Walker RN - 03/08/2019 9:22 PM EST [...] section and content) DATE CREATED AUTHOR 06/29/[address] [facility] DATE CREATED AUTHOR AUTHOR'S ORGANIZ ATION 03/15/2019 [facility] DATE CREATED AUTHOR AUTHOR'S ORGANIZ ATION 12/04/2020 Alberto Bhardwajus [facility] DATE CREATED AUTHOR AUTHOR'S ORGANIZ ATION 04/01/2021 [facility] DATE CREATED AUTHOR AUTHOR'S ORGANIZ ATION 05/30/2022 [facility] DATE CREATED AUTHOR AUTHOR'S ORGANIZ ATION 07/05/2023 [facility] d[facility] Specialists EPIC Reason for Visit (unrecogniz ed section and content) Reason Comments Pelvic Pain STARTED THIS AM Durga Brewster MD - 03/08/2019 5:26 PM ESTChaDurga marvin MD - 03/08/2019 5:23 PM EST H&P Notes (unrecognized sect ion and content) INTERVAL HISTORY AND PHYSICAL Patient Name: Elidia Hill Admit Date: MR #: [id number] : 1990 The H&P has been reviewed [...] and the risks of general anesthetic including TX, CVA, sudden or even reaction to anesthetic [...] ORDERS FOR MEDS RECEIVED ED PROVIDER NOTE [facility] EMERGENCY DEPARTMENT NAME: Elidia Hill AGE: 29 y.o. : 1990 VISIT DATE: 03/08/2019 CSN: [id number] PCP: Provider Not in System Chief Complaint [...] file Gets together: Not on file Attends [employer] service: Not on file Active member of [...] at [place], Dr. Cabral. After consultation with recessing machine operator on-call, Dr. Brewster patient is admitted under [...] care Follow-up information has not been specified. eJan-Claude Gannon MD 03/08/19 1312 HISTORY OF ENDOMETRIOSIS [...] (29 y.o.) Date of Service: 03/08/2019 CSN: [id number] Procedure(s): Left Ovarian Cystectomy, Lysis of Adhesions Pre-Operative Diagnoses: * Left Ovarian Torsion Post-Operative Diagnoses: Surgeon(s) and Role: * Durga Brewster MD - Primary Anesthesiologist: Pedro Dejesus MD GRIT BLASTER: Radha López CRNA; Shy Ahn CRNA Patient Access Associate: Radha Juan RN; Ara Cervantes RN Scrub [...] Implant Name Type Inv. Item Serial No. Manufacturing Technology Professor Lot No. LRB No. Used Action HEMOSTAT 1GM AMANDA - [id number] HEMOSTAT 1GM AMAN[id number] Left 1 Implanted Drain(s): * No LDAs [...] BE BASED ON THE PRIMARY CLINICAL RECORDS. [employer] provides no warranty or guarantee of the accuracy or completeness of information in this document.
[2023-07-28 06:24] LABS: Basophils Percent Auto 0.3 % (0.2-2.0); Eosinophils Absolute Auto 0.1 10^3/uL (0.0-0.7); Eosinophils Percent Auto 1.6 % (0.9-7.0); Hematocrit 34.7 % (36.0-48.0); Hemoglobin 10.8 g/dL (12.0-16.0); Immature Granulocytes Abs Auto 0.02 10^3/uL (0.00-0.03); Immature Granulocytes Pct Auto 0.3 % (0.0-0.5); Lymphocytes Absolute Auto 2.5 10^3/uL (1.2-3.8); Lymphocytes Percent Auto 34.2 % (20.5-60.0); Mean Corpuscular HGB Conc 31.1 g/dL (29.9-35.2); Mean Corpuscular Hemoglobin 25.3 pg (26.7-34.0); Mean Corpuscular Volume 81.3 fL (81.0-99.0); Mean Platelet Volume 9.7 fL (9.5-13.5); Monocytes Absolute Auto 0.5 10^3/uL (0.3-0.8); Monocytes Percent Auto 7.3 % (1.7-12.0); Neutrophils Absolute Auto 4.2 10^3/uL (1.4-6.5); Neutrophils Percent Auto 56.3 % (43.0-75.0); Platelet Count 238 10^3/uL (150-450); Red Blood Count 4.27 10^6/uL (4.20-5.40); Red Cell Distribution Width 16.5 % (11.0-15.0); White Blood Count 7.4 10^3/uL (4.0-11.0)
[2023-07-28 06:43] LABS: HCG Quantitative <1 mIU/mL
[2023-07-28] MEDS: LACTATED RINGER'S SOLUTION 1,000 ML 50 ML IV (07:12)
--- NOTE | 2023-07-28 08:28 | P.ON_ITS ---
Brief Operative Note Date of procedure: 07/28/23 Pre-op diagnosis general: pelvic pain, menorrhagia, dysmenorrhea, dyspareunia Post-op diagnosis: same as pre-op Procedure: NAME OF PROCEDURE: [ D&c hysteroscopy, diagnostic laparoscopy with lt ovarian cystotomy] finding-obliterated posterior culdesac, lt hemorrhagic cyst PROCEDURE: The patient was taken back to the Operating Room where she was prepped and draped in normal sterile fashion after being placed under general anesthesia without difficulty. She was also placed in the dorsal lithotomy position. A weighted speculum was placed in the patient?s vagina. The anterior lip of the cervix was identified and grasped with a single tooth tenaculum. The patient?s uterus was then sounded roughly to [? 8] cm. The patient was then gently dilated using Hegar dilators. The hysteroscope was passed through the patient?s cervix into the uterus. Both ostia were identified. fluffy appearing endometrium. No gross evidence of malignancy, no gross evidence of polyps or fibroids. gentle currettage was then performed until a gritty texture was noted, The hysteroscope was then removed from the uterus. The endometrial curettings were sent out to pathology. The single tooth tenaculum was then removed from the patient's anterior lip of the cervix where excellent hemostasis was noted. A sponge stick was placed into the patient's vagina. Attention was turned to the patient's abdomen, where a small umbilical incision was made. The fascia was tented using Jimbo clamps and the fascia was entered sharply. Confirmation of intraabdominal placement of the 10 mm port was confirmed under direct visualization using a laparoscope. The patient's abdomen was then insufflated using CO2 gas with approximately 4 liters. A second port was placed left laterally, this was done under direct visualization with a 5 mm port. Survey of the patient's abdomen demonstrated normal liver and gallbladder. Survey of the patient's pelvic anatomy demonstrated normal appearing rt and lt ovary and tubes as well as normal appearing uterus. No endometrial implants could be noted, no evidence of any pelvic disease was seen, normal appearing pelvic cavity. All instruments were removed from the patient's abdomen. The patient's abdomen was deinsufflated of CO2 gas. The patient tolerated the procedure well. Sponge stick was removed from the patient's vagina. The patient's infraumbilical fascia was closed using #0 Vicryl on a GI needle. The patient's skin was closed laterally and infraumbilically using 4-0 Vicryl. The patient tolerated the procedure well. Sponge, lap and needle counts were correct x 2. The patient was taken to Recovery Room in stable condition. Anesthesia: GEOVANNYA Surgeon: Bhupendra Painter Learning And Development Associate: Pretty Hudson Estimated blood loss (mL): 5 Pathology: other (ovarian cyst fluid, endometrial currettings) Condition: stable Disposition: PACU Urinary Catheter Management Urinary Catheter Management Urethral: Cath placed during this visit: no
[2023-07-28] MEDS: HYDROMORPHONE HCL 0.5 MG/0.5 ML SYRINGE IV ×2 (08:50→08:59)
[2023-07-28] MEDS: PROMETHAZINE HCL 12.5 MG in 0.9 % SODIUM CHLORIDE 50 ML 202 MG IV (09:04)
--- NOTE | 2023-07-28 09:10 | PC.NURSE ---
0904 pt given 12.5mg IV piggyback Phenergan,pt actively vomiting at this time.
--- NOTE | 2023-07-28 09:19 | PC.NURSE ---
0915: scant amount of bloody drainage noted to rafiq-pad
[2023-07-28] MEDS: LACTATED RINGER'S SOLUTION 1,000 ML 150 ML IV (09:26)
--- NOTE | 2023-07-28 09:29 | PC.NURSE ---
0929; pt voices that nausea is no longer present
[2023-07-28] MEDS: HYDROCODONE/ACET 5-325 MG TABLET 1 TAB PO (10:01)
== END 2023-07-28 11:04 | disposition home or self-care (01) ==
PROVIDERS: PCP Family Medicine; Visit Provider Obstetrics & Gynecology
PROC: (CPT 840; principal; 2023-07-28 07:30)
DX: N83.202 Unspecified ovarian cyst, left side (principal); R10.2 Pelvic and perineal pain; N80.9 Endometriosis, unspecified; N92.0 Excessive and frequent menstruation with regular cycle
CPT/HCPCS: 58558; 58662; 36415; 84702; 85025; 88112; 88305; 88307; 99999; J0131; J1100; J1170; J1885; J2250; J2405; J2704; J3010

== ENCOUNTER 2024-02-14 09:27 | Outpatient (OUT) | payer OTHER, SELFPAY ==
[2024-02-14 10:11] LABS: Basophils Percent Auto 0.3 % (0.2-2.0); Eosinophils Percent Auto 0.5 % (0.9-7.0); Hematocrit 35.6 % (36.0-48.0); Hemoglobin 10.9 g/dL (12.0-16.0); Immature Granulocytes Abs Auto 0.02 10^3/uL (0.00-0.03); Immature Granulocytes Pct Auto 0.3 % (0.0-0.5); Lymphocytes Absolute Auto 1.6 10^3/uL (1.2-3.8); Lymphocytes Percent Auto 25.3 % (20.5-60.0); Mean Corpuscular HGB Conc 30.6 g/dL (29.9-35.2); Mean Corpuscular Hemoglobin 23.8 pg (26.7-34.0); Mean Corpuscular Volume 77.7 fL (81.0-99.0); Mean Platelet Volume 9.8 fL (9.5-13.5); Monocytes Absolute Auto 0.4 10^3/uL (0.3-0.8); Monocytes Percent Auto 6.9 % (1.7-12.0); Neutrophils Absolute Auto 4.1 10^3/uL (1.4-6.5); Neutrophils Percent Auto 66.7 % (43.0-75.0); Platelet Count 300 10^3/uL (150-450); Red Blood Count 4.58 10^6/uL (4.20-5.40); Red Cell Distribution Width 16.9 % (11.0-15.0); White Blood Count 6.2 10^3/uL (4.0-11.0)
[2024-02-14 10:16] LABS: Free T4 0.89 ng/dL (0.76-1.46)
[2024-02-14 10:20] LABS: Thyroid Stimulating Hormone 1.491 uIU/mL (0.358-3.740)
[2024-02-14 10:21] LABS: HCG Quantitative <1 mIU/mL
[2024-02-14 10:25] LABS: Estimated Average Glucose 105 mg/dL; Glycohemoglobin A1C 5.3 % (4.5-6.2)
[2024-02-15 04:08] LABS: FSH 7.5 mIU/mL (.); Luteinizing Hormone(LH) 20.4 mIU/mL (.)
[2024-02-16 23:07] LABS: Anti-Mullerian Hormone (AMH) 0.569 ng/mL (.)
[2024-02-17 07:09] LABS: DHEA, Serum 219 ng/dL (31-701)
== END 2024-02-14 09:28 | disposition home or self-care (01) ==
LOC: LAB 09:31
PROVIDERS: PCP Family Medicine; Visit Provider Obstetrics & Gynecology
DX: E28.2 Polycystic ovarian syndrome (principal); N92.6 Irregular menstruation, unspecified
CPT/HCPCS: 36415; 82397; 82626; 82627; 83001; 83002; 83036; 84439; 84443; 84702; 85025

== ENCOUNTER 2024-07-03 14:41 | Outpatient (OUT) | payer OTHER, MEDICAID, SELFPAY ==
[2024-07-03 15:26] LABS: Basophils Percent Auto 0.4 % (0.2-2.0); Eosinophils Percent Auto 0.6 % (0.9-7.0); Hemoglobin 8.9 g/dL (12.0-16.0); Immature Granulocytes Abs Auto 0.01 10^3/uL (0.00-0.03); Immature Granulocytes Pct Auto 0.1 % (0.0-0.5); Lymphocytes Percent Auto 28.1 % (20.5-60.0); Mean Corpuscular HGB Conc 30.7 g/dL (29.9-35.2); Mean Corpuscular Hemoglobin 22.4 pg (26.7-34.0); Mean Corpuscular Volume 72.9 fL (81.0-99.0); Mean Platelet Volume 9.8 fL (9.5-13.5); Monocytes Absolute Auto 0.6 10^3/uL (0.3-0.8); Monocytes Percent Auto 8.3 % (1.7-12.0); Neutrophils Absolute Auto 4.5 10^3/uL (1.4-6.5); Neutrophils Percent Auto 62.5 % (43.0-75.0); Platelet Count 323 10^3/uL (150-450); Red Blood Count 3.98 10^6/uL (4.20-5.40); White Blood Count 7.2 10^3/uL (4.0-11.0)
--- OUTSIDE RECORDS SUMMARY | 2024-07-03 18:37 | XMS_ITS | CCD ---
Author Organization [facility] CliniSyid Care Team Providers Care Sorter Lumber Straightener Name Role Phone System, Provider Not In Primary Care Provider Un available SYSTEM, PROVIDER NOT IN Primary Care Unavaila ble DURGA BREWSTER Consulting Unavailabl e IMANI, DURGA NAVARRO Attending Unavailabl e CHAMBERSDURGA Admitting Unavailabl e KARASIK ., DR LOMELI Attending Unavailabl e [facility], [facility] Primary Care Unavailable KARASIK ., DR LOMELI Consulting Unavailabl e KARASIK ., DR LOMELI Admitting Unavailabl e ZIEBER, DR MELISSA Perez Consulting Unavailable KARASIK ., DR LOMELI Consulting Unavailabl e KARASIK ., DR LOMELI Admitting Unavailabl e KARASIK ., DR LOMELI Attending Unavailabl e REQUEST, DR GROVER HINES Primary Care Unavaila ble KARASIK ., DR LOMELI Attending Unavailabl e KARASIK ., DR LOMELI Consulting Unavailabl e KARASIK ., DR LOMELI Admitting Unavailabl e NADERER, DR RILEY Kulkarni Primary Care Unavailable KARASIK ., DR LOMELI Attending Unavailabl e [facility] Primary Care Unavailable KARASIK ., DR LOMELI Admitting Unavailabl e KARASIK ., DR LOMELI Procedure Practitioner Loretta vailable KARASIK ., DR LOMELI Consulting Unavailabl e INOCENCIO ., DR NORMAN Consulting Unavailable ZIEBER, DR MELISSA Perez Consulting Unavailable ZEKE CONKLIN Consulting Unavailable MELISSA MEJIA Consulting Unavailable ABENA, DR FUAD Perez Consulting Unavailable ABENA, DR FUAD Perez Admitting Unavailable SHARMAINE, MAYRA Primary Care Unavailable ABENA, DR FUAD Perez Attending Unavailable SHER THORPE Consulting Unavailable SHER THORPE Admitting Unavailable SHER THORPE Attending Unavailable [facility] Primary Care Unavailable [facility] Primary Care Unavailable KARASIK ., DR LOMELI Attending Unavailabl e KARASIK ., DR LOMELI Admitting Unavailabl e [facility] Primary Care Unavailable KARASIK ., DR LOMELI Admitting Unavailabl e KARASIK ., DR LOMELI Attending Unavailabl e KARASIK ., DR LOMELI Attending Unavailabl e [facility] Primary [facility] Unavailable KARASIK ., DR LOMELI Consulting Unavailabl e KARASIK ., DR LOMELI Admitting Unavailabl e Inocencio, Bhupendra Attending Provider Miriam Paintery Admitting Unavailable Inocencio, Bhupendra Attending Unavailable Riley Lackey MD Primary Care Provider RADHA VALENTIN Attending Unavailable INOCENCIO, BHUPENDRA Attending Unavailable INOCENCIO, BHUPENDRA Attending Unavailable INOCENCIO, BHUPENDRA Attending Unavailable INOCENCIO, BHUPENDRA Referring Unavailable Riley Lackey MD Primary Care Provider Allergies Allergy Classification Reported Allergen(s) Allergy Type Date of Onset Reaction(s) Facility (5 sources) Codeine Drug Allergy 3 GI Intolerance [facility] (9 sources) Penicillins; Translations: [Unknown] Propensity to adverse reactions to drug 3 Anaphylaxis [facility] (2 sources) Sulfonamides (Antibiotic); Translations: [Sulfa (Sulfonamide Antibiotics)] Propensity to adverse reactions to drug [facility] (1 source) Codeine Drug Allergy 3 [facility] (1 source) Sulfonamides (Antibiotic) Drug allergy (disorder) 3 [facility] (4 sources) Penicillin G Drug Allergy 4 [facility] Work Phone: (5 sources) Sulfonamides (Antibiotic) Drug Intolerance 0 [facility] Medications Current Medications Medication Drug Class(es) Dates Sig (Normalized) Sig (Original) acetaminophen 500 mg oral tablet (3 sources) take 2 tablets by mouth every four hours as needed for pain acetaminophen (Tylenol) 500 MG tablet Take 1,000 mg by mouth every 4 (four) hours if needed for mild pain Active acetaminophen 325 mg / HYDROcodone bitartrate 5 mg oral tablet (5 sources) Opioid Agonist Start: 07-28-2023 End: 02-14-2024 take 1 tablet by mouth every four hours HYDROcodone-acetami nophen ([place]) 5-325 MG tablet TAKE 1 TABLET BY MOUTH EVERY 4 HOURS 07/28/2023 02/14/2024 Discontinued Start: 03-08-2019 End: 03-09-2019 take 1 tablet by mouth every four hours as needed HYDROcodone-acetaminophen (NORCO) 5-325 mg per tablet 1 tablet [...] . 18 tablet 0 03/08/2019 03/11/2019 Active ibuprofen 100 mg oral tablet (4 sources) Nonsteroidal Anti-inflammatory Drug ibuprofen (Motrin ) 100 MG tablet Take 800 mg by mouth PRN Active medroxyPROGESTERone acetate 10 mg oral tablet (3 sources) Progestin Star t: 08-26 25 End: 08-26 26 take 1 tablet by mouth once daily medroxyPROGESTERone (Provera) 10 MG tablet Indications: Irregular bleeding , PCOS (polycystic ovarian syndrome) Take 1 tablet (10 mg) by mouth Daily Take 1 tablet by mouth daily for 7 days beginning on day 16 of the menstrual cycle. 14 tablet 3 02/14/2024 02/13/2025 Active multivitamin (Theragran) tablet (3 sources) take 1 tablet by mouth once daily multivitamin (Theragran) tablet Take 1 tablet by mouth Daily Active ondansetron 4 mg oral tablet (9 sources) Serotonin-3 Receptor Antagonist Star t: 07-09 0 24 End: 08-26 25 take 1 tablet by mouth every six hours as needed for nausea and vomiting and nausea and nausea ondansetron (Zofran) 4 MG tablet Indications: Nausea Take 1 tablet (4 mg) by mouth every 6 (six) hours if needed for nausea or vomiting for up to 120 doses Take 1 tablet by mouth every 6 hours as needed for nausea. 30 tablet 3 07/28/2023 02/14/2024 Discontinued Start: 03-08-2019 End: 03-09-2019 take 4 mg intravenous route every six hours as needed ondansetron (ZOFRAN) injection 4 mg ondansetron (Zof ran) 4 MG tablet Take by mouth every 8 (eight) hours if needed for nausea or vomiting Active Vit-Fe Fumarate-FA ( Vitamins) 28-0.8 MG tablet (3 sources) Start: 02-14-2024 End: 02-13-2025 take 1 tablet by mouth once daily Vit-Fe Fumarate-FA ( Vitamins) 28-0.8 MG tablet Indications: Irregular bleeding , PCOS (polycystic ovarian syndrome) Take 1 tablet by mouth Daily 30 tablet 11 02/14/2024 02/13/2025 Active vitamin with Ca-Iron-FA 27-1 mg Tab (1 source) take 1 tablet by mouth once daily vitamin with Ca-Iron-FA 27-1 mg Tab Take 1 tablet by mouth daily . 0 Active Completed/Discontinued Medications Medication Drug Class(es) Dates Sig (Normalized) Sig (Original) calcium chloride 0.0014 meq/ml / potassium chloride [...] mg 1 ml ketorolac tromethamine 30 mg/ml cartridge (2 sources) Nonsteroidal Anti-inflammatory Drug, Cyclooxygenase Inhibitor Start: 06-27-2024 End: 06-27-2024 30 mg, IntraVENous, ONCE, 1 dose, On Tue06/27/24 at 0900, Do not administer for more than 5 days. Start: 03-08-2019 End: 03-08-2019 ketorolac (TORADOL) injectio [...] End: 03-09-2019 naloxone (NARCAN) injection 0.1 mg Problems Active Problems Problem Classification Problem Date Documented Date Episodic/Chronic Endometriosis (4 sources) Endometriosis (clinical); Translations: [Endometriosis, unspecified] Onset: 03-17-2023 03-17-2023 Chronic Menstrual disorders (2 sources) Irregular periods; Translations: [Irregular menstruation, unspecified] 02-14-2024 Chronic Mood disorders (4 sources) Mood disorders; Translations: [DEPRESSION UNSPECIFIED] Onset: 05-25-2022 Other endocrine disorders (2 sources) Polycystic ovary syndrome; Translations: [Polycystic ovarian syndrome] 02-14-2024 Chronic Other female genital disorders (1 source) Vaginal bleeding; Translations: [Abnormal uterine and vaginal bleeding, unspecified] 06-27-2024 Chronic Other female genital disorders (1 source) Torsion of ovary; Translations: [Torsion of left ovary and ovarian pedicle] Episodic Ovarian cyst (1 source) Cyst of left ovary; Translations: [Left ovarian cyst] Personality disorders (4 sources) Chronic depression; Translations: [Chronic depressive disorder] Onset: 03-17-2023 03-17-2023 Chronic Unclassified (1 source) CONTACT W/AND (SUSP) EXPOS [...] Test Name Value Interpretation Reference Range Facility Basic Metabolic Panelon 06-08 Anion gap [Moles/Vol] 11 mmol/L 9 - 16 mmol/L [facility] Calcium [Mass/Vol] 8.3 mg/dL Low 8.6 - 10. 4 mg/dL [facility] Chloride [Moles/Vol] 104 mmol/L 98 - 10 7 mmol/L [facility] CO2 [Moles/Vol] 23 mmol/L 20 - 31 mmol/L [facility] Creatinine [Mass/Vol] 0.7 mg/dL 0.50 - 0.90 mg/dL [facility] Est, Glojustyna Gaot Rate - PINF [facility] Comment on above: These results are not intended for use in patients <18 years of age. eGFR results are calculated without a race factor using the 2020 CKD-EPI equation. Careful clinical correlation is recommended, particularly when comparing to results calculated using previous equations. The CKD-EPI equation is less accurate in patients with extremes of muscle mass, extra-renal metabolism of creatine, excessive creatine ingestion, or following therapy that affects renal tubular secretion. Glucose [Mass/Vol] 90 mg/dL 74 - 99 mg/dL [facility] Interpretation and review of laboratory results Abnormal [facility] Potassium [Moles/Vol] 3.5 mmol/L Low 3.7 - 5.3 mmol/L [facility] Sodium [Moles/Vol] 138 mmol/L 136 - 145 mmol/L [facility] Urea nitrogen [Mass/Vol] 8 mg/dL 6 - 20 mg/dL [facility] Urea nitrogen/Creatinine [Mass ratio] 11 mg/mg 9 - 20 [facility] CBC with Auto Differentialon 06-27-2024 Basophils (Bld) [#/Vol] 0.04 10*3/uL [facility] Basophils/100 WBC (Bld) 1 % 0 - 2 % [facility] Eosinophils (Bld) [#/Vol] 0.06 10*3/uL [facility] Eosinophils/100 WBC (Bld) 1 % 1 - 4 % [facility] Erythrocyte distribution width (RBC) [Ratio] 19.2 % High 11.8 - 14.4 % [facility] Hematocrit (Bld) [Volume fraction] 29.2 % Low 36.3 - 47.1 % [facility] Hemoglobin (Bld) [Mass/Vol] 8.8 g/dL Low 11.9 - 15.1 g/dL [facility] Immature granulocytes (Bld) [#/Vol] [facility] Immature granulocytes/100 WBC (Bld) 0 % 0 [facility] Interpretation and review of laboratory results Abnormal [facility] Lymphocytes/100 WBC (Bld) 36 % 24 - 43 % [facility] Lymphocytes/100 WBC (Bld) 2.12 % [facility] MCH (RBC) [Entitic mass] 22.5 pg Low 25.2 - 33.5 pg [facility] MCHC (RBC) [Mass/Vol] 30.1 g/dL 28.4 - 34.8 g/dL [facility] MCV (RBC) [Entitic vol] 74.7 fL Low 82.6 - 102.9 fL [facility] Monocytes/100 WBC (Bld) 10 % 3 - 12 % [facility] Monocytes/100 WBC (Bld) 0.59 % [facility] Neutrophils/100 WBC (Bld) 52 % 36 - 65 % [facility] Nucleated RBC/100 WBC (Bld) [Ratio] 0 % 0.0 per 100 WBC [facility] Platelet mean volume (Bld) [Entitic vol] 9.5 fL 8.1 - 13.5 fL [facility] Platelets (Bld) [#/Vol] 256 10*3/uL [facility] RBC (Bld) [#/Vol] 3.91 10*6/uL Low 3.95 - 5.1 1 m/uL [facility] Segmented neutrophils/100 WBC (Bld) 3.12 % [facility] WBC other (Bld) [#/Vol] 6 [facility] HCG Qualitative, Serumon HCG ( test) Ql Negative NEGATIVE [facility] Comment on above: Specimens with hCG l evels near the threshold of the test (25 mIU/mL) may give a negative or indeterminate result. In such cases, another test should be performed with a new specimen in 48-72 hours. If early is suspected clinically in this setting, correlation with quantitative serum b-hCG level is suggested. [email or web address] has confirmed the use of plasma for this test. This has not been cleared or approved by the U.S. Food and Drug Administration. The FDA has determined that such clearance is not necessary. [facility] TYPE AND SCREENon 06-27-2024 ABO and Rh group Nom (Bld) Blood group O Rh(D) negative [facility] Arm Band Number [id number] [facility] Blood Bank Sample Expiration 06/30/2024,2359 [facility] Blood group antibodies identified Nom Negative [facility] US Pelvis transabdominal and transvaginalon 06-27-2024 Fibroid uterus. Normal Doppler flow within the ovaries. [facility] RIS CONSOLIDATED EXAMINATION: TRANSABDOMINAL AND TRANSVAGINAL ULTRASOUND OF THE PELVIS WITH COLOR DOPPLER FLOW EVALUATION 06/27/2024 TECHNIQUE: Transabdominal and transvaginal pelvic Duplex ultrasound using B-mode/aldridge scaled imaging, Doppler spectral analysis and color flow Doppler was obtained. COMPARISON: None HISTORY: ORDERING SYSTEM PROVIDED HISTORY: heavy vaginal bleeding; hx of endometriosis TECHNOLOGIST PROVIDED HISTORY: heavy vaginal bleeding; hx of endometriosis FINDINGS: Measurements: Uterus: 9.1 x 6.3 x 5.0 cm Endometrial stripe: 14.5 mm Right Ovary:3.9 x 3.2 x 2.6 cm Left Ovary: 3.6 x 2.3 x 1.6 cm Ultrasound Findings: Uterus: Uterine fibroid noted measuring approximately 1.9 x 2.1 x 1.1 cm, this appears to be in the mid uterus, fundal in location with submucosal predominance. Endometrial stripe: Endometrial stripe is within normal limits. Right Ovary: Right ovary is within normal limits. There is normal arterial and venous Doppler flow. Left Ovary: Left ovary is within normal limits. There is normal arterial and venous Doppler flow. Free Fluid: No evidence of free fluid. [facility] Asad Segundo MD - 06/27/2024 EXAMINATION: TRANSABDOMINAL AND TRANSVAGINAL ULTRASOUND OF THE PELVIS WITH COLOR DOPPLER FLOW EVALUATION 06/27/2024 TECHNIQUE: Transabdominal and transvaginal pelvic Duplex ultrasound using B-mode/aldridge scaled imaging, Doppler spectral analysis and color flow Doppler was obtained. COMPARISON: None HISTORY: ORDERING SYSTEM PROVIDED HISTORY: heavy vaginal bleeding; hx of endometriosis TECHNOLOGIST PROVIDED HISTORY: heavy vaginal bleeding; hx of endometriosis FINDINGS: Measurements: Uterus: 9.1 x 6.3 x 5.0 cm Endometrial stripe: 14.5 mm Right Ovary:3.9 x 3.2 x 2.6 cm Left Ovary: 3.6 x 2.3 x 1.6 cm Ultrasound Findings: Uterus: Uterine fibroid noted measuring approximately 1.9 x 2.1 x 1.1 cm, this appears to be in the mid uterus, fundal in location with submucosal predominance. Endometrial stripe: Endometrial stripe is within normal limits. Right Ovary: Right ovary is within normal limits. There is normal arterial and venous Doppler flow. Left Ovary: Left ovary is within normal limits. There is normal arterial and venous Doppler flow. Free Fluid: No evidence of free fluid. IMPRESSION: Fibroid uterus. Normal Doppler flow within the ovaries. [employer] Radiology Study observation (narrative) [facility] [employer] US Pelvis transabdominal and transvaginalOrdered By: Asad Pisano on 06-27-2024 [employer] Work Phone: Urinalysis with Microscopico n 06-27-2024 Bacteria LM Ql (Urine sed) 1+ Abnormal None [employer] Bilirubin Ql (U) Negative NEGATIVE [facility] [employer] Clarity (U) Clear Clear [facility] [employer] Color (U) Yellow Yellow [employer] [facility] Epithelial cells LM.HPF (Urine sed) [#/Area] 2 TO 5 [employer] Glucose Test strip (U) [Mass/Vol] Negative NEGATIVE mg/dL [employer] Hemoglobin Auto test strip Ql (U) 3+ Abnormal NEGATIVE [facility] Interpretation and review of laboratory results Abnormal [facility] Ketones (U) [Mass/Vol] Negative NEGAT [facility] mg/dL [facility] Leukocyte esterase Test strip Ql (U) Negative NEGATIVE [facility] Nitrite Ql (U) Negative NEGATIVE [facility] pH (U) 7 [pH] 5.0 - 9.0 [facility] Protein (U) [Mass/Vol] 2+ Abnormal NEGAT [facility] mg/dL [facility] RBC LM.HPF (Urine sed) [#/Area] 100 /[HPF] [facility] Specific gravity (U) [Rel density] 1.02 1.010 - 1.020 [facility] Urobilinogen Qn (U) Normal 0.0 - 1. 0 EU/dL [facility] WBC LM.HPF (Urine sed) [#/Area] 2 TO 5 [facility] ALL CBC WITH AUTO DIFFon BASOPHILS ABSOLUTE AUTO 0 [facility] Basophils/100 WBC (Bld) 0.3 % 0.2 - 2.0 % [facility] Eosinophils/100 WBC (Bld) 0.5 % Low 0.9 - 7.0 % [facility] Erythrocyte distribution width (RBC) [Ratio] 16.9 % High 11.0 - 15.0 % [facility] Hematocrit (Bld) [Volume fraction] 35.6 % Low 36.0 - 48.0 % [facility] Hemoglobin (Bld) [Mass/Vol] 10.9 g/dL Low 12.0 - 16.0 g/dL [facility] IMMATURE GRANULOCYTES ABS AUTO 0.02 [facility] Immature granulocytes/100 WBC (Bld) 0.3 % 0.0 - 0.5 % [facility] Interpretation and review of laboratory results Abnormal [facility] LYMPHOCYTES ABSOLUTE AUTO 1.6 [facility] Lymphocytes/100 WBC (Bld) 25.3 % 20.5 - 60.0 % [facility] MCH (RBC) [Entitic mass] 23.8 pg Low 26.7 - 34.0 pg [facility] MCHC (RBC) [Mass/Vol] 30.6 g/dL 29.9 - 35.2 g/dL [facility] MCV (RBC) [Entitic vol] 77.7 fL Low 81.0 - 99.0 fL [facility] MONOCYTES ABSOLUTE AUTO 0.4 [facility] Monocytes/100 WBC (Bld) 6.9 % 1.7 - 12.0 % [facility] NEUTROPHILS ABSOLUTE AUTO 4.1 [facility] Neutrophils/100 WBC (Bld) 66.7 % 43.0 - 75.0 % [facility] Platelet mean volume (Bld) [Entitic vol] 9.8 fL 9.5 - 13.5 fL [facility] TBH EO # 0 [facility] TB PLT 300 [facility] TBH RBC 4.58 [facility] TBH WBC 6.2 [facility] CLINISYNC [facility] US PELVIC COMPLETE W/ TVon 0 02-14-2024 US PELVIC COMPLETE W/ TV TITLE OF EXAM: US PELVIC COMPLETE W/ TV REASON FOR EXAM: PCOS, endometriosis TECHNIQUE: Grayscale, color, and spectral Doppler ultrasound evaluation of the pelvis. COMPARISON: None. FINDINGS: Measurements: Uterus: 8.6 x 4.6 x 6.4 cm, volume 132 mL Endometrial thickness: 7 mm Right ovary: 3.6 x 2.1 x 3.7 cm, volume 14.7 mL Left ovary: 3.2 x 2.8 x 3.0 cm, volume 14.3 mL The uterus is anteverted. Ovoid heterogeneously hypoechoic somewhat ill-defined vascular lesion arising from what appears to be the anterior fundal myometrium measures 1.7 x 2.1 x 2.4 cm. The endometrial stripe is normal in thickness for early proliferative through secretory phases. The right ovary demonstrates several small follicles and/or simple appearing cysts. Normal low resistance arterial inflow on color and pulsed Doppler. The left ovary demonstrates several small follicles and/or simple appearing cysts. A single dominant simple appearing cystic lesion that measures up to 1.9 cm. Normal low resistance arterial inflow on color and pulsed Doppler. Physiologic volume/distribution free fluid in the pelvis. No concerning adnexal mass visualized. IMPRESSION: 1. Several small simple appearing cystic lesions and/or follicles arising from both ovaries, the largest measuring up to 1.9 cm. 2. Nonspecific uterine fundal mass measuring up to 2.4 cm favors a leiomyoma. If clinically warranted, this mass could be reevaluated for stability sonographically, perhaps in 3 to 6 months, preferably at a different phase of the patient's menstrual cycle. DICTATED ON: 02/21/2024 10:39 AM This report has been electronically signed and approved by the interpreting radiologist. Normal Not Available Comment on above: Order Comment: US PE LVIS-TRANSVAG IF INDICATED Patient's last menstrual period was 2024. Enzo 07-28-2023 L Specimen: [id number] Received: 07/28/23 Status: MARCBlack Ridley Num: [id number] Spec Type: Surgical Subm Dr: Bhupendra Painter Tissues: A Endometrium - Curettings ([facility]) Procedures: HE/2, Gross/Micro L4 Age/ Patient Sex Location Account Attending Physician Elidia Lema 33/F LABELL [id number] Bhupendra Painter SPEC NUM: [id number] RECD: 07/28/23 STATUS: TYLER RIDLEY NUM: [id number] JANA: 07/28/[address] [facility] [address]: Bhupendra Painter ENTERED: 07/28/[address] [facility] [address]: Julio,Lab SPEC TYPE: Surgical DEPT: [facility] ORDERED: HE/2, Gross/Micro L4 ORDERED: HE/2, Gross/Micro L4 Pathological Diagnosis Endometrial curettings: -Multiple strips of moderately unevenly developed secretory endometrium of the variably early to mid phase types without hyperplasia or atypia identified Clinical Information Pelvic pain, endometriosis, menorrhagia, obliteration of close caudal sac, left hemorrhagic cyst. Gross Description Received in formalin labeled with the patient's name, date of and endometrial curettings are multiple gallagher-pink tissue fragments admixed with mucus and clotted blood on a Telfa pad measuring in aggregate 2.8 x 2.1 x 0.3 cm, entirely submitted in A1. CPT Codes 91851 Specimen: [id number] Received: 07/28/23 Status: TYLER Ridley Num: [id number] Spec Type: Surgical Subm Dr: Bhupendra Painter Tissues: A Endometrium - Curettings (EMC) Procedures: HE/2, Gross/Micro L4 Patient: Elidia Lema [id number] (Continued) Signed (signature on file) Lashonda Russell MD 07/30/23 1755 Normal [facility] L Specimen: [id number] Received: 07/28/23-1415 Status: TYLER Ridley Num: [id number] Spec Type: Cytology Subm Dr: Bhupendra Painter Tissues: A CYST FLUID (LT OVARIAN) Procedures: HE/2, Gross/Micro L4, Cyto Prepstain, PAPSTN Age/ Patient Sex Location Account Attending Physician Elidia Lema 33/F LABELL [id number] Bhupendra Painter SPEC NUM: [id number] RECD: 07/28/23 STATUS: TYLER RIDLEY NUM: [id number] JANA: 07/28/[address]: Bhupendra Painter ENTERED: 07/28/[address] [facility] [address]: Julio,Lab SPEC TYPE: Cytology DEPT: [facility] ENTERED BY: [id number] RECV BY: [id number] ORDERED: HE/2, Gross/Micro L4, Cyto Prepstain, PAPSTN ORDERED: HE/2, Gross/Micro L4, Cyto Prepstain, PAPSTN Pathological Diagnosis Left ovarian cyst fluid, cytology: -No evidence of malignant cells -Consistent with degenerated cyst, showing occasional mononuclear cells including lymphocytes and histiocytes and occasional PMN among abundant fibrin debris -Cell block section showing only small amount of material with similar findings in addition to occasional eosinophils and possible rare luteinized type mononuclear or epithelioid cell Clinical Information Left ovarian cyst Gross Description Received is 10 ml red cloudy unfixed fluid for cytology said to have been obtained as left ovarian cyst fluid. ThinPrep and cell block preparations are prepared for microscopic examination. (CC/va) CPT Codes 11165, 46200 Specimen: [id number] Received: 07/28/23 Status: TYLER Ridley Num: [id number] Spec Type: Cytology Subm Dr: Bhupendra Painter Tissues: A CYST FLUID (LT OVARIAN) Procedures: HE/2, Gross/Micro L4, Cyto Prepstain, PAPSTN Patient: Elidia Lema [id number] (Continued) Signed (signature on file) Lashonda Russell MD 07/30/23 1905 Normal [facility] TSHon 05-25-2022 TSH 1.146 uIU/mL Normal 0.358-3.740 [facility] Comment on above: Performed By: #### C BC #### [facility] [address] [place] [address] Dr. Vale Russell ANTIBODY ID PANELon 08-20-19 ANTIBODY ID PANEL Antibody ID Anti-D Blood Bank Notes possibly due to rhogam given on 06/26/21 Normal [facility] Comment on above: Performed By: #### C BC #### [facility] [address] [place] [address] Dr. Vale Russell CBC AUTO DIFFon 08-14-2021 BASO # 0.0 103/ul Normal 0.0-0.1 [facility] Comment on above: Performed By: #### C BC #### [facility] [address] [place] [address] Dr. Vale Russell Basophils/100 WBC (Bld) 0.2 % Normal 0.2-2.0 [facility] Comment on above: Performed By: #### C BC #### [facility] [address] [address] [address] Vale Russell EO # 0.0 103/ul Normal 0.0-0.7 [facility] Comment on above: Performed By: #### C BC #### [facility] [address] [address] [address] Vale Russell Eosinophils/100 WBC (Bld) 0.2 % Critically low 0.9-7.0 [facility] Comment on above: Performed By: #### C BC #### [facility] [address] [place] [address] Dr. Vale Russell Erythrocyte distribution width (RBC) [Ratio] 13.5 % Normal 11.0-15.0 [facility] Comment on above: Performed By: #### C BC #### [facility] [address] [place] [address] Dr. Vale Russell Hematocrit (Bld) [Volume fraction] 29.9 % Critically low 36.0-48.0 [facility] Comment on above: Performed By: #### C BC #### [facility] [address] [place] [address] Dr. Vale Russell Hemoglobin (Bld) [Mass/Vol] 10.1 g/dL Critically low 12.0-16.0 [facility] Comment on above: Performed By: #### C BC #### [facility] [address] [place] [address] Dr. Vale Russell IG # 0.13 10e3/ul Critically high 0.00-0.03 [facility] Comment on above: Performed By: #### C BC #### [facility] [address] [place] [address] Dr. Vale Russell IG % 0.8 % Critically high 0.0-0.5 [facility] Comment on above: Performed By: #### C BC #### [facility] [address] [place] [address] Dr. Vale Russell LYMPH # 1.8 103/ul Normal 1.2-3.8 [facility] Comment on above: Performed By: #### C BC #### [facility] [address] [place] [address] Dr. Vale Russell Lymphocytes/100 WBC (Bld) 11.0 % Critically low 20.5-60.0 [facility] Comment on above: Performed By: #### C BC #### [facility] [address] [place] [address] Dr. Vale Russell MANUAL DIFF REQ NO Normal [facility] Comment on above: Performed By: #### C BC #### [facility] [address] [place] [address] Dr. Vale Russell MCH (RBC) [Entitic mass] 31.2 pg Normal 26.7-34.0 [facility] Comment on above: Performed By: #### C BC #### [facility] [address] [place] [address] Dr. Vale Russell MCHC (RBC) [Mass/Vol] 33.8 g/dL Normal 29.9-35.2 [facility] Comment on above: Performed By: #### C BC #### [facility] [address] [place] [address] Dr. Vale Russell MCV (RBC) [Entitic vol] 92.3 fL Normal 81.0-99.0 [facility] Comment on above: Performed By: #### C BC #### [facility] [address] [place] [address] Dr. Vale Russell MONO # 1.0 103/ul Critically high 0.3-0.8 [facility] Comment on above: Performed By: #### C BC #### [facility] [address] [place] [address] Dr. Vale Russell Monocytes/100 WBC (Bld) 6.3 % Normal 1.7-12.0 [facility] Comment on above: Performed By: #### C BC #### [facility] [address] [place] [address] Dr. Vale Russell NEUT # 13.4 103/ul Critically high 1.4-6.5 [facility] Comment on above: Performed By: #### C BC #### [facility] [address] [address] [address] Vale Russell Neutrophils/100 WBC (Bld) 81.5 % Critically high 43.0-75.0 [facility] Comment on above: Performed By: #### C BC #### [facility] [address] [place] [address] Dr. Vale Russell Platelet mean volume (Bld) [Entitic vol] 10.2 fL Normal 9.5-13.5 [facility] Comment on above: Performed By: #### C BC #### [facility] [address] [place] [address] Dr. Vale Russell PLT 162 103/ul Normal 150-450 [facility] Comment on above: Performed By: #### C BC #### [facility] [address] [place] [address] Dr. Vale Russell RBC 3.24 106/ul Critically low 4.20-5.40 [facility] Comment on above: Performed By: #### C BC #### [facility] [address] [place] [address] Dr. Vale Russell WBC 16.4 103/ul Critically high 4.0-11.0 [facility] Comment on above: Performed By: #### C BC #### [facility] [address] [place] [address] Dr. Vale Russell CBC AUTO DIFFon 08-13-2021 BASO # 0.0 103/ul Normal 0.0-0.1 [facility] Comment on above: Performed By: #### C BC #### [facility] [address] [place] [address] Dr. Vale Russell Basophils/100 WBC (Bld) 0.3 % Normal 0.2-2.0 [facility] Comment on above: Performed By: #### C BC #### [facility] [address] [place] [address] Dr. Vale Russell EO # 0.1 103/ul Normal 0.0-0.7 [facility] Comment on above: Performed By: #### C BC #### [facility] [address] [place] [address] Dr. Vale Russell Eosinophils/100 WBC (Bld) 1.1 % Normal 0.9-7.0 [facility] Comment on above: Performed By: #### C BC #### [facility] [address] [place] [address] Dr. Vale Russell Erythrocyte distribution width (RBC) [Ratio] 13.3 % Normal 11.0-15.0 [facility] Comment on above: Performed By: #### C BC #### [facility] [address] [place] [address] Dr. Vale Russell Hematocrit (Bld) [Volume fraction] 36.4 % Normal 36.0-48.0 [facility] Comment on above: Performed By: #### C BC #### [facility] [address] [place] [address] Dr. Vale Russell Hemoglobin (Bld) [Mass/Vol] 12.1 g/dL Normal 12.0-16.0 [facility] Comment on above: Performed By: #### C BC #### [facility] [address] [place] [address] Dr. Vale Russell IG # 0.12 10e3/ul Critically high 0.00-0.03 [facility] Comment on above: Performed By: #### C BC #### [facility] [address] [place] [address] Dr. Vale Russell IG % 1.1 % Critically high 0.0-0.5 [facility] Comment on above: Performed By: #### C BC #### [facility] [address] [place] [address] Dr. Vale Russell LYMPH # 1.4 103/ul Normal 1.2-3.8 [facility] Comment on above: Performed By: #### C BC #### [facility] [address] [place] [address] Dr. Vale Russell Lymphocytes/100 WBC (Bld) 12.8 % Critically low 20.5-60.0 [facility] Comment on above: Performed By: #### C BC #### [facility] [address] [place] [address] Dr. Vale Russell MANUAL DIFF REQ NO Normal [facility] Comment on above: Performed By: #### C BC #### [facility] [address] [place] [address] Dr. Vale Russell MCH (RBC) [Entitic mass] 30.6 pg Normal 26.7-34.0 [facility] Comment on above: Performed By: #### C BC #### [facility] [address] [place] [address] Dr. Vale Russell MCHC (RBC) [Mass/Vol] 33.2 g/dL Normal 29.9-35.2 [facility] Comment on above: Performed By: #### C BC #### [facility] [address] [place] [address] Dr. Vale Russlel MCV (RBC) [Entitic vol] 92.2 fL Normal 81.0-99.0 [facility] Comment on above: Performed By: #### C BC #### [facility] [address] [place] [address] Dr. Vale Russell MONO # 0.4 103/ul Normal 0.3-0.8 [facility] Comment on above: Performed By: #### C BC #### [facility] [address] [place] [address] Dr. Vale uRssell Monocytes/100 WBC (Bld) 3.6 % Normal 1.7-12.0 [facility] Comment on above: Performed By: #### C BC #### [facility] [address] [place] [address] Dr. Vale Russell NEUT # 8.7 103/ul Critically high 1.4-6.5 [facility] Comment on above: Performed By: #### C BC #### [facility] [address] [place] [address] Dr. Vale Russell Neutrophils/100 WBC (Bld) 81.1 % Critically high 43.0-75.0 [facility] Comment on above: Performed By: #### C BC #### [facility] [address] [place] [address] Dr. Vale Russell Platelet mean volume (Bld) [Entitic vol] 10.2 fL Normal 9.5-13.5 [facility] Comment on above: Performed By: #### C BC #### [facility] [address] [address] [address] Vale Russell PLT 134 103/ul Critically low 150-450 [facility] Comment on above: Performed By: #### C BC #### [facility] [address] [address] [address] Vale Russell RBC 3.95 106/ul Critically low 4.20-5.40 [facility] Comment on above: Performed By: #### C BC #### [facility] [address] [place] [address] Dr. Vale Russell WBC 10.7 103/ul Normal 4.0-11.0 [facility] Comment on above: Performed By: #### C BC #### [facility] [address] [address] [address] Vale Russell [facility]on SARS-CoV-2 (COVID-19) RNA VIGNESH+probe Ql (Unsp spec) Not detected Normal NOT DETECTED [facility] Comment on above: Result Comment: When diagnostic [...] for this test is supported by the Account Auditor of Health and Human Service's declaration that [...] used). Performed By: #### C VDTBH #### [facility] [address] [place] [address] Dr. Vale Russell DRUG SCREEN RAPID (URINE)on 08-13-2021 AMP Negative Normal NEGATIVE [facility] Comment on above: Performed By: #### D RUGRPD #### [facility] [address] [place] [address] Dr. Vale Russell BAR Negative Normal NEGATIVE [facility] Comment on above: Performed By: #### D RUGRPD #### [facility] [address] [place] [address] Dr. Vale Russell BUP Negative Normal NEGATIVE [facility] Comment on above: Performed By: #### D RUGRPD #### [facility] [address] [place] [address] Dr. Vale Russell BZO Negative Normal NEGATIVE [facility] Comment on above: Performed By: #### D RUGRPD #### [facility] [address] [place] [address] Dr. Vale Russell HANH Negative Normal NEGATIVE [facility] Comment on above: Performed By: #### D RUGRPD #### [facility] [address] [place] [address] Dr. Vale Russell CUT-OFFS SEE BELOW Normal [facility] Comment on above: Result Comment: AMP [...] ng/mL Performed By: #### D RUGRPD #### [facility] [address] [place] [address] Dr. Vale Russell DRUG CUT HEADER DRUG CLASS TEST SYSTEM CUT-OFF CONCENTRATIONS ARE FOLLOWS: Normal [facility] Comment on above: Performed By: #### D RUGRPD #### [facility] [address] [address] [address] Vale Russell mAMP Negative Normal NEGATIVE [facility] Comment on above: Performed By: #### D RUGRPD #### [facility] [address] [address] [address] Vale Russell MTD Negative Normal NEGATIVE [facility] Comment on above: Performed By: #### D RUGRPD #### [facility] [address] [place] [address] Dr. Vale Russell OPI Negative Normal NEGATIVE [facility] Comment on above: Performed By: #### D RUGRPD #### [facility] [address] [place] [address] Dr. Vale Russell OXY Negative Normal NEGATIVE [facility] Comment on above: Performed By: #### D RUGRPD #### [facility] [address] [address] [address] Vale Russell PCP Negative Normal NEGATIVE [facility] Comment on above: Performed By: #### D RUGRPD #### [facility] [address] [place] [address] Dr. Vale Russell PPX Negative Normal NEGATIVE [facility] Comment on above: Performed By: #### D RUGRPD #### [facility] [address] [place] [address] Dr. Vale Russell TCA Negative Normal NEGATIVE [facility] Comment on above: Performed By: #### D RUGRPD #### [facility] [address] [place] [address] Dr. Vale Russell THC Negative Normal NEGATIVE [facility] Comment on above: Performed By: #### D RUGRPD #### [facility] [address] [place] [address] Dr. Vale Russell TYPE AND SCREENon 08-13-2021 TYPE AND SCREEN Negative Normal [facility] Comment on above: Performed By: #### T NS #### [facility] [address] [place], [place] [id number] Dr. Vale Russell UA (CLEAN/CATCH) MANAGER MATERIALS MANAGEMENT/MICRO I F IND.on 08-13-2021 Bilirubin Ql (U) Negative Normal NEGATIVE [facility] Comment on above: Performed By: #### D RUGRPD #### [facility] [address] [place] [address] Dr. Vale Russell Clarity (U) CLEAR Normal CLEAR [facility] Comment on above: Performed By: #### D RUGRPD #### [facility] [address] [place] [address] Dr. Vale Russell Color (U) LT. YELLOW Normal YELLOW [facility] Comment on above: Performed By: #### D RUGRPD #### [facility] [address] [place] [address] Dr. Vale Russell Glucose Ql (U) Negative Normal NEGATIVE [facility] Comment on above: Performed By: #### D RUGRPD #### [facility] [address] [place] [address] Dr. Vale Russell Hemoglobin Ql (U) SMALL Abnormal NEGATIVE The [facility] Comment on above: Performed By: #### D RUGRPD #### [facility] [address] [place] [address] Dr. Vale Russell Ketones Ql (U) Negative Normal NEGATIVE [facility] Comment on above: Performed By: #### D RUGRPD #### [facility] [address] [place] [address] Dr. Vale Russell LEUKOCYTES LARGE Abnormal NEGATIVE [facility] Comment on above: Performed By: #### D RUGRPD #### [facility] [address] [place] [address] Dr. Vale Russell Nitrite Ql (U) Negative Normal NEGATIVE [facility] Comment on above: Performed By: #### D RUGRPD #### [facility] [address] [place] [address] Dr. Vale Russell pH (U) 6.0 [pH] Normal 5-9 [facility] Comment on above: Performed By: #### D RUGRPD #### [facility] [address] [place] [address] Dr. Vale Russell SPEC GRAVITY 1.015 Normal 1.005-<=1.02 5 [facility] Comment on above: Performed By: #### D RUGRPD #### [facility] [address] [place] [address] Dr. Vale Russell UA PROTEIN Negative Normal NEGATIVE/ TRACE [facility] Comment on above: Performed By: #### D RUGRPD #### [facility] [address] [place] [address] Dr. Vale Russell UR MICRO IND INDICATED Normal [facility] Comment on above: Performed By: #### D RUGRPD #### [facility] [address] [place] [address] Dr. Vale Russell Urobilinogen Qn (U) 0.2 {Carlie'U}/dL Normal 0.2 - 1. 0 [facility] Comment on above: Performed By: #### D RUGRPD #### [facility] [address] [place] [address] Dr. Vale Russell URINE MICROSCOPIC ONLYon BACTERIA TRACE Abnormal NONE SEEN [facility] Comment on above: Performed By: #### D RUGRPD #### [facility] [address] [place] [address] Dr. Vale Russell Bacteria identified Cx Nom (U) NOT INDICATED Normal [facility] Comment on above: Performed By: #### D RUGRPD #### [facility] [address] [place] [address] Dr. Vale Russell CAST NONE SEEN Normal NONE SEEN [facility] Comment on above: Performed By: #### D RUGRPD #### [facility] [address] [place] [address] Dr. Vale Russell Crystals LM Nom (Urine sed) NONE SEEN Normal NONE SEEN [facility] Comment on above: Performed By: #### D RUGRPD #### [facility] [address] [place] [address] Dr. Vale Russell Epithelial cells LM Ql (Urine sed) FEW Abnormal NONE SEEN /RARE [facility] Comment on above: Performed By: #### D RUGRPD #### [facility] [address] [address] [address] Vale Russell MUCOUS NONE SEEN Normal NONE SEEN [facility] Comment on above: Performed By: #### D RUGRPD #### [facility] [address] [address] [address] Vale Russell RBC 2-5 Abnormal 0-2 [facility] Comment on above: Performed By: #### D RUGRPD #### [facility] [address] [address] [address] Vale Russell WBC 5-10 Abnormal NONE SEEN [facility] Comment on above: Performed By: #### D RUGRPD #### [facility] [address] [address] [address] Vale Russell US PREG BIOPHY W [...] MELISSA GOLDSTEIN Date: 2021-08-13 07:38 Normal [facility] US PREG PLACENTAon US PREG PLACENTA EXAMINATION: [...] MELISSA GOLDSTEIN Date: 2021-08-13 07:42 Normal [facility] CBC AUTO DIFFon 06-29-2021 BASO # 0.0 103/ul Normal 0.0-0.1 [facility] Comment on above: Performed By: #### C BC #### [facility] [address] [place] [address] Dr. Vale Russell Basophils/100 WBC (Bld) 0.2 % Normal 0.2-2.0 [facility] Comment on above: Performed By: #### C BC #### [facility] [address] [place] [address] Dr. Vale Russell EO # 0.1 103/ul Normal 0.0-0.7 [facility] Comment on above: Performed By: #### C BC #### [facility] [address] [place] [address] Dr. Vale Russell Eosinophils/100 WBC (Bld) 1.1 % Normal 0.9-7.0 [facility] Comment on above: Performed By: #### C BC #### [facility] [address] [place] [address] Dr. Vale Russell Erythrocyte distribution width (RBC) [Ratio] 13.0 % Normal 11.0-15.0 [facility] Comment on above: Performed By: #### C BC #### [facility] [address] [place] [address] Dr. Vale Russell Hematocrit (Bld) [Volume fraction] 37.3 % Normal 36.0-48.0 [facility] Comment on above: Performed By: #### C BC #### [facility] [address] [place] [address] Dr. Vale Russell Hemoglobin (Bld) [Mass/Vol] 12.3 g/dL Normal 12.0-16.0 [facility] Comment on above: Performed By: #### C BC #### [facility] [address] [place] [address] Dr. Vale Russell IG # 0.11 10e3/ul Critically high 0.00-0.03 [facility] Comment on above: Performed By: #### C BC #### [facility] [address] [place] [address] Dr. Vale Russell IG % 0.9 % Critically high 0.0-0.5 [facility] Comment on above: Performed By: #### C BC #### [facility] [address] [place] [address] Dr. Vale Russell LYMPH # 2.0 103/ul Normal 1.2-3.8 [facility] Comment on above: Performed By: #### C BC #### [facility] [address] [place] [address] Dr. Vale Russell Lymphocytes/100 WBC (Bld) 16.0 % Critically low 20.5-60.0 [facility] Comment on above: Performed By: #### C BC #### [facility] [address] [place] [address] Dr. Vale Russell MANUAL DIFF REQ NO Normal [facility] Comment on above: Performed By: #### C BC #### [facility] [address] [place] [address] Dr. Vale Russell MCH (RBC) [Entitic mass] 30.7 pg Normal 26.7-34.0 [facility] Comment on above: Performed By: #### C BC #### [facility] [address] [place] [address] Dr. Vale Russell MCHC (RBC) [Mass/Vol] 33.0 g/dL Normal 29.9-35.2 [facility] Comment on above: Performed By: #### C BC #### [facility] [address] [place] [address] Dr. Vale Russell MCV (RBC) [Entitic vol] 93.0 fL Normal 81.0-99.0 [facility] Comment on above: Performed By: #### C BC #### [facility] [address] [place] [address] Dr. Vale Russell MONO # 0.8 103/ul Normal 0.3-0.8 [facility] [facility] Comment on above: Performed By: #### C BC #### [facility] [address] [place] [address] Dr. Vale Russell Monocytes/100 WBC (Bld) 6.2 % Normal 1.7-12.0 [facility] Comment on above: Performed By: #### C BC #### [facility] [address] [address] [address] Vale Russell NEUT # 9.5 103/ul Critically high 1.4-6.5 [facility] Comment on above: Performed By: #### C BC #### [facility] [address] [place] [address] Dr. Vale Russell Neutrophils/100 WBC (Bld) 75.6 % Critically high 43.0-75.0 [facility] Comment on above: Performed By: #### C BC #### [facility] [address] [place] [address] Dr. Vale Russell Platelet mean volume (Bld) [Entitic vol] 9.9 fL Normal 9.5-13.5 [facility] Comment on above: Performed By: #### C BC #### [facility] [address] [place] [address] Dr. Vale Russell PLT 167 103/ul Normal 150-450 [facility] Comment on above: Performed By: #### C BC #### [facility] [address] [place] [address] Dr. Vale Russell RBC 4.01 106/ul Critically low 4.20-5.40 [facility] Comment on above: Performed By: #### C BC #### [facility] [address] [place] [address] Dr. Vale Russell WBC 12.5 103/ul Critically high 4.0-11.0 [facility] Comment on above: Performed By: #### C BC #### [facility] [address] [address] [address] Vale Russell CULTURE URINEon 06-29-2021 CULTURE URINE Culture Observations: MODERATE GROWTH OF MIXED GENITAL CHU. NO POTENTIAL PATHOGENS SEEN. Normal [facility] Comment on above: Performed By: #### C BC #### [facility] [address] [place] [address] Dr. Vale Russell ER URINE PROFILEon Bilirubin Ql (U) Negative Normal NEGATIVE [facility] Comment on above: Performed By: #### E CHARLESR, UMICRO #### [facility] [address] [address] [address] Vale Russell Clarity (U) CLEAR Normal CLEAR [facility] Comment on above: Performed By: #### E SASHA, UMICRO #### [facility] [address] [address] [address] Vale Russell Color (U) LT. YELLOW Normal YELLOW [facility] Comment on above: Performed By: #### E SASHA, UMICRO #### [facility] [address] [place] [address] Dr. Vale BAINS A micrscopic examination will be performed if indicated. Normal [facility] Comment on above: Performed By: #### E SASHA, UMICRO #### [facility] [address] [place] [address] Dr. Vale Russell Glucose Ql (U) Negative Normal NEGATIVE The [facility] Comment on above: Performed By: #### Brielle BAEZ UMICRO #### [facility] [address] [place] [address] Dr. Vale Russell Hemoglobin Ql (U) Negative Normal NEGATIVE [facility] Comment on above: Performed By: #### Brielle BAEZ, UMICRO #### [facility] [address] [place] [address] Dr. Vale Russell Ketones Ql (U) Negative Normal NEGATIVE [facility] Comment on above: Performed By: #### Brielle BAEZ UMICRO #### [facility] [address] [place] [address] Dr. Vale Russell LEUKOCYTES MODERATE Abnormal NEGATIVE [facility] Comment on above: Performed By: #### Brielle BAEZ UMICRO #### [facility] [address] [place] [address] Dr. Vale Russell Nitrite Ql (U) Negative Normal NEGATIVE [facility] Comment on above: Performed By: #### Brielle BAEZ UMICRO #### [facility] [address] [place] [address] Dr. Vale Russell pH (U) 6.5 [pH] Normal 5-9 [facility] Comment on above: Performed By: #### LOUIS ELKINS #### [facility] [address] [place] [address] Dr. Vale Russell SPEC GRAVITY <=1.005 Abnormal 1.005-<=1.02 5 [facility] Comment on above: Performed By: #### LOUIS ELKINS #### [facility] [address] [place] [address] Dr. Vale Russell UA PROTEIN Negative Normal NEGATIVE/ TRACE [facility] Comment on above: Performed By: #### LOUIS ELKINS #### [facility] [address] [place] [address] Dr. Vale Russell UR MICRO IND INDICATED Normal [facility] Comment on above: Performed By: #### LOUIS ELKINS #### [facility] [address] [place] [address] Dr. Vale Russell Urobilinogen Qn (U) 0.2 {Carlie'U}/dL Normal 0.2 - 1. 0 [facility] Comment on above: Performed By: #### LOUIS ELKINS #### [facility] [address] [place] [address] Dr. Vale Russell PROF 14(COMP METB)on 022 Albumin [Mass/Vol] 3.0 g/dL Critically low 3.4-5.0 [facility] Comment on above: Performed By: #### C MP #### [facility] [address] [place] [address] Dr. Vale Russell Albumin/Globulin [Mass ratio] 0.8 {ratio} Normal [facility] Comment on above: Performed By: #### C MP #### [facility] [address] [place] [address] Dr. Vale Russell ALP [Catalytic activity/Vol] 86 U/L Normal 46-116 [facility] Comment on above: Performed By: #### C MP #### [facility] [address] [address] [address] Vale Russell ALT [Catalytic activity/Vol] 21 U/L Normal 14-59 [facility] Comment on above: Performed By: #### C MP #### [facility] [address] [address] [address] Vale Russell Anion gap [Moles/Vol] 11.1 mmol/L Normal [facility] Comment on above: Performed By: #### C MP #### [facility] [address] [address] [address] Vale Russell AST [Catalytic activity/Vol] 16 U/L Normal 15-37 [facility] Comment on above: Performed By: #### C MP #### [facility] [address] [place] [address] Dr. Vale Russell Bilirubin [Mass/Vol] 0.3 mg/dL Normal 0.2-1.0 [facility] Comment on above: Performed By: #### C MP #### [facility] [address] [place] [address] Dr. Vale Russell Calcium [Mass/Vol] 9.0 mg/dL Normal 8.5-10.1 [facility] Comment on above: Performed By: #### C MP #### [facility] [address] [place] [address] Dr. Vale Russell Chloride [Moles/Vol] 106 mmol/L Normal 98-107 [facility] Comment on above: Performed By: #### C MP #### [facility] [address] [place] [address] Dr. Vale Russell CO2 [Moles/Vol] 25.6 mmol/L Normal 21.0-32.0 [facility] Comment on above: Performed By: #### C MP #### [facility] [address] [place] [address] Dr. Vale Russell Creatinine [Mass/Vol] 0.60 mg/dL Normal 0.55-1.02 [facility] Comment on above: Performed By: #### C MP #### [facility] [address] [place] [address] Dr. Vale Russell EGFR-AF CYPRIOT >60 Normal >=60 [facility] Comment on above: Performed By: #### C MP #### [facility] [address] [address] [address] Vale Russell EGFR-NON AF CYPRIOT >60 Normal >=60 [facility] Comment on above: Performed By: #### C MP #### [facility] [address] [address] [address] Vale Russell Globulin (S) [Mass/Vol] 3.8 g/dL Normal [facility] Comment on above: Performed By: #### C MP #### [facility] [address] [address] [address] Vale Russell Glucose [Mass/Vol] 79 mg/dL Normal 74-106 [facility] Comment on above: Performed By: #### C MP #### [facility] [address] [address] [address] Vale Russell Potassium [Moles/Vol] 3.7 mmol/L Normal 3.5-5.1 [facility] Comment on above: Performed By: #### C MP #### [facility] [address] [address] [address] Vale Russell Protein [Mass/Vol] 6.8 g/dL Normal 6.4-8.2 [facility] Comment on above: Performed By: #### C MP #### [facility] [address] [address] [address] Vale Russell Sodium [Moles/Vol] 139 mmol/L Normal 136-145 [facility] Comment on above: Performed By: #### C MP #### [facility] [address] [address] [address] Vale Russell Urea nitrogen [Mass/Vol] 9.0 mg/dL Normal 7.0-18.0 [facility] Comment on above: Performed By: #### C MP #### [facility] [address] [address] [address] Vale Russell Urea nitrogen/Creatinine [Mass ratio] 15.0 mg/mg Normal [facility] Comment on above: Performed By: #### C MP #### [facility] [address] [place] [address] Dr. Vale Russell URINE MICROSCOPIC ONLYon BACTERIA TRACE Abnormal NONE SEEN The [facility] Comment on above: Performed By: #### Brielle BAEZ UMICRO #### [facility] [address] [place] [address] Dr. Vale Russell Bacteria identified Cx Nom (U) INDICATED Normal [facility] Comment on above: Performed By: #### Brielle BAEZ UMICRO #### [facility] [address] [place] [address] Dr. Vale Russell CAST NONE SEEN Normal NONE SEEN The [facility] Comment on above: Performed By: #### Brielle BAEZ UMICRO #### [facility] [address] [place] [address] Dr. Vale Russell Crystals LM Nom (Urine sed) NONE SEEN Normal NONE SEEN [facility] Comment on above: Performed By: #### Brielle BAZE UMICRO #### [facility] [address] [place] [address] Dr. Vale Russell Epithelial cells LM Ql (Urine sed) FEW Abnormal NONE SEEN /RARE [facility] Comment on above: Performed By: #### Brielle BAEZ UMICRO #### [facility] [address] [place] [address] Dr. Vale Russell MUCOUS NONE SEEN Normal NONE SEEN The [facility] Comment on above: Performed By: #### Brielle BAEZ UMICRO #### [facility] [address] [place] [address] Dr. Vale Russell RBC 2-5 Abnormal 0-2 [facility] Comment on above: Performed By: #### Brielle BAEZ UMICRO #### [facility] [address] [place] [address] Dr. Vale Russell WBC 50-75 Abnormal NONE SEEN The [facility] Comment on above: Performed By: #### Brielle BAEZ UMICRO #### [facility] [address] [place] [address] Dr. Vale Russell RHOGAMon 06-26-2021 RHOGAM Status Information Issued Quantity 1 Product ID Rh Immune Globulin Lot Number [id number] Issue Date/Time [id number] Normal [facility] Comment on above: Performed By: #### R HOG #### [facility] [address] [address] [address] Vale Russell TYPE AND SCREENon 06-25-2021 TYPE AND SCREEN Negative Normal [facility] Comment on above: Performed By: #### C BC #### [facility] [address] [address] [address] Vale Russell US PREG TVon 06-24-2021 [...] MELISSA GOLDSTEIN Date: 2021-06-24 09:07 Normal [facility] GLUCOSE - 1HRon 06-09-2021 Glucose [Mass/Vol] 130 mg/dL Critically high 74-106 [facility] Comment on above: Performed By: #### C BC #### [facility] [address] [address] [address] Vale Russell HEMOGRAM AND PLATELon 2021 Hematocrit (Bld) [Volume fraction] 35.6 % Critically low 36.0-48.0 [facility] Comment on above: Performed By: #### H H #### [facility] [address] [address] [address] Vale Russell Hemoglobin (Bld) [Mass/Vol] 11.8 g/dL Critically low 12.0-16.0 [facility] Comment on above: Performed By: #### H H #### [facility] [address] [address] [address] Vale Russell MCH (RBC) [Entitic mass] 31.0 pg Normal 26.7-34.0 [facility] Comment on above: Performed By: #### H H #### [facility] [address] [address] [address] Vale Russell MCHC (RBC) [Mass/Vol] 33.1 g/dL Normal 29.9-35.2 [facility] Comment on above: Performed By: #### H H #### [facility] [address] [place] [address] Dr. Vale Russell MCV (RBC) [Entitic vol] 93.4 fL Normal 81.0-99.0 [facility] Comment on above: Performed By: #### H H #### [facility] [address] [place] [address] Dr. Vale Russell PLT 180 103/ul Normal 150-450 [facility] Comment on above: Performed By: #### H H #### [facility] [address] [place] [address] Dr. Vale Russell RBC 3.81 106/ul Critically low 4.20-5.40 [facility] Comment on above: Performed By: #### H H #### [facility] [address] [place] [address] Dr. Vale Russell WBC 10.1 103/ul Normal 4.0-11.0 [facility] Comment on above: Performed By: #### H H #### [facility] [address] [place] [address] Dr. Vale Russell Consenton 12-03-2020 Consent [id number] 0#[id number]:127 Normal [facility] Registrationon 12-03-2020 Registration [id number] 9#1.00CD:127 Normal [facility] CNCOon 05-05-2020 CNCO Letter Text Normal [facility] CNOVon 05-05-2020 CNOV Office Visit (REIAV) ELIDIA LEMA ([id number]) 1990 F Date Time Provider Department 05/05/20 8:45 AM MEG RODRIGUEZ During your visit today, we recorded the following information about you: Pulse Blood pressure Weight Height 73/minute 126/74 57.2 kg 1.6 m Last Period 05/04/20 Ara Gallagher MD 05/05/2020 6:04 PM Signed [facility] Date: 05/05/2020 Consultation Requested By: Dr [...] Hysteroscopy Laparoscopy OPK (Ovulation Predictor Kit) Ovarian [place] Saline Ultrasound Semen Analysis Ultrasound Other (See comments) MENSTRUAL HISTORY: Menarche Age: [age] year old Length of Cycle: qvaries, alot of breakthrough bleeding Irregular Days: 4-5 days Menstrual Flow: Light Menstrual Symptoms: Breast Tenderness,Mood Changes,Bloating,Handkerchief Folder mping Patient's last menstrual period was 05/04/2020. 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 No current facility-administere d medications on file prior to visit. ALLERGIES: [...] with more than 50% of the total mvvf-xr-mbnu time of the visit in counseling / [...] you for seeing me today at the [place]. I want to welcome you to my practice and answer some frequently asked questions. I know that we have discussed several things today and it can be overwhelming. I hope this information will help answer some of your questions. 1. How mami (more content not included)... Normal [facility] CONSULT PROGon 05-05-2020 CONSULT PROG HNO ID: [id number] Author: Meg Rodriguez Service: ? Author Type: Physician Type: Consult Progress Note Filed: 05/05/2020 6:04 PM Note Text: [facility] Date: 05/05/2020 Consultation Requested [...] Hysteroscopy Laparoscopy OPK (Ovulation Predictor Kit) Ovarian [place] Saline Ultrasound Semen Analysis Ultrasound Other (See comments) MENSTRUAL HISTORY: Menarche Age: [age] year old Length of Cycle: qvaries, alot of breakthrough bleeding Irregular Days: 4-5 days Menstrual Flow: Light Menstrual Symptoms: Breast Tenderness,Mood Changes,Bloating,Handkerchief Folder mping Patient's last menstrual period was 05/04/2020. 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 No current facility-administere d medications on file prior to visit. ALLERGIES: Penicillins, Sulfa (Sulfonamide Antibiotics), and Codeine [facility] PAP Results: Normal Date: 2017 Comments: due for another pap exam in 05-06-2020 HPV Results: Negative Date: 2017 Blood Type: O NEGATIVE No results found for this basename: [id number] ASSESSMENT: Assessment: endometriosis, here to discuss fertility options. PLAN: Discuss with pt of options. I think it is reasonable to start TTC on her own. We discuss possible start fertility med vs. IVF after TTC for 3-6 months. Pt to call as needed. I spent 20 minutes in the visit, with more than 50% of the total iqea-bv-yntj time of the visit in counseling / coordination of care. Consultation requested by Dr. Pulliam for an opinion regarding endometriosis and my recommendations will be communicated back to the requesting physician by way of shared Medical record or letter via US mail , signature -MD Ara Fritz MD Normal [facility] CNCOon 04-14-2020 CNCO Letter Text Normal [facility] CNOVon 04-14-2020 CNOV Office Visit (GMIGFV) ELIDIA LEMA ([id number]) 1990 F Date Time Provider Department 04/14/20 [...] of endometriosis and CPP Pt travels from [place] and receives primary relationship counselor care with her local provider. Underwent RA-lsc [...] TK 1 T PO QD No current facility-administere d medications for this visit. Allergies As of [...] which included preparing to see the patient, thuv-nx-jmlz patient care, completing clinical documentation and counseling and educating the patient/family/careg iver Medical Decision Making Yuli Pulliam MD Referring Provider: SELF [200] Allergies As of Date: 04/14/2020 Noted Allergy Reaction PENICILLINS 08/23/2019 10 - Anaphylaxis SULFA (SULFONAMIDE ANTIBIOTICS) 08/23/2019 4 - Hives Date Reviewed: 04/14/2020 Reviewed by: Sandhya (Rn) WILL Adrian - Fully Assessed Reason for Visit: Established Patient [175] Primary Visit Diagnosis:Endometrio sis [N80.9] Other Visit Diagnosis:Chronic pelvic pain in female [R10.2, G89.29] Order(s):CONSULT TO INFERTILITY CLINIC [[id number]] Order #: [id number]: 1 FUTURE Prescriptions as of 04/14/2020 Sig: [...] Encounter Pr (more content not included)... Normal [facility] BMPon 03-08-2019 Anion gap [Moles/Vol] 12 mmol/L 10 - 2 0 mmol/L [facility] Calcium [Mass/Vol] 8.9 mg/dL 8.4 - 10. 2 mg/dL [facility] Chloride [Moles/Vol] 104 mmol/L 98 - 10 8 mmol/L [facility] Creatinine [Mass/Vol] 0.85 mg/dL 0.4 - 1.1 mg/dL [facility] GFR/1.73 sq M predicted among non-blacks MDRD (S/P/Bld) [Vol rate/Area] The eGFR should be used for monitoring renal function only and not for medication dosing. [facility] GFR/1.73 sq M.predicted CKD-EPI (S/P/Bld) [Vol rate/Area] 93 >=60 mL/min/1.73 m2 [facility] Glucose [Mass/Vol] 136 mg/dL High 65 - 99 mg/dL [facility] HCO3 [Moles/Vol] 25 mmol/L 21 - 32 mmol/L [facility] Interpretation and review of laboratory results Abnormal [facility] Potassium [Moles/Vol] 3.6 mmol/L 3.5 - 5.1 mmol/L [facility] Sodium [Moles/Vol] 137 mmol/L 135 - 145 mmol/L [facility] Urea nitrogen [Mass/Vol] 11 mg/dL 8 - 25 mg/dL [facility] Urea nitrogen/Creatinine [Mass ratio] 12.9 mg/mg [facility] CBC WITH AUTO DIFFERENTIALon 03-08-2019 Basophils (Bld) [#/Vol] 0.03 10*3/uL [facility] Basophils/100 WBC (Bld) 0.2 % [facility] Eosinophils (Bld) [#/Vol] 0.03 10*3/uL [facility] Eosinophils/100 WBC (Bld) 0.2 % [facility] Erythrocyte distribution width (RBC) [Entitic vol] 14.0 % 11.6 - 14.8 % [facility] Hematocrit (Bld) [Volume fraction] 40.3 % 36 - 46 % [facility] Hemoglobin (Bld) [Mass/Vol] 13.3 g/dL 12 - 16 g/dL [facility] Immature granulocytes (Bld) [#/Vol] 0.05 10*3/uL [facility] Immature granulocytes/100 WBC (Bld) 0.40 % [facility] Comment on above: The IG parameter is the percentage of metamyelocytes, myelocytes, and promyelocytes. Interpretation and review of laboratory results Abnormal [facility] Lymphocytes (Bld) [#/Vol] 1.64 10*3/uL [facility] Lymphocytes/100 WBC (Bld) 12.6 % [facility] MCH (RBC) [Entitic mass] 29.0 pg 26 - 34 pg [facility] MCHC (RBC) [Mass/Vol] 33.0 g/dL 31 - 37 g/dL [facility] MCV (RBC) [Entitic vol] 87.8 fL 80 - 100 fL [facility] Monocytes (Bld) [#/Vol] 0.73 10*3/uL [facility] Monocytes/100 WBC (Bld) 5.6 % [facility] Neutrophils (Bld) [#/Vol] 10.50 10*3/uL High [facility] Neutrophils/100 WBC (Bld) 81.0 % [facility] Nucleated RBC (Bld) [#/Vol] 0.00 10*3/uL [facility] Nucleated RBC/100 WBC (Bld) [Ratio] 0.0 % [facility] Platelet mean volume (Bld) [Entitic vol] 10.2 fL 9 - 15.5 fL [facility] Platelets (Bld) [#/Vol] 235 10*3/uL [facility] RBC (Bld) [#/Vol] 4.59 10*6/uL [facility]alth WBC (Bld) [#/Vol] 12.98 10*3/uL [facility] URINALYSISon 03-08-2019 Bacteria Auto Ql (U) Rare Abnormal None Se en /hpf [facility] Bilirubin Ql (U) Negative Negative [facility] th Clarity Refractometry automated (U) Hazy Abnormal Clear [facility] Color (U) Yellow Colorless, Yellow [facility] Crystals.amorphous Computer assisted (U) [#/Area] Many Abnormal None Seen, Rare /hpf [facility] Epithelial cells.squamous Auto (Urine sed) [#/Area] 1 [facility] Glucose Auto test strip (U) [Mass/Vol] Negative Negative mg/dL [facility] Hemoglobin Auto test strip Ql (U) Small Abnormal Negative [facility] Interpretation and review of laboratory results Abnormal [facility] Ketones (U) [Mass/Vol] >=80 Abnormal Negat nghia mg/dL [facility] Leukocyte esterase Auto test strip Ql (U) Negative Negative [facility] Nitrite Auto test strip Ql (U) Negative Negative [facility] pH (U) 6.0 [pH] [facility] Protein (U) [Mass/Vol] Negative Negat nghia mg/dL [facility] RBC Auto (Urine sed) [#/Area] 5 High [facility] Specific gravity (U) [Rel density] 1.027 High [facility] Urobilinogen (U) [Mass/Vol] <2.0 <2.0 mg/dL [facility] Microscopic examination is performed on all urinalysis samples and only positive findings are reported. The test for blood on the chemical analytic portion of urinalysis may also be positive due to hemoglobinuria and myoglobinuria and if red blood cells are present they are quantified by microscopic examination. [facility] PELVIC TRANSVAGINAL WITH COLOR FLOWon 03-08-2019 PELVIC [...] Dr. JEAN-CLAUDE GANNON on 03/08/2019 at 12:58. [employer] Workstation ID: [id number] Dictated by: BUCK PAUL on TueMar 08, 2019 12:58:47 PM EST Transcribed by: PATT OROZCO on TueMar 08, 2019 1:22:21 PM EST Finalized by: BUCK PAUL on TueMar 08, 2019 1:35:11 PM EST Normal [facility] Comment on above: Order Comment: Injur y/Trauma [...] Dr. JEAN-CLAUDE GANNON on 03/08/2019 at 12:58. [employer] Workstation ID: [id number] [facility] Interface, [facility] 03/08/2019 1:37 PM EST EXAMINATION: US [...] Dr. JEAN-CLAUDE GANNON on 03/08/2019 at 12:58. [employer] Workstation ID: [id number] [facility] EXAMINATION: US PELVIC TRANSVAGINAL WITH COLOR FLOW [...] ovary. No free fluid in the pelvis. [facility] Urine Pregnancyon 03-08-2019 HCG ( test) Ql (U) Negative Negative [facility] Interpretation and review of laboratory results Normal [facility] Vital Signs Date Time Vital Sign Value Performing Clinician Facility 06-27-2024 08:45-0400 Diastolic blood pressure 73 mm[Hg] Esme Bob DO Work Phone: [facility] 06-27-2024 08:45-0400 Heart rate 81 /min Esme Bob DO [facility] [place] 06-27-2024 08:45-0400 Respiratory rate 23 /min Esme Bob DO Work Phone: [facility] [place] 06-27-2024 08:45-0400 SaO2% (BldA) [Mass fraction] 99 % Esme Bob DO Work Phone: [facility] [place] 06-27-2024 08:45-0400 Systolic blood pressure 125 mm[Hg] Esme Bob DO Work Phone: [facility] [place] 06-27-2024 07:05-0400 Body height 160 cm Esme Bob DO Work Phone: [facility] [place] 06-27-2024 07:05-0400 Body mass index (BMI) [Ratio] 23.91 kg/m2 Esme Bob DO Work Phone: [facility] [place] 06-27-2024 07:05-0400 Body temperature 98.2 [degF] Esme Bob DO Work Phone: [facility] 06-27-2024 07:05-0400 Body weight 61.24 kg Esme Bob DO Work Phone[facility] [place] 02-14-2024 08:54-0500 Body height 160 cm Bhupendra Painter DO Work Phone: [facility] 02-14-2024 08:54-0500 Body mass index (BMI) [Ratio] 23.88 kg/m2 Bhupendra Inocencio DO Work Phone: [facility] 02-14-2024 08:54-0500 Body weight 61.15 kg Bhupendra Inocencio DO Work Phone: [facility] 02-14-2024 08:54-0500 Diastolic blood pressure 70 mm[Hg] Bhupendra Inocencio DO Work Phone: [facility] 02-14-2024 08:54-0500 Systolic blood pressure 120 mm[Hg] Bhupendra Inocencio DO Work Phone: [facility] 03-08-2019 21:22-0500 Body Temperature 98.49 [degF] [facility] 03-08-2019 21:22-0500 BP Diastolic 80 mm[Hg] [facility] 03-08-2019 21:22-0500 BP Systolic 122 mm[Hg] [facility] 03-08-2019 21:22-0500 Pulse (Heart Rate) 96 /min [facility] 03-08-2019 21:22-0500 Pulse Oximetry 95 % [facility] 03-08-2019 21:22-0500 Respiratory Rate 14 /min [facility] 03-08-2019 16:27-0500 BMI (Body Mass Index) 23.9 kg/m2 [facility] 03-08-2019 16:27-0500 Body weight 61.2 kg [facility] 03-08-2019 16:27-0500 Height 160 cm [facility] Encounters Encounter Date Encounter Type Care Provider Facility Start: 06-27-2024 End: 06-27-2024 Emergency department patient visit Esme Clarke Bob DO Work Phone: [facility] Comment on above: Vaginal bleeding (Pr imary Dx) Start: 02-20-2024 End: 02-20-2024 ambulatory BHUPENDRA INOCENCIO Not Available Start: 02-14-2024 End: 02-14-2024 Bamboo flowsheet Bhupendra Inocencio DO Work Phone: [facility] Start: 02-14-2024 End: 02-14-2024 Bamboo flowsheet Bhupendra Inocencio DO Work Phone: [facility] Start: 02-14-2024 End: 02-14-2024 Clinisync Result Encounter Bhupendra Inocencio DO Work Phone: [facility] Unsolicited Start: 02-14-2024 End: 02-14-2024 ambulatory BHUPENDRA INOCENCIO Not Available Start: 02-14-2024 End: 02-14-2024 Office outpatient visit 15 minutes Bhupendra Inocencio DO Work Phone: [facility] Comment on above: Irregular bleeding; PCOS (polycystic ovarian syndrome) Start: 08-04-2023 End: 08-04-2023 ambulatory BHUPENDRA INOCENCIO Not Available Start: 07-28-2023 End: 07-28-2023 ambulatory Bhupendra Inocencio [facility] Work Phone: Start: 07-28-2023 End: 07-28-2023 Departed Referred Bhupendra Inocencio Work Phone: [facility] Start: 07-05-2023 End: 07-05-2023 ambulatory BHUPENDRA INOCENCIO Not Available Start: 06-15-2023 End: 06-15-2023 ambulatory RADHA VALENTIN Not Available Start: 05-25-2022 End: 05-26-[address] ARMANI CABRAL . Facility:[facility] Start: 08-24-2021 End: 02-22-2022 ambulatory MAYRA SHARMAINE Facility:[facility] Start: 08-21-2021 End: 09-08-2021 ambulatory MAYRAVASU SCHMID Facility:[facility] Start: 08-13-2021 End: 08-17-2021 Evaluation and management of inpatient DR ARMANI CABRAL . Facility:[facility] Start: 06-29-2021 End: 06-29-2021 ambulatory SHER THORPE Facility:[facility] Start: 06-29-2021 End: 06-29-[address] FUAD KRAFT Facility:[facility] Start: 06-25-2021 End: 06-26-[address] ARMANI CABRAL . Facility:[facility] Start: 06-24-2021 End: 06-25-[address] ARMANI CABRAL . Facility:[facility] Start: 06-09-2021 End: 06-10-[address] ARMANI CABRAL . Facility:[facility] Start: 03-08-2019 End: 03-08-2019 Patient encounter procedure PROVIDER NOT IN SYSTEM [facility] Start: 03-08-2019 End: 03-08-2019 Emergency department patient visit Jean-Claude Peacockal Work Phone: [facility] Comment on above: Torsion of left ovar y and ovarian pedicle (Primary Dx); Left ovarian cyst Procedures Date Procedure Procedure Detail Performing Clinician Start: 06-27-2024 Us transvaginal Esme J Bob DO Work Phone: Start: 06-27-2024 Urnls dip stick/tablet reagent auto microscopy Esme J Bob DO Work Phone: Start: 06-27-2024 Basic metabolic panel calcium total Esme J Bob DO Work Phone: Start: 06-27-2024 Blood typing serologic abo Esme J Iqb al DO Work Phone: Start: 02-14-2024 ALL CBC WITH AUTO DIFF Generic External Data Provider Start: 08-13-2021 Extraction of Products of Conception, Low Cervical, Open Approach DR ARMANI CABRAL . Start: 03-08-2019 Transvaginal doppler ultrasonography of pelvis Jean-Claude Adam Egal Work Phone: Start: 03-08-2019 Choriogonadotropin ( test) [Presence] in Urine Jean-Claude Adam Egal Work Phone: Start: 03-08-2019 Urinalysis Jean-Claude Adam Egal Work Phone: Start: 03-08-2019 Basic metabolic 2000 panel - Serum or Plasma Jean-Claude Peacockal Work Phone: Start: 03-08-2019 Complete blood count with white cell differential, automated Jean-Claude Kia Egal Work Phone: Start: 03-08-2019 Complete blood count with white cell differential, manual Jean-Claude Kia [employer] Work Phone: Start: 04-04-2018 Microscopic observation [Identifier] in Cervix by Cyto stain Bhupendra Painter DO Work Phone: Plan of Treatment Date Care Activity Detail Author Start: 02-20-2024 End: 02-20-2024 Professional / ancillary services management 02/20/2024 11:00 AM EST Ancillary Procedure [facility] [address] [address] [facility] Start: 02-14-2024 End: 02-13-2025 Antimullerian hormone (AMH) Antimullerian hormone (AMH) Lab Routine Irregular bleeding PCOS (polycystic ovarian syndrome) Expected: 02/14/2024 (Approximate), Expires: 02/13/2025 [facility] Comment on above: Expected: 02/14/2024 (Approximate), Expires: 02/13/2025 Start: 02-14-2024 End: 02-13-2025 DHEA DHEA Lab Routine PCOS (polycystic ovarian syndrome) Expected: 02/14/2024 (Approximate), Expires: 02/13/2025 [facility] Comment on above: Expected: 02/14/2024 (Approximate), Expires: 02/13/2025 Start: 02-14-2024 End: 02-13-2025 US Pelvis US Pelvis w/ TV Imaging Routine PCOS (polycystic ovarian syndrome) Expected: 02/14/2024, Expires: 02/13/2025 [facility] Comment on above: Expected: 02/14/2024 , Expires: 02/13/2025 Start: 10-09-2023 Influenza vaccination Influenza Vacc ine (#1) [facility] Start: 04-04-2023 Screening for malign ant neoplasm of cervix [facility] Start: 10-08-2018 Influenza vaccinatio n given SEQUENTIAL INFLUENZA VACCINE (#1) [facility] Start: 1993 History and physical examination, annual for health maintenance Wellness Visit [facility] Start: 1990 Screening for malign ant neoplasm of cervix PAP SMEAR [facility] Start: 1990 Tetanus vaccination TETANUS EVERY 10 YR [facility] CBC W Auto Different ial panel - Blood CBC and differential Lab Routine PCOS (polycystic ovarian syndrome) Ordered: 02/14/2024 [facility] Comment on above: Ordered: 02/14/2024 DHEA-sulfate DHEA-sulfate Lab Routine PCOS (polycystic ovarian syndrome) Ordered: 02/14/2024 [facility] Comment on above: Ordered: 02/14/2024 Follicle stimulating hormone Follicle stimulating hormone Lab Routine PCOS (polycystic ovarian syndrome) Ordered: 02/14/2024 [facility] Comment on above: Ordered: 02/14/2024 hCG, quantitative, hCG, quantitative, Lab Routine PCOS (polycystic ovarian syndrome) Ordered: 02/14/2024 [facility] Work Phone: Comment on above: Ordered: 02/14/2024 Hemoglobin A1c/Hemoglobin.total in Blood Hemoglobin A1c Lab Routine Irregular bleeding Ordered: 02/14/2024 [facility] Comment on above: Ordered: 02/14/2024 Luteinizing hormone Luteinizing hormone Lab Routine PCOS (polycystic ovarian syndrome) Ordered: 02/14/2024 [facility] Comment on above: Ordered: 02/14/2024 Procedure on tissue specimen Tissue Exam Pathology and Cytology STAT Release Upon Ordering for 1 Occurrences starting 03/08/2019 [facility] Comment on above: Release Upon Orderin g for 1 Occurrences starting 03/08/2019 Thyrotropin [Units/volume] in Serum or Plasma TSH Lab Routine PCOS (polycystic ovarian syndrome) Ordered: 02/14/2024 [facility] Comment on above: Ordered: 02/14/2024 Thyroxine (T4) free [Mass/volume] in Serum or Plasma T4, free Lab Routine PCOS (polycystic ovarian syndrome) Ordered: 02/14/2024 [facility] Comment on above: Ordered: 02/14/2024 Immunizations Immunization Date Immunization Notes Care Provider Eli oneill 09-20-2019 influenza virus vacc ine, unspecified formulation Bhupendra Painter DO Work Phone: [facility] Payers Date Payer Category Payer Self-pay 2023 Private Health Insurance [facility] [id number] 2023 Private Health Insurance [id number] 2023 Medicaid [id number] 1990 Unknown [id number]. 593 1990 Unknown [id number] [id number]. 593 1990 Unknown [id number] 2.16.840.1.151228.3.579.2. 593 1990 Unknown [id number] 2.16.840.1.061281.3.579.2. 593 1990 Unknown [id number] 2.16.840.1.201318.3.579.2. 593 1990 Unknown [id number] 2.16.840.1.590113.3.579.2. 593 1990 Unknown [id number] 2.16.840.1.084398.3.579.2. 593 1990 Unknown [id number] 2.16.840.1.966722.3.579.2. 593 1990 Unknown [id number] 2.16.840.1.467336.3.579.2. 593 1990 Unknown [id number] 2.16.840.1.272117.3.579.2. 1259 1990 Unknown [id number] 2.16.840.1.274837.3.579.2. 1259 1990 Unknown [id number] 2.16.840.1.109891.3.579.2. 1259 1990 Unknown [id number] 2.16.840.1.244594.3.579.2. 1259 1990 Unknown [id number] [id number]. 1259 1959 Unknown [id number] Social History Date Type Detail Facility Start: 03-08-2019 End: 06-27-2024 Tobacco smoking status [facility] Never smoker [facility] Start: 03-08-2019 End: 06-27-2024 Alcohol intake Lifetime non-drinker (finding) [facility] Start: 03-08-2019 History SDOH Alcohol Frequency 1 [facility] Start: 1990 Sex Assigned At Not on file O [facility] Start: 1990 Sex Assigned At Female F [facility] Start: 03-14-2023 End: 06-27-2024 History of Social function [facility] Start: 03-14-2023 End: 06-27-2024 Tobacco use panel [facility] Start: 06-27-2024 Tobacco use and exposure Smokeless tobacco non-user [facility] How often to you hav e a drink containing alcohol? Never [facility] How many standard drinks containing alcohol do you have on a typical day? Patient does not drink [facility] [facility] [facility] Start: 06-27-2024 Sex Female (finding) [facility] Medical Equipment Procedure Code Equipment Code Equipment Origin al Text Equipment Identifier Dates Hemostat 1gm Isauro sta - [id number] [facility] Start: 03-08-2019 Functional Status Date Assessment Result Facility [facility] Hospital Discharge instructions 06-27-2024 Discharge InstructionsAttachments Note Date & Type Note Facility 06-27-2024 Hospital Discharg e instructions Esme Bob DO - 06/27/2024 9:41 AM EDT Start taking the medication prescribed to you by Dr. Painter's office. Follow-up with them in the clinic tomorrow morning at 8:30 AM. Return to the emergency department if you have any worsening bleeding or symptoms. The following attachments cannot be sent through Care Everywhere.Vaginal Bleeding (Finnish)documented in this encounter [facility] History of Present illness Narrative 02-14-2024 Rachael GrecoCITLALY - 02/14/2024 8:40 AM EST Note Date & Type Note Facility 02-14-2024 History of Presen t illness Narrative Reason for Appointment: Patient ID: Elidia Lema is a 34 y.o. female who presents for Menstrual Problem (Irregular Bleeding) Patient presents today for Acute Visit. MEDICATIONS Current Outpatient Medications Medication Instructions acetaminophen (TYLENOL) 1,000 mg, Every 4 hours PRN ibuprofen (MOTRIN) 800 mg multivitamin (Theragran) tablet 1 tablet, Daily ondansetron (Zofran) 4 MG tablet Every 8 hours PRN ALLERGIES Allergies Allergen Reactions Penicillins Anaphylaxis Stop breathing Stopped breathing Sulfa Antibiotics Hives Penicillin G Hives Codeine Other Reaction(s): GI Intolerance, Intolerance GI intolerance PROBLEMS Active Ambulatory Problems Diagnosis Date Noted Chronic depressive disorder (CMS/HCC) 03/17/2023 Endometriosis 03/17/2023 Resolved Ambulatory Problems Diagnosis Date Noted No Resolved Ambulatory Problems Past Medical History: Diagnosis Date Endometriosis, unspecified Hx of being hospitalized HISTORY PAST MEDICAL HISTORY SOCIAL HISTORY Past Medical History: Diagnosis Date Endometriosis, unspecified Hx of being hospitalized childbirth Social History Tobacco Use Smoking status: Never Smokeless tobacco: Not on file Substance Use Topics Alcohol use: Not on file Drug use: Not on file FAMILY HISTORY Family History Problem Relation Name Age of Onset No Known Problems Daughter SURGICAL HISTORY Past Surgical History: Procedure Laterality Date DILATION AND CURETTAGE OF UTERUS 07/28/2023 ovarian cyst LAPAROSCOPY DIAGNOSTIC / BIOPSY / ASPIRATION / LYSIS PAP SMEAR 2019 WISDOM TOOTH EXTRACTION REVIEW OF SYSTEMS Review of Systems: Review of Systems Constitutional: Negative. HENT: Negative. Eyes: Negative. Respiratory: Negative. Cardiovascular: Negative. Gastrointestinal: Negative. Genitourinary: Positive for menstrual problem. Musculoskeletal: Negative. Skin: Negative. Neurological: Negative. All other systems reviewed and are negative. Hematological: Negative. Endocrine: Negative. Allergic/Immunologic: Negative. OBJECTIVE Objective: Physical Exam Constitutional: Appearance: Normal appearance. She is well-developed. Cardiovascular: Rate and Rhythm: Normal rate and regular rhythm. Pulmonary: Effort: Pulmonary effort is normal. Breath sounds: Normal breath sounds. Abdominal: General: Bowel sounds are normal. There is no distension. Palpations: Abdomen is soft. Tenderness: There is no abdominal tenderness. There is no guarding or rebound. Musculoskeletal: General: No swelling. Normal range of motion. Right lower leg: No edema. Left lower leg: No edema. Neurological: Mental Status: She is alert and oriented to person, place, and time. Skin: General: Skin is warm and dry. Psychiatric: Mood and Affect: Mood normal. Behavior: Behavior normal. Vitals and nursing note reviewed. Exam conducted with a cashier courtesy booth present. Vitals: Estimated body mass index is 23.88 kg/m as calculated from the following: Height as of this encounter: 5' 3 . Weight as of this encounter: 134 lb 12.8 oz. BP: 120/70 Patient's last menstrual period was 2024. ASSESSMENT & PLAN ICD-10-CM 1. Irregular bleeding N92.6 Pt has complaints of irregular bleeding. Pt has dx lap with removal of cyst in July of 2023. Pt given labs and ultrasound to have obtained. Pt to start femara, days 3-7 of cycle. Pt to start progesterone for 14 days. Pt to call office once period starts and will call in femara and order progesterone lab. Pt to return to office as needed. Documented by Rachael Greco LPN on behalf of: Bhupendra Painter DO documented in this encounter [facility] Progress note 04-14-2020 Note Date & Type Note Facility 04-14-2020 Note HNO ID: [id number] Author: Yuli Pulliam Service: ? Author Type: Physician Type: Progress Notes Filed: 04/14/2020 2:04 PM Note Text: Elidia Lema is a 30 year old female who presents for a follow up for endometriosis. HPI: 30yo with hx of endometriosis and CPP Pt travels from [place] and receives primary relationship counselor care with her local provider. Underwent RA-lsc [...] which included preparing to see the patient, [id number] patient care, completing clinical documentation and counseling and educating the patient/family/caregiver Medical Decision Making Yuli Pulliam MD [facility] Evaluation note Note Date & Type Note Facility Evaluation note [facility] Work Phone: Evaluation note Note Date & Type Note Facility Evaluation note Diagnosis Irregular bleeding Irregular menstrual cycle PCOS (polycystic ovarian syndrome) Polycystic ovaries documented in this encounter [facility] Evaluation note Note Date & Type Note Facility Evaluation note Diagnosis Vaginal bleeding- Primary Other specified noninflammatory disorder of vagina documented in this encounter [facility] History of Present Illness * Pretty Walker [...] ovarian cyst Other and unspecified ovarian cyst Advance Directives Documents on File Type Date Recorded 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 Has been bleeding heavily since approx. 0200. Saturating an overnight pad every 45 minutes. Durga Brewster MD - 03/08/2019 5:26 PM ESTChambDurga whitt MD - 03/08/2019 5:23 PM EST H&P Notes (unrecognized sect ion and content) INTERVAL HISTORY AND PHYSICAL Patient Name: Elidia Hill Admit Date: MR #: [id number] : 1990 The H&P has been reviewed [...] and the risks of general anesthetic including IL, CVA, sudden or even reaction to anesthetic [...] ORDERS FOR MEDS RECEIVED ED PROVIDER NOTE [facility] EMERGENCY DEPARTMENT NAME: Elidia Hill AGE: 29 y.o. : 1990 VISIT DATE: 03/08/2019 CSN: [id number] PCP: Provider Not in System Chief Complaint [...] file Gets together: Not on file Attends yazidi service: Not on file Active member of [...] at [place], Dr. Cabral. After consultation with independent producer on-call, Dr. Brewster patient is admitted under [...] (29 y.o.) Date of Service: 03/08/2019 CSN: [id number] Procedure(s): Left Ovarian Cystectomy, Lysis of Adhesions Pre-Operative Diagnoses: * Left Ovarian Torsion Post-Operative Diagnoses: Surgeon(s) and Role: * Durga Brewster MD - Primary Anesthesiologist: Pedro Dejesus MD PUMPER HEAD: Radha López CRNA; Shy Ahn CRNA Spray Rig Operator: Radha Juan RN; Ara Cervantes RN Scrub [...] Left TISSUE EXAM Durga Brewster MD 03/08/2019 [id number] Implant(s): Implant Name Type Inv. Item Serial No. Usability Architect Lot No. LRB No. Used Action HEMOSTAT 1GM AMANDA - [id number] HEMOSTAT 1GM NLP [employer] [id number] Left 1 Implanted Drain(s): * No LDAs found * Wound(s): Wound 03/08/19 Surgical Wound Vagina (Active) Wound 03/08/19 Surgical Wound Abdomen Left (Active) Durga Brewster MD 03/08/2019 6:00 PM documented in this encounter INFORMATION SOURCE (unrecogn ized section and content) DATE CREATED AUTHOR 03/15/2019 [facility] DATE CREATED AUTHOR AUTHOR'S ORGANIZ ATION 12/04/2020 [facility] DATE CREATED AUTHOR AUTHOR'S ORGANIZ ATION 04/01/2021 [facility] DATE CREATED AUTHOR AUTHOR'S ORGANIZ ATION 05/30/2022 [facility] DATE CREATED AUTHOR AUTHOR'S ORGANIZ ATION 07/30/2023 [facility] DATE CREATED AUTHOR AUTHOR'S ORGANIZ ATION 02/23/2024 [facility] EPIC Care Teams (unrecognized sec tion and content) Team Status: Inactive Member Role Status Dates Bhupendra Painter Attending Provider Active Start: 2023 End: July 28, 2023 Sorter Lumber Straightener Relationship Specialty Start Date End Date Riley Lackey MD [address] [place] [id number] PCP - General Family Medicine 06/14/23 [employer]orter Lumber Straightener Relationship Specialty Start Date End Date Riley Lackey MD [address] [place] [phone] PCP - General Family Medicine 06/14/23 Sorter Lumber Straightener Relationship Specialty Start Date End Date Riley Lackey MD [address] [place] [phone] PCP - General Family Medicine 06/14/23 Sorter Lumber Straightener Relationship Specialty Start Date End Date Riley Lackey MD [address] [place] [address] PCP - General Family Medicine 06/27/24 Goals (unrecognized section and content) Goals may be documented in a n alternate section Scheduled Active and Recently Administ ered Medications (unrecognized section and content) Medication Order 06/25/2024 06/26/2024 06/27/2024 ketorolac (TORADOL) injection 30 mg (COMPLETED) 30 mg, IntraVENous, ONCE, 1 dose, On Tue06/27/24 at 0900, Do not administer for more than 5 days. 0902 (Given - Provid er: Ranjana Vo RN) FOR RECORDS PERTAINING TO PATIENTS WHO ARE [...] BE BASED ON THE PRIMARY CLINICAL RECORDS. [employer] [facility]. provides no warranty or guarantee of the accuracy or completeness of information in this document.
== END 2024-07-03 14:42 | disposition home or self-care (01) ==
LOC: LAB 14:44
PROVIDERS: PCP Family Medicine; Visit Provider Physician Assistant
DX: D64.9 Anemia, unspecified (principal)
CPT/HCPCS: 36415; 85025